=== PATIENT | female | born 1945 | race Caucasian/White ===

== ENCOUNTER → 2019-09-21 14:53 | Outpatient (CLI) | payer MEDICARE, OTHER, SELFPAY ==
[2016-06-11 09:04] VITALS: BMI 25.7
[2019-09-21 16:41] LABS: CRP 6.11 mg/L (0.0-3.0)
[2019-09-24 16:08] LABS: Endomysial Antibody IgA Negative (Negative)
[2019-09-25 13:06] LABS: Immunoglobulin A 318 mg/dL (64-422); t-Transglutaminase IgA <2 U/mL (0-3)
== END ==
PROVIDERS: Family Provider Nurse Practitioner Primary Care; PCP Nurse Practitioner Primary Care; Referring Provider Internal Medicine Gastroenterology; Visit Provider Internal Medicine Gastroenterology
DX: R19.7 Diarrhea, unspecified (principal)
CPT/HCPCS: 36415; 82784; 83516; 86140; 86255

== ENCOUNTER → 2023-06-26 | Outpatient (CLI) | payer MEDICARE, OTHER, SELFPAY ==
--- NOTE | 2023-06-26 13:03 | BD_ITS ---
STUDY: DUAL ENERGY X-RAY ABSORPTIOMETRY / DXA REASON FOR EXAM: Female, 77 years old. SCREENING TECHNIQUE: Bone Mineral Density (BMD) measurements of left forearm and bilateral hips were obtained. COMPARISON: None. FINDINGS: Left Femur Total: g/cm2 (0.807) / T-score (-1.1) / Z-score (0.9) Left Femoral Neck: g/cm2 (0.669) / T-score (-1.6) / Z-score (0.6) Right Femur Total: g/cm2 (0.761) / T-score (-1.5) / Z-score (0.5) Right Femoral Neck: g/cm2 (0.655) / T-score (-1.8) / Z-score (0.5) Left Forearm: g/cm2 (0.481) / T-score (-1.8) / Z-score (1.0) BD/Dexa Bone Density Study IMPRESSION: The patient is considered osteopenic as outlined below according to World Ernesto Organization (WHO) criteria with a moderate fracture risk. Reference Information: The T-score is the number of standard deviations above or below the standard which is normal for young adults at their peak bone mineral density. The World Health Organization (WHO) interprets the T-scores as follows: Above -1 Normal bone density Between -1 and -2.5 Osteopenia Equal to / or below -2.5 Osteoporosis As a practical clinical guideline, osteopenia may be graded as follows: Mild -1 through -1.5 Moderate -1.6 through -2.0 Severe -2.1 through -2.4 The Z-score is the number of standard deviations above or below age-matched controls. A Z-score of less than -1.5 would be considered abnormal. References: 1. NIH Osteoporosis and Related Bone Diseases www osteo.org 2. International Society for Clinical Densitometry www iscd.org 3. National Osteoporosis Foundation www nof.org Electronically Signed: Sheldon Gibbons MD at 14:13 EDT ,
== END | disposition home or self-care (01) ==
PROVIDERS: PCP Nurse Practitioner Primary Care; Referring Provider Internal Medicine Hematology & Oncology; Visit Provider Internal Medicine Hematology & Oncology
DX: Z78.0 Asymptomatic menopausal state (principal); I74.9 Embolism and thrombosis of unspecified artery
CPT/HCPCS: 77080

== ENCOUNTER 2024-03-14 15:06 | Observation (INO) | payer MEDICARE, OTHER, SELFPAY ==
[2024-03-14] VITALS (11 sets, daily range): BP systolic 139–187; BP diastolic 68–121; PULSE 78–115; RESP 16–30; TEMP 35.9–36.6; O2SAT 93–99; BMI 24.0; BMI 24.6
--- NOTE | 2024-03-14 15:08 | EKG12_ITS ---
Test Reason : POSS STROKE Blood Pressure : / mmHG Vent. Rate : 086 BPM Atrial Rate : 086 BPM P-R Int : 156 ms QRS Dur : 082 ms QT Int : 410 ms P-R-T Axes : 000 -02 037 degrees QTc Int : 490 ms Sinus rhythm with Premature atrial complexes Prolonged QT Abnormal ECG Confirmed by Rodney Benton ([id number]), map editor LISETTE ROMO ([id number]) on 03/16/2024 7:58:25 AM Referred By: Confirmed By:Rodney Benton
--- NOTE | 2024-03-14 15:08 | CT_ITS ---
We are attempting to reach an attending provider to discuss findings. An addendum with communication details will be sent when the communication is complete. STUDY: CT BRAIN WITHOUT CONTRAST REASON FOR EXAM: Female, 78 years old. Neuro deficit, acute, stroke suspected Individualized dose optimization techniques were used for this CT. TECHNIQUE: Transaxial CT imaging of the brain was performed without administration of intravenous contrast material. COMPARISON: None FINDINGS: There are calcifications noted in the distal vertebral arteries. There are calcifications noted in the cavernous carotid arteries. This is consistent for atherosclerotic disease. Normal calvarium. Normal soft tissues. There is mild cerebral atrophy with widening of the extra-axial spaces and ventricular dilatation. There are areas of decreased attenuation within the white matter tracts of the supratentorial brain, consistent with microvascular disease changes. Old left basal ganglia infarct. Normal brainstem. There is mild cerebellar atrophy. There is no intracranial hemorrhage. There are no findings of an acute ischemic infarction. Degenerative changes of the mandibular condyles. ASPECTS Score for Acute Strokes: 07/01 CT/STROKE Brain/Head without Cont IMPRESSION: There are no acute findings. Chronic involutional changes of the brain. Electronically Signed: Orville Edwards MD at 15:19 EDT ,
--- NOTE | 2024-03-14 15:09 | CT_ITS ---
We are attempting to reach an attending provider to discuss findings. An addendum with communication details will be sent when the communication is complete. EXAM: CT ANGIOGRAPHY HEAD AND NECK WITH INTRAVENOUS CONTRAST CLINICAL INDICATION: Neuro deficit, acute, stroke suspected TECHNIQUE: [place]/head and neck CT angiography protocol performed with intravenous contrast. This CT exam was performed using one or more of the following dose reduction techniques: automated exposure control, adjustment of the mA and/or kV according to patient size, and/or use of iterative reconstruction technique. MIP reconstructed images were created and reviewed. CONTRAST: IV 100mL Isovue-[id number] RADIATION DOSE: CTDIvol = 21.26 mGy, DLP = 646.06 mGy-cm COMPARISON: No relevant prior studies available. FINDINGS: HEAD: RIGHT ANTERIOR CEREBRAL ARTERY: Unremarkable. No occlusion or significant stenosis. Anterior communicating artery is present. No aneurysm. RIGHT MIDDLE CEREBRAL ARTERY: Unremarkable. No occlusion or significant stenosis. No aneurysm. RIGHT POSTERIOR CEREBRAL ARTERY: Unremarkable. No occlusion or significant stenosis. No aneurysm. 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 No significant stenosis. No dissection or occlusion. RIGHT INTRACRANIAL VERTEBRAL ARTERY: Unremarkable. No significant stenosis. No dissection or occlusion. LEFT ANTERIOR CEREBRAL ARTERY: Unremarkable. No occlusion or significant stenosis. No aneurysm. LEFT MIDDLE CEREBRAL ARTERY: Unremarkable. No occlusion or significant stenosis. No aneurysm. LEFT POSTERIOR CEREBRAL ARTERY: Unremarkable. No occlusion or significant stenosis. No aneurysm. LEFT INTRACRANIAL INTERNAL CAROTID ARTERY: Unremarkable. No significant stenosis. No dissection or occlusion. LEFT INTRACRANIAL VERTEBRAL ARTERY: Unremarkable. No significant stenosis. No dissection or occlusion. BASILAR ARTERY: Unremarkable. No occlusion or significant stenosis. No aneurysm. OTHER VASCULATURE: There is calcified plaque formation of the right cavernous carotid artery, with a mild stenosis (less than 50%). ALL ABOVE CRITERIA BY NASCET. There is calcified plaque formation of the left cavernous carotid artery, with a mild stenosis (less than 50%). ALL ABOVE CRITERIA BY NASCET. No vascular malformation. NECK: RIGHT COMMON CAROTID ARTERY: Unremarkable. No significant stenosis. No dissection or occlusion. RIGHT EXTRACRANIAL INTERNAL CAROTID ARTERY: There is mild atherosclerotic plaque formation of the origin of the right internal carotid artery with less than 50% cross sectional diameter stenosis. ALL ABOVE CRITERIA BY NASCET. No dissection or occlusion. RIGHT EXTERNAL CAROTID ARTERY: Unremarkable. No occlusion. RIGHT EXTRACRANIAL VERTEBRAL ARTERY: Unremarkable. No significant stenosis. No dissection or occlusion. LEFT COMMON CAROTID ARTERY: Unremarkable. No significant stenosis. No dissection or occlusion. LEFT EXTRACRANIAL INTERNAL CAROTID ARTERY: There is mild atherosclerotic plaque formation of the origin of the left internal carotid artery with less than 50% cross sectional diameter stenosis. ALL ABOVE CRITERIA BY NASCET. No dissection or occlusion. LEFT EXTERNAL CAROTID ARTERY: Unremarkable. No occlusion. LEFT EXTRACRANIAL VERTEBRAL ARTERY: Unremarkable. No significant stenosis. No dissection or occlusion. BRACHIOCEPHALIC AND SUBCLAVIAN ARTERIES: Unremarkable as visualized. No occlusion or significant stenosis. LUNG APICES: Unremarkable as visualized. HEAD and NECK: BONES/JOINTS: There are degenerative findings of the cervical spine. No discrete lytic or blastic abnormalities. SOFT TISSUES: Unremarkable. OTHER FINDINGS: Post-processing of the images was performed, with axial imaging and 3D reconstruction. MIPS images were obtained. CAROTID STENOSIS REFERENCE USING NASCET CRITERIA: % ICA stenosis = (1 - narrowest ICA diameter/diameter of distal cervical ICA) x 100. Mild - <50% stenosis. Moderate - 50-69% stenosis. Severe - 70-94% stenosis. Near occlusion - 95-99% stenosis. Occluded - 100% stenosis. CT/STROKE CTA Head AND Neck W/Con IMPRESSION: 1. 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 2. There is mild atherosclerotic plaque formation of the origin of the right internal carotid artery with less than 50% cross sectional diameter stenosis. ALL ABOVE CRITERIA BY NASCET. 3. There is mild atherosclerotic plaque formation of the origin of the left internal carotid artery with less than 50% cross sectional diameter stenosis. ALL ABOVE CRITERIA BY NASCET. 4. There is calcified plaque formation of the right cavernous carotid artery, with a mild stenosis (less than 50%). ALL ABOVE CRITERIA BY NASCET. 5. There is calcified plaque formation of the left cavernous carotid artery, with a mild stenosis (less than 50%). ALL ABOVE CRITERIA BY NASCET. Electronically Signed: Orville Edwards MD at 15:38 EDT ,
--- NOTE | 2024-03-14 15:10 | EDS_ITS ---
HPI History of Present Illness Chief Complaint: Stroke Alert Informant: EMS Onset/Context/Timing Onset: Today Context: Sudden Onset Timing: Continuous Quality and Location: Positive for Right Arm Weakness, Right Leg Weakness and Expressive Aphasia Current Severity: Severe Maximum Severity: Severe Narrative Narrative: 78-year-old female from local long term has a history of prior breast cancer, anxiety and dementia. Reportedly around 230 this afternoon had sudden onset of decreased mental status, expressive aphasia and right-sided weakness. Patient herself is unable to give any history. History currently is from the paramedics. She was assessed in the ambulance bay and taken directly to CAT scan. She is admitted to stroke team. Prior similar symptoms: No Recent [facility] Medical History Encounter for education Breast cancer, left breast Seizure disorder Stroke Vaginal itching Ulcerative colitis Sleep apnea Hypercholesteremia MVP (mitral valve prolapse) Low back pain Left hip pain Insomnia IBS (irritable bowel syndrome) Hypokalemia HTN (hypertension) Panic attacks GERD (gastroesophageal reflux disease) Expressive aphasia Eczema Dermatitis Depression Dementia Chronic osteoarthritis Chronic neck pain Chest wall pain Blepharitis of right eye Back pain Atrophic vaginitis Arthritis Anxiety Abdominal pain Amnesia Home Medications ?Medication ?Instructions ?Recorded ?Last Taken ?Type amlodipine 10 mg tablet 10 mg PO DAILY 06/07/16 06/11/16 06:30 History hydralazine 50 mg tablet 50 mg PO BID 06/07/16 06/11/16 06:30 History atorvastatin 10 mg tablet 10 mg PO DAILY 04/30/23 Unknown History losartan 50 mg tablet 50 mg PO DAILY 04/30/23 Unknown History sertraline 50 mg tablet 50 mg PO DAILY 10/14/23 Unknown History trazodone 100 mg tablet 100 mg PO QHS PRN insomnia 10/14/23 Unknown History anastrozole 1 mg tablet 1 mg PO DAILY #90 TABLETS 12/01/23 Unknown Rx cyclobenzaprine 10 mg tablet 10 mg PO TID 03/14/24 Unknown History hydroxyzine HCl 25 mg tablet 25 mg PO QHS 03/14/24 Unknown History Allergy/AdvReac Type Severity Reaction Status Date / Time VIET Inhibitors Allergy Unknown Itching Verified 10/14/23 14:31 imipramine (From Tofranil) Allergy Unknown Vomiting Verified 10/14/23 14:31 naproxen (From Naprosyn) AdvReac Unknown PT UNSURE Verified 10/14/23 14:31 OF REACTION ondansetron (From Zofran) AdvReac Unknown Constipatio Verified 10/14/23 14:31 n zolpidem (From Ambien) AdvReac Unknown Other Verified 10/14/23 14:31 codeine AdvReac Other Verified 10/14/23 14:31 Family History Mother Cancer LUNG Sister Alzheimer disease Breast cancer Fibromyalgia Migraine CVA (cerebral vascular accident) Brother Alzheimer disease Cancer STOMACH Myocardial infarction Daughter Suicide Surgical History History of arthroscopic knee surgery History of appendectomy History of carpal tunnel release History of cholecystectomy History of lumbar fusion Social History Smoking Status: Never smoker alcohol intake: never substance use type: does not use ROS ROS ED ROS Narrative Unknown. Review of Systems ROS Unobtainable: due to mental status EXAM Physical Exam Narrative Exam Narrative: 78-year-old female on a ambulance cart being assessed in the hallway. Initial blood sugar was 154 vital signs are pending. H EENT exam limited speech. Neck nontender. Lungs are clear. Heart regular rhythm no murmur. Chest wall ribs nontender. Abdomen soft nontender. Extremities no obvious deformity. She appears to have weakness and paralysis to the right upper or right lower extremity. Neurologically she is speaking in nonsensical phrases. She has right-sided weakness. Const Vital Signs: 03/14/24 15:11 03/14/24 15:18 03/14/24 15:26 Temperature 96.7 F L Temperature Source Temporal Pulse Rate 93 94 Respiratory Rate 19 H 20 H Blood Pressure 148/68 H 187/121 H Blood Pressure Mean 94 143 Pulse Ox 97 98 Oxygen Delivery Method Room Air Room Air Room Air 03/14/24 15:27 03/14/24 15:38 Temperature Temperature Source Pulse Rate 96 86 Respiratory Rate 25 H 30 H Blood Pressure 179/73 H 178/83 H Blood Pressure Mean 108 114 Pulse Ox 98 93 Oxygen Delivery Method Room Air Room Air Positive well nourished and well developed; Negative for cachectic, contractures or unkempt General Appearance ED: well developed; Negative for unkempt, cachectic, contractures or NAD Nutritional Appearance: Negative for cachectic HEENT Reports moist mucous membranes Negative for atraumatic or trauma Eyes PERRL and EOMs intact bilaterally General Eye ED: Negative for pale conjunctiva or scleral icterus Neck no lymphadenopathy, supple and no JVD Chest Wall inspection of chest normal and palpation of chest normal Resp normal respiratory effort and clear to auscultation bilaterally Effort and Inspection: Negative for retractions Auscultation: Negative for rales, rhonchi or wheezes Cardio no murmurs Rate: regular rate Rhythm: regular rhythm GI normal to inspection, nondistended, normoactive bowel sounds, soft to palpation, non-tender, non-distended and no masses Inspection: Negative for abdominal distention Auscultation: normoactive bowel sounds Palpation: Negative for tender, guarding or hepatomegaly Back/Spine no CVA tenderness Extremity normal to inspection General Extremety ED: Negative for deformity or edema General Extremity: Negative for deformity or edema Neuro No oriented x3 Sensorium / Orientation: alert Speech: Negative for speech normal Motor Exam: strength abnormal; Negative for strength 5/5 throughout Psych Negative for mental status grossly normal Appearance: Negative for unkempt Skin no wounds General Skin Exam: Negative for jaundice Lesions: no lesions Rashes: no rashes NIHSS NIHSS Initial: 1a Level of Consciousness: 1 1b LOC Questions (Score 2 if aphasic/stupor): 0 1c LOC Commands (Only score 1st attempt): 0 2 Best Gaze (If aphasic, use reflexive mvmts.): 0 3 Visual: 0 4 Facial Palsy: 0 5 Motor Arm Right (UN = amputation/fusion): 4 5 Motor Arm Left: 0 6 Motor Leg Right: 4 6 Motor Leg Left: 0 7 Limb ataxia (Only + if out of proportion): 2 8 Sensory (Aphasia/stupor=0 or 1, coma=2): 0 9 Best Language: 1 10 Dysarthria (mute, coma=2, intubated=UN): 0 11 Extinction and Inattention (only scored if +): 1 Total Score: 13 MDM MDM MDM Narrative Medical decision making narrative: 78-year-old female from a local nursing facility with onset of strokelike symptoms of right-sided weakness since around 230. Is been made a stroke team currently is in CT. Repeat exam at 3:30 PM shortly after she arrived patient returned from CAT scan her neurological symptoms is completely resolved. Her NIH now is 0. She has normal speech. No facial droop. 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 I suspect she had a TIA. Patient's initial NIH is around 13. On repeat exam at 0. She has regained all of her motor function. And speech. History & Record Review Discussion w/independent historian: Patient Lab Data Attestation: I reviewed the patient's lab results. Lab results narrative: CT of the brain without contrast shows no acute abnormality. No bleed. No acute stroke. CTA shows a possible 6 aneurysm. CBC shows a white count of 6. H&H 11.8 and 36. Platelets 283. Chemistries show potassium of 3.1. Gap of 8. BUN of 13 creatinine 1.1. Glucose 162. Troponin 9. Labs: Laboratory Results - last 24 hr 03/14/24 15:15 WBC 6.1 RBC 3.97 L Hgb 11.8 L Hct 36.4 L MCV 91.7 MCH 29.7 MCHC 32.4 RDW Std Deviation 42.6 RDW Coeff of Fabian 12.8 Plt Count 283 MPV 9.4 Immature Gran % (Auto) 0.300 Neut % (Auto) 64.0 Lymph % (Auto) 23.7 Barron % (Auto) 9.7 Eos % (Auto) 1.6 Baso % (Auto) 0.7 Absolute Neuts (auto) 3.9 Absolute Lymphs (auto) 1.45 Nucleated RBC % 0 Sodium 144 Potassium 3.1 L Chloride 109 H Carbon Dioxide 27.0 Anion Gap 8 BUN 13 Creatinine 1.15 H Estim Creat Clear Calc 34.25 Est GFR (MDRD) Af Amer 59 L Est GFR (MDRD) Non-Af 48 L BUN/Creatinine Ratio 11.3 Glucose 162 H Calcium 9.0 Troponin I High Sens 9 Radiography Chest X-Ray - ED: 1 View, Read by ED Physician, Lungs, Mediastinum, Bony Structures, No Acute Disease and Chronic Changes Diagnostic Testing: Clinical Impression(s) from Imaging Studies Brain CT 03/14/24 15:08 IMPRESSION: There are no acute findings. Chronic involutional changes of the brain. Electronically Signed: Orville Edwards MD at 15:19 EDT , ADDENDUM: 03/14/24 1545 IMPRESSION: There are no acute findings. Chronic involutional changes of the brain. N.B. : The above Results were Read Back by Orville Edwards MD to Benjamin Espinoza MD, and understanding confirmed on 03/14/2024 15:39:00 (ET). Electronically Signed: Orville Edwards MD at 15:19 EDT , Head/Neck CTA 03/14/24 15:09 IMPRESSION: 1. 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 2. There is mild atherosclerotic plaque formation of the origin of the right internal carotid artery with less than 50% cross sectional diameter stenosis. ALL ABOVE CRITERIA BY NASCET. 3. There is mild atherosclerotic plaque formation of the origin of the left internal carotid artery with less than 50% cross sectional diameter stenosis. ALL ABOVE CRITERIA BY NASCET. 4. There is calcified plaque formation of the right cavernous carotid artery, with a mild stenosis (less than 50%). ALL ABOVE CRITERIA BY NASCET. 5. There is calcified plaque formation of the left cavernous carotid artery, with a mild stenosis (less than 50%). ALL ABOVE CRITERIA BY NASCET. Electronically Signed: Orville Edwards MD at 15:38 EDT , ADDENDUM: 03/14/24 1548 IMPRESSION: 1. 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 2. There is mild atherosclerotic plaque formation of the origin of the right internal carotid artery with less than 50% cross sectional diameter stenosis. ALL ABOVE CRITERIA BY NASCET. 3. There is mild atherosclerotic plaque formation of the origin of the left internal carotid artery with less than 50% cross sectional diameter stenosis. ALL ABOVE CRITERIA BY NASCET. 4. There is calcified plaque formation of the right cavernous carotid artery, with a mild stenosis (less than 50%). ALL ABOVE CRITERIA BY NASCET. 5. There is calcified plaque formation of the left cavernous carotid artery, with a mild stenosis (less than 50%). ALL ABOVE CRITERIA BY NASCET. N.B. : The above Results were Read Back by Orville Edwards MD to Benjamin Espinoza MD, and understanding confirmed on 03/14/2024 15:41:41 (ET). Electronically Signed: Orville Edwards MD at 15:38 EDT , Chest x-ray, portable, single view interpreted by myself shows no acute abnormality. Normal cardiac silhouette. Normal lung luis. Chronic changes. Rhythm Strip Rhythm Strip: Sinus Rhythm Rate: 86 Ectopy: PAC(s) EKG Initial EKG: Interpretation: Sinus Rhythm and No Acute Injury Pattern Comments: Normal sinus rhythm rate 86. Occasional PAC. No dysrhythmia. No IA. Discharge Plan Triage Chief Complaint: Stroke Alert ED Provider: Benjamin Espinoza Dx/Rx/DC Orders Clinical Impression: Brain TIA, Breast cancer, left breast, Acute hypokalemia Prescriptions: No Action atorvastatin 10 mg tablet 10 mg PO DAILY losartan 50 mg tablet 50 mg PO DAILY trazodone 100 mg tablet 100 mg PO QHS PRN (Reason: insomnia) sertraline 50 mg tablet 50 mg PO DAILY amlodipine 10 MG tablet 10 mg PO DAILY hydralazine 50 MG tablet 50 mg PO BID cyclobenzaprine 10 mg tablet 10 mg PO TID hydroxyzine HCl 25 mg tablet 25 mg PO QHS anastrozole 1 mg tablet 1 mg PO DAILY Qty: 90 3RF Primary Care Provider: Ruthann Mcdowell NP Referrals: Ruthann Mcdowell NP, TAX EXAMINING TECHNICIAN-C [Primary Care Provider] - Print Language: Icelandic
--- NOTE | 2024-03-14 15:15 | NURSING ---
NO OLD EKGS
--- NOTE | 2024-03-14 15:16 | ED.RN ---
Pt sent to CT from ems entrance, NIHSS not completed prior to CT scan.
[2024-03-14 15:28] LABS: Absolute Lymphocyte Count 1.45 X10^3/uL (0.83-4.51); Absolute Neutrophil Count 3.9 X10^3/uL (2.0-7.7); Basophil# 0.04 X10^3/uL; Basophil% 0.7 % (0-1); Eosinophils% 1.6 % (0-5); Hematocrit 36.4 % (37-47); Hemoglobin 11.8 g/dL (12.0-15.0); Lymphocyte # 1.45 X10^3/ul (0.83-4.51); Lymphocyte % 23.7 % (19-41); Mean Corp Hgb Conc 32.4 g/dL (32-36); Mean Corpuscular Hgb 29.7 pg (27.0-32.0); Mean Corpuscular Volume 91.7 fL (81-99); Mean Platelet Vol. 9.4 fl (6.2-12.0); Monocyte# 0.59 X10^3/uL; Monocyte% 9.7 % (0-10); NRBC Flagged by Analyzer 0 % (0-5); Neutrophil # 3.91 X10^3/uL (2.7-7.7); Platelet Count 283 K/mm3 (150-450); RBC Distribution Width CV 12.8 % (11.6-14.6); RBC Distribution Width SD 42.6 fl (35.1-43.9); Red Blood Count 3.97 M/mm3 (4.2-5.4); White Blood Count 6.1 K/mm3 (4.4-11.0)
[2024-03-14 15:40] LABS: Anion Gap 8 (5-15); BUN 13 mg/dL (7-18); BUN/Creat Ratio 11.3 RATIO (10-20); Chloride 109 mmol/L (98-107); Creatinine, Serum 1.15 mg/dL (0.55-1.02); EST Glomerular Filtration Rate 48 mL/min (>60); Est Glom Filt Rate - Afr Amer 59 mL/min (>60); Estimated Creatinine Clearance 34.25 ml/min; Glucose 162 mg/dL (74-106); Potassium 3.1 mmol/L (3.5-5.1); Sodium Level 144 mmol/L (136-145); Troponin-I HS 9 pg/mL (3.0-54.0)
--- NOTE | 2024-03-14 15:50 | RAD_ITS ---
STUDY: XR Chest 1 View 03/14/2024 3:49 PM REASON FOR EXAM: Female, 78 years old. Neuro deficit, acute, stroke suspected COMPARISON: None TECHNIQUE: XR Chest 1 View FINDINGS: There is no demonstrated pleural abnormality. There are multiple metallic clips in the left axilla. This is consistent for a prior axillary dissection. There are mastectomy changes noted. Normal heart size. Normal mediastinum. Normal fredi. Prominent appearing increased interstitial lung markings. Normal visualized pulmonary arteries. There is atherosclerotic calcification of the aortic arch with tortuosity. There are diffuse degenerative changes of the visualized thoracic spine. There is degenerative osteoarthritis of the bilateral shoulders. There are no acute findings of the upper abdomen. RAD/Chest 1 View IMPRESSION: There are no acute findings. Electronically Signed: Orville Edwards MD at 16:21 EDT ,
--- NOTE | 2024-03-14 15:53 | ED.RN ---
Per family, pt. orientation to place and time varies and she is commonly not oriented to place and time.
[2024-03-14 15:58] LABS: International Normalized Ratio 0.9; Prothrombin Time (Protime)PT. 12.5 SECONDS (11.7-14.9)
--- NOTE | 2024-03-14 16:44 | ED.RN ---
Dr. Espinoza notified of [facility] 4-6 depending on assessment. Pt. is disoriented baseline.
--- NOTE | 2024-03-14 17:01 | PCM.HP.STD ---
HPI - General General Date of Admission: 03/14/24 Date of Service: 03/14/24 Chief Complaint: Strokelike symptoms HPI Narrative VIJI AMANDA, is a 78 F who presented to [facility] ED on 03/14/2024 as a stroke alert. I saw patient at bedside in the ED, daughter present. Patient lives at [facility] and presented from there this afternoon with sudden onset decreased mental status, expressive aphasia and right-sided weakness. Per daughter, patient's family friend arrived later this afternoon and patient apparently did not recognize him and appeared to have slurring of her speech, so he called EMS. In the ED, patient's initial NIHSS score was 13 for level of consciousness, significant right arm weakness and sensory changes, slurred speech and inattention to right-sided deficits. She was taken urgently to CAT scan and had CT brain without contrast and CTA head/neck done. Upon returning from the scan, ED physician noted that the patient's symptoms had essentially resolved. She did remain somewhat confused and was speaking somewhat nonsensically but her right arm weakness and sensory changes had completely resolved. CT brain was unremarkable. CTA head/neck showed a small focal aneurysmal dilation of the distal right ICA measuring 7 mm in diameter, was otherwise unremarkable. On my encounter, patient was making appropriate eye contact with me but she had difficulty answering my questions appropriately. When I asked where she lived, she stated that she currently lives in [place] but also has a house in [place]. Per the daughter, they moved the patient to [place] about 2 months ago. Patient was living alone at home and was having more difficulty completing her ADLs on her own, so family made the decision to move her to [place]. Daughter notes that the patient was not very happy about this decision. Daughter also notes that the patient has began to have some cognitive impairment, though she currently is more confused than her normal. Vitals in the ED notable for hypertension with systolics in the 160s to 170s, otherwise unremarkable. Labs notable for potassium 3.1, creatinine 1.15 (baseline 0.9-1.0), glucose 165, otherwise unremarkable. Chest x-ray was unremarkable. CT head imaging with findings as noted above. EKG showed normal sinus rhythm with no ischemic changes. [facility] Medical History Encounter for education Breast cancer, left breast Seizure disorder Stroke Vaginal itching Ulcerative colitis Sleep apnea Hypercholesteremia MVP (mitral valve prolapse) Low back pain Left hip pain Insomnia IBS (irritable bowel syndrome) Hypokalemia HTN (hypertension) Panic attacks GERD (gastroesophageal reflux disease) Expressive aphasia Eczema Dermatitis Depression Dementia Chronic osteoarthritis Chronic neck pain Chest wall pain Blepharitis of right eye Back pain Atrophic vaginitis Arthritis Anxiety Abdominal pain Amnesia Home Medications ?Medication ?Instructions ?Recorded ?Last Taken ?Type amlodipine 10 mg tablet 10 mg PO DAILY blood pressure 06/07/16 06/11/16 06:30 History hydralazine 50 mg tablet 50 mg PO BID blood pressure 06/07/16 06/11/16 06:30 History atorvastatin 10 mg tablet 10 mg PO DAILY cholesterol 04/30/23 Unknown History losartan 50 mg tablet 50 mg PO DAILY blood pressure 04/30/23 Unknown History sertraline 50 mg tablet 50 mg PO DAILY mental health 10/14/23 Unknown History trazodone 100 mg tablet 100 mg PO QHS PRN insomnia 10/14/23 Unknown History anastrozole 1 mg tablet 1 mg PO DAILY breast cancer #90 12/01/23 Unknown Rx TABLETS cyclobenzaprine 10 mg tablet 10 mg PO TID muscle spasms 03/14/24 Unknown History hydroxyzine HCl 25 mg tablet 25 mg PO QHS itching 03/14/24 Unknown History Allergy/AdvReac Type Severity Reaction Status Date / Time VIET Inhibitors Allergy Unknown Itching Verified 10/14/23 14:31 imipramine (From Tofranil) Allergy Unknown Vomiting Verified 10/14/23 14:31 naproxen (From Naprosyn) AdvReac Unknown PT UNSURE Verified 10/14/23 14:31 OF REACTION ondansetron (From Zofran) AdvReac Unknown Constipatio Verified 10/14/23 14:31 n zolpidem (From Ambien) AdvReac Unknown Other Verified 10/14/23 14:31 codeine AdvReac Other Verified 10/14/23 14:31 Family History Mother Cancer LUNG Sister Alzheimer disease Breast cancer Fibromyalgia Migraine CVA (cerebral vascular accident) Brother Alzheimer disease Cancer STOMACH Myocardial infarction Daughter Suicide Surgical History History of arthroscopic knee surgery History of appendectomy History of carpal tunnel release History of cholecystectomy History of lumbar fusion Social History Smoking Status: Never smoker alcohol intake: never substance use type: does not use ROS Constitutional Constitutional: Denies chills, fatigue or fever(s) Eyes Eyes: Denies change in vision Cardiovascular Cardiovascular: Denies chest pain Respiratory/Chest Respiratory/Chest: Denies shortness of breath at rest Gastrointestinal Gastrointestinal: Denies abdominal pain Neurologic Neurologic: Reports abnormal speech and confusion; Denies headache(s), numbness or paresthesias Vital Signs Vital Signs Vital Signs: 03/14/24 15:11 03/14/24 15:18 03/14/24 15:26 Temperature 96.7 F L Temperature Source Temporal Pulse Rate 93 94 Respiratory Rate 19 H 20 H Blood Pressure 148/68 H 187/121 H Blood Pressure Mean 94 143 Pulse Ox 97 98 Oxygen Delivery Method Room Air Room Air Room Air 03/14/24 15:27 03/14/24 15:38 03/14/24 16:08 Temperature Temperature Source Pulse Rate 96 86 84 Respiratory Rate 25 H 30 H 19 H Blood Pressure 179/73 H 178/83 H 162/90 H Blood Pressure Mean 108 114 114 Pulse Ox 98 93 94 Oxygen Delivery Method Room Air Room Air Room Air 03/14/24 16:30 03/14/24 16:39 Temperature 97.8 F Temperature Source Pulse Rate 80 88 Respiratory Rate 18 18 Blood Pressure 139/120 H 162/90 H Blood Pressure Mean 126 114 Pulse Ox 98 98 Oxygen Delivery Method Room Air Weight Weight: 63.5 kg Body Mass Index (BMI) 24.0 Physical Exam Const alert and no apparent distress Constitutional Narrative: Elderly female, sitting up comfortably in bed, making appropriate eye contact but not answering questions appropriately for me, otherwise in no acute distress. General Appearance: cooperative and comfortable HEENT normocephalic, head/scalp atraumatic, hearing grossly normal bilaterally, nasal mucous membranes and turbinates normal and moist oral mucous membranes Eyes PERRL, EOMs intact bilaterally and conjunctivae normal Neck full ROM Chest inspection of chest normal Resp normal respiratory effort, normal air movement, no use of accessory muscles and clear to auscultation bilaterally Cardio regular rate, regular rhythm, no murmurs and peripheral pulses 2+ throughout GI normal to inspection, nondistended, normoactive bowel sounds, soft to palpation, non-tender and non-distended Back/Spine normal ROM Extremity normal to inspection, full ROM and no pedal edema Skin no rashes or lesions noted Neuro moves all extremities and no focal motor deficits Neuro Narrative: Alert but only oriented to person, not to place or time. Attempts to answer questions but answers are nonsensical. Otherwise no neurologic abnormalities noted. Motor Exam: strength 5/5 throughout Psych Mood & Affect: anxious Results Lab / Micro Data 03/14/24 15:15 03/14/24 15:15 Labs: Laboratory Results - last 24 hr 03/14/24 15:15: WBC 6.1, RBC 3.97 L, Hgb 11.8 L, Hct 36.4 L, MCV 91.7, MCH 29.7, MCHC 32.4, RDW Std Deviation 42.6, RDW Coeff of Fabian 12.8, Plt Count 283, MPV 9.4, Immature Gran % (Auto) 0.300, Neut % (Auto) 64.0, Lymph % (Auto) 23.7, Monroe % (Auto) 9.7, Eos % (Auto) 1.6, Baso % (Auto) 0.7, Absolute Neuts (auto) 3.9, Absolute Lymphs (auto) 1.45, Nucleated RBC % 0, PT 12.5, INR 0.9, APTT 26.0, Sodium 144, Potassium 3.1 L, Chloride 109 H, Carbon Dioxide 27.0, Anion Gap 8, BUN 13, Creatinine 1.15 H, Estim Creat Clear Calc 34.25, Est GFR (MDRD) Af Amer 59 L, Est GFR (MDRD) Non-Af 48 L, BUN/Creatinine Ratio 11.3, Glucose 162 H, Calcium 9.0, Troponin I High Sens 9 Rhythm Strip Rhythm Strip: Sinus Rhythm Rate: 86 Ectopy: PAC(s) Imaging Radiology Impression Brain CT 03/14/24 15:08 IMPRESSION: There are no acute findings. Chronic involutional changes of the brain. Electronically Signed: Orville Edwards MD at 15:19 EDT , ADDENDUM: 03/14/24 1545 IMPRESSION: There are no acute findings. Chronic involutional changes of the brain. N.B. : The above Results were Read Back by Orville Edwards MD to Benjamin Espinoza MD, and understanding confirmed on 03/14/2024 15:39:00 (ET). Electronically Signed: Orville Edwards MD at 15:19 EDT , Head/Neck CTA 03/14/24 15:09 IMPRESSION: 1. 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 2. There is mild atherosclerotic plaque formation of the origin of the right internal carotid artery with less than 50% cross sectional diameter stenosis. ALL ABOVE CRITERIA BY NASCET. 3. There is mild atherosclerotic plaque formation of the origin of the left internal carotid artery with less than 50% cross sectional diameter stenosis. ALL ABOVE CRITERIA BY NASCET. 4. There is calcified plaque formation of the right cavernous carotid artery, with a mild stenosis (less than 50%). ALL ABOVE CRITERIA BY NASCET. 5. There is calcified plaque formation of the left cavernous carotid artery, with a mild stenosis (less than 50%). ALL ABOVE CRITERIA BY NASCET. Electronically Signed: Orville Edwards MD at 15:38 EDT , ADDENDUM: 03/14/24 1548 IMPRESSION: 1. 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 2. There is mild atherosclerotic plaque formation of the origin of the right internal carotid artery with less than 50% cross sectional diameter stenosis. ALL ABOVE CRITERIA BY NASCET. 3. There is mild atherosclerotic plaque formation of the origin of the left internal carotid artery with less than 50% cross sectional diameter stenosis. ALL ABOVE CRITERIA BY NASCET. 4. There is calcified plaque formation of the right cavernous carotid artery, with a mild stenosis (less than 50%). ALL ABOVE CRITERIA BY NASCET. 5. There is calcified plaque formation of the left cavernous carotid artery, with a mild stenosis (less than 50%). ALL ABOVE CRITERIA BY NASCET. N.B. : The above Results were Read Back by Orville Edwards MD to Benjamin Espinoza MD, and understanding confirmed on 03/14/2024 15:41:41 (ET). Electronically Signed: Orville Edwards MD at 15:38 EDT , Chest X-Ray 03/14/24 15:50 IMPRESSION: There are no acute findings. Electronically Signed: Orville Edwards MD at 16:21 EDT , Assessment & Plan Assessment/Plan (1) Brain TIA: (2) Acute hypokalemia: PLAN: Plan Patient is a 78-year-old female who presented [facility] ED on 03/14/2024 for strokelike symptoms. 1. Suspected TIA ? Admit under observation status to PCU. Teleneurology consulted. Symptoms seem most consistent with a TIA given NIHSS score of 13 on arrival to ED, followed by resolution of most symptoms. CT head imaging on admit as noted above. Admit orders placed per stroke protocol order sent. MRI brain without contrast ordered. Echo ordered. Passed dysphagia screen in the ED. PT/OT/case management consulted. Allow permissive hypertension for first 24 hours, will hold patient's home antihypertensive medications. Started aspirin 81 mg daily and increased home atorvastatin to 40 mg daily. Lipid panel, A1c and TSH ordered. 2. 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 CTA head/neck showed a focal aneurysmal dilation of the distal right internal carotid artery measuring 7 mm in diameter. Suspect this is an incidental finding and not related to her current presentation. No need for vascular surgery evaluation while inpatient, can consider outpatient evaluation if needed. 3. Hypokalemia ? Potassium 3.1 on admit. Magnesium and phosphorus ordered. Replete as needed. Chronic medical conditions: ? Hypertension: On home amlodipine, losartan and hydralazine. Holding home medications for now as noted above. ? Depression/anxiety/insomnia: Stable. Continue home sertraline, hydroxyzine at night and trazodone at night as needed. ? History of breast cancer: Follows with Dr. Riley, last office visit in 09/2023. 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 S/p partial mastectomy in 04/2023. Stable. Continue home anastrozole. Can resume zoledronic acid injections every 6 months on discharge. Continue outpatient oncology follow-up as needed. DVT prophylaxis: SCDs CODE STATUS: Full code, verified Expected disposition: Back to assisted living facility, 1 to 2 days Total clinical time spent by myself addressing the patient's medical issues, reviewing all the data, and collaborating with patient's care team: 55 minutes. Charges/Coding Visit Charges Inpatient E&M: 48184 Init Hosp L2
--- NOTE | 2024-03-14 17:10 | ECHOD_ITS ---
Reason For Study: TIA/CVA Procedure This was a 2D Doppler, Color Flow transthoracic echocardiogram. Exam performed portable in patient room. Left Ventricle Normal LV size. Mild concentric left ventricular hypertrophy. The left ventricular ejection fraction is 65 %. Normal diastology for age. Right Ventricle Normal right ventricle. Atria The left and right atria are normal. Bubble contrast study is negative for PFO/ASD. Mitral Valve Trivial mitral valve insufficiency. Tricuspid Valve Mild tricuspid valve insufficiency. Normal pulmonary artery pressure. Aortic Valve Aortic sclerosis, no stenosis. Mild (1+) aortic valve insufficiency. Pulmonic Valve The pulmonic valve is not well visualized. Great Vessels Normal sized aortic root. Pericardium/Pleural No pericardial effusion. Medication Performed a rapid injection of agitated mix of 9 cc saline and 1cc air to assess for atrial septal defect. MMode/2D Measurements & Calculations LVIDd: 3.9 cm IVSd: 1.3 cm LVOT diam: 2.0 cm LVIDs: 2.3 cm LVPWd: 1.1 cm RVDd: 2.9 cm FS: 40.8 % LVOT area: 3.0 cm2 Ao root diam: 2.9 cm LAV(MOD-bp): 26.9 ml LVAd ap4: 22.7 cm2 LAV(MOD-bp) Indexed: 15.9 ml/m2 LVLd ap4: 7.6 cm LAV(MOD-sp2): 30.4 ml EDV(MOD-sp4): 57.1 ml LAV(MOD-sp4): 23.8 ml EDV(sp4-el): 57.9 ml LVAs ap4: 12.7 cm2 LVLs ap4: 7.0 cm ESV(MOD-sp4): 19.3 ml ESV(sp4-el): 19.7 ml EF(MOD-sp4): 66.2 % EF(sp4-el): 66.0 % SV(MOD-sp4): 37.8 ml SV(sp4-el): 38.3 ml LA A4 area: 12.4 cm2 LA dimension(2D): 3.1 cm RA A4 area: 11.0 cm2 TAPSE: 2.1 cm Time Measurements MV dec time: 0.23 sec Doppler Measurements & Calculations MV E max layo: 102.2 cm/sec Lat Peak E' Layo: 7.9 cm/sec Med Peak E' Layo: 6.1 cm/sec MV A max layo: 117.2 cm/sec E/E' lat: 13.0 E/E' med: 16.8 MV E/A: 0.87 MV dec slope: 438.5 cm/sec2 Ao V2 max: 169.4 cm/sec LV V1 max: 123.9 cm/sec Ao max P.5 mmHg LV V1 max P.1 mmHg Ao V2 mean: 107.5 cm/sec LV V1 mean P.5 mmHg Ao mean P.5 mmHg LV V1 mean: 87.2 cm/sec Ao V2 VTI: 36.4 cm LV V1 VTI: 27.2 cm AV (velocity ratio): 0.75 CURT(I,D): 2.2 cm2 CURT(V,D): 2.2 cm2 SV(LVOT): 81.9 ml PA V2 max: 85.0 cm/sec TR max layo: 273.5 cm/sec TR max P.9 mmHg ECHO/Echo Complete Interpretation Summary Mild concentric left ventricular hypertrophy. The left ventricular ejection fraction is 65 %. Bubble contrast study is negative for PFO/ASD. Mild tricuspid valve insufficiency. Aortic sclerosis, no stenosis. Mild (1+) aortic valve insufficiency. Ordering Physician: Alvaro Stephens Referring Physician: Ruthann Mcdowell Performed By: Hilary Davila RDCS
--- NOTE | 2024-03-14 17:12 | NURSING ---
PCU OBS TIA, HX OF BR CA, MILD DEMENTIA
[2024-03-14 17:49] LABS: Phosphorus 2.8 mg/dL (2.5-4.9)
[2024-03-14 17:53] LABS: Thyroid Stim Hormone (TSH) 1.85 uIU/mL (0.358-3.74)
[2024-03-14 17:54] LABS: Hemoglobin A1c 5.9 % (3.8-5.6)
--- NOTE | 2024-03-14 18:05 | ED.RN ---
NIH completed with TIN POURER
[2024-03-14] MEDS: Potassium Chloride Oral Soln 20 MEQ/15 ML UDC 40 MEQ PO (19:55)
[2024-03-14] MEDS: Atorvastatin Calcium 40 MG Tablet PO (21:57)
[2024-03-14] MEDS: hydrOXYzine PAM 25 MG Capsule PO (21:57)
[2024-03-14] MEDS: cycloBENZAPRine HCl 5 MG TABLET PO (21:58)
[2024-03-15 02:00] VITALS: BP 164/76; PULSE 82; RESP 16; TEMP 36.4; O2SAT 98
[2024-03-15 06:00] VITALS: BP 153/75; PULSE 82; RESP 16; TEMP 36.3; O2SAT 97
[2024-03-15 06:09] LABS: Hematocrit 36.8 % (37-47); Mean Corp Hgb Conc 32.6 g/dL (32-36); Mean Corpuscular Hgb 29.9 pg (27.0-32.0); Mean Corpuscular Volume 91.5 fL (81-99); Mean Platelet Vol. 9.6 fl (6.2-12.0); Platelet Count 278 K/mm3 (150-450); RBC Distribution Width CV 12.8 % (11.6-14.6); RBC Distribution Width SD 43.1 fl (35.1-43.9); Red Blood Count 4.02 M/mm3 (4.2-5.4); White Blood Count 6.7 K/mm3 (4.4-11.0)
[2024-03-15] MEDS: cycloBENZAPRine HCl 5 MG TABLET PO ×2 (06:25→14:22)
[2024-03-15 06:45] LABS: Cholesterol 156 mg/dL (200); High Density Lipoprotein 71 mg/dL; Triglycerides 66 mg/dL; Very Low Density Lipoprotein 13 mg/dL (5-40)
[2024-03-15 06:52] LABS: Anion Gap 8 (5-15); BUN 9 mg/dL (7-18); BUN/Creat Ratio 12.2 RATIO (10-20); Calcium,Total 8.9 mg/dL (8.5-10.1); Chloride 108 mmol/L (98-107); Creatinine, Serum 0.74 mg/dL (0.55-1.02); EST Glomerular Filtration Rate 80 mL/min (>60); Est Glom Filt Rate - Afr Amer 97 mL/min (>60); Estimated Creatinine Clearance 49.24 ml/min; Glucose 124 mg/dL (74-106); Potassium 3.2 mmol/L (3.5-5.1); Sodium Level 142 mmol/L (136-145)
[2024-03-15 07:28] VITALS: O2SAT 95
[2024-03-15] MEDS: Sertraline 50 MG Tablet PO (08:46)
[2024-03-15] MEDS: Anastrozole 1 MG TABLET PO (08:46)
[2024-03-15] MEDS: Potassium Chloride Oral Soln 20 MEQ/15 ML UDC 40 MEQ PO (08:46)
[2024-03-15] MEDS: Aspirin 81 MG TAB.CHEW PO (08:46)
[2024-03-15 09:33] VITALS: BP 145/76; PULSE 88; RESP 18; TEMP 36.7; O2SAT 99
--- NOTE | 2024-03-15 10:00 | MRI_ITS ---
HISTORY: TIA/CVA, confusion, right sided weakness, aphasia. TECHNIQUE: Multiplanar and multisequence MR images of the brain were obtained without contrast. 277 images. COMPARISON: CT prior day. FINDINGS: BRAIN PARENCHYMA: Small chronic left dhaliwal radiata and basal ganglia infarct. Moderate zones of increased T2 FLAIR signal in the bilateral cerebral white matter. No abnormal focus of restricted diffusion. No acute intracranial hemorrhage identified. CSF SPACES: Mild volume loss. No significant midline shift or other mass effect.No extra-axial fluid collection. VASCULAR SYSTEM: Major intracranial flow voids are maintained. PARANASAL SINUSES AND MASTOID AIR CELLS: Trace fluid in the mastoid air cells. ORBITS: Bilateral lens resections. MRI/Brain without Contrast IMPRESSION: No evidence for acute infarct. Moderate chronic involutional and white matter changes. Old left basal ganglia infarct. Electronically Signed: Giulia Rob MD at 10:42 EDT ,
--- NOTE | 2024-03-15 10:28 | CON.PCM.NE_ITS ---
Assessment and Plan: Stroke Assessment/Plan VIJI AMANDA is a 78 F with a history of HTN, stroke, seizure disorder, aphasia, dementia, depression who presents for evaluation of aphasia and right sided weakness that has resolved. Neurological examination shows . Neuroimaging shows CT: negative, CTA:Aneurysmal dilatation of the GERA, mild plaque bilateral ICA <50% . LDL: 72, HbA1c: 5.9. Likely TIA or minor stroke. Not a TNK or thrombectomy candidate. 1. Plan MRI brain, ECHO, 30 day event monitor upon DC 2. Continue ASA, statin 3. PT, OT, swallow evaluation 4. HTN: Aim normotension 5. R ICA aneurysm. NSY evaluation as out patient. Thanks for ariel. Spent 50 minutes in management of this patient. HPI Consult Data Date of Consult: 03/15/24 HPI Narrative HPI Narrative: VIJI AMANDA, is a 78 F who presents to [facility] ED on 03/14/2024 as a stroke alert. I saw patient at bedside in the ED, daughter present. Patient lives at [facility] and presented from there this afternoon with sudden onset decreased mental status, expressive aphasia and right-sided weakness. She did not recognize family friend and appeared to have slurring of her speech, so he called EMS. In the ED, patient's initial NIHSS score was 13 for level of consciousness, significant right arm weakness and sensory changes, slurred speech and inattention to right-sided deficits. She was taken urgently to CAT scan and had CT brain without contrast and CTA head/neck done. Upon returning from the scan, ED physician noted that the patient's symptoms had essentially resolved. She did remain somewhat confused and was speaking somewhat nonsensically but her right arm weakness and sensory changes had completely resolved. CT brain was unremarkable. CTA head/neck showed a small focal aneurysmal dilation of the distal right ICA measuring 7 mm in diameter, was otherwise unremarkable. [facility] Medical History Encounter for education Breast cancer, left breast Seizure disorder Stroke Vaginal itching Ulcerative colitis Sleep apnea Hypercholesteremia MVP (mitral valve prolapse) Low back pain Left hip pain Insomnia IBS (irritable bowel syndrome) Hypokalemia HTN (hypertension) Panic attacks GERD (gastroesophageal reflux disease) Expressive aphasia Eczema Dermatitis Depression Dementia Chronic osteoarthritis Chronic neck pain Chest wall pain Blepharitis of right eye Back pain Atrophic vaginitis Arthritis Anxiety Abdominal pain Amnesia Home Medications ?Medication ?Instructions ?Recorded ?Last Taken ?Type amlodipine 10 mg tablet 10 mg PO DAILY blood pressure 06/07/16 03/14/24 History hydralazine 50 mg tablet 50 mg PO BID blood pressure 06/07/16 03/14/24 History atorvastatin 10 mg tablet 10 mg PO DAILY cholesterol 04/30/23 03/13/24 History losartan 50 mg tablet 100 mg PO DAILY blood pressure 04/30/23 03/14/24 History sertraline 50 mg tablet 75 mg PO DAILY mental health 10/14/23 03/14/24 History trazodone 100 mg tablet 50 mg PO QHS PRN insomnia 10/14/23 03/13/24 History anastrozole 1 mg tablet 1 mg PO DAILY breast cancer #90 12/01/23 03/14/24 Rx TABLETS cyclobenzaprine 10 mg tablet 10 mg PO TID muscle spasms 03/14/24 03/14/24 History hydroxyzine HCl 25 mg tablet 25 mg PO QHS anxiety 03/14/24 03/14/24 History Allergy/AdvReac Type Severity Reaction Status Date / Time VIET Inhibitors Allergy Unknown Itching Verified 10/14/23 14:31 imipramine (From Tofranil) Allergy Unknown Vomiting Verified 10/14/23 14:31 naproxen (From Naprosyn) AdvReac Unknown PT UNSURE Verified 10/14/23 14:31 OF REACTION ondansetron (From Zofran) AdvReac Unknown Constipatio Verified 10/14/23 14:31 n zolpidem (From Ambien) AdvReac Unknown Other Verified 10/14/23 14:31 codeine AdvReac Other Verified 10/14/23 14:31 Family History Mother Cancer LUNG Sister Alzheimer disease Breast cancer Fibromyalgia Migraine CVA (cerebral vascular accident) Brother Alzheimer disease Cancer STOMACH Myocardial infarction Daughter Suicide Surgical History History of arthroscopic knee surgery History of appendectomy History of carpal tunnel release History of cholecystectomy History of lumbar fusion Social History Smoking Status: Never smoker alcohol intake: never substance use type: does not use Vital Signs Vital Signs Vital Signs: 03/14/24 15:11 03/14/24 15:18 03/14/24 15:26 Temperature 96.7 F L Temperature Source Temporal Pulse Rate 93 94 Pulse Strength Respiratory Rate 19 H 20 H Respiratory Effort Respiratory Depth Respiratory Pattern Blood Pressure 148/68 H 187/121 H Blood Pressure Mean 94 143 Blood Pressure Source Blood Pressure Position Blood Pressure Location Pulse Ox 97 98 Oxygen Delivery Method Room Air Room Air Room Air 03/14/24 15:27 03/14/24 15:38 03/14/24 16:08 Temperature Temperature Source Pulse Rate 96 86 84 Pulse Strength Respiratory Rate 25 H 30 H 19 H Respiratory Effort Respiratory Depth Respiratory Pattern Blood Pressure 179/73 H 178/83 H 162/90 H Blood Pressure Mean 108 114 114 Blood Pressure Source Blood Pressure Position Blood Pressure Location Pulse Ox 98 93 94 Oxygen Delivery Method Room Air Room Air Room Air 03/14/24 16:30 03/14/24 16:39 03/14/24 17:00 Temperature 97.8 F Temperature Source Pulse Rate 80 88 79 Pulse Strength Respiratory Rate 18 18 18 Respiratory Effort Respiratory Depth Respiratory Pattern Blood Pressure 139/120 H 162/90 H 165/79 H Blood Pressure Mean 126 114 107 Blood Pressure Source Blood Pressure Position Blood Pressure Location Pulse Ox 98 98 98 Oxygen Delivery Method Room Air Room Air 03/14/24 17:30 03/14/24 18:00 03/14/24 19:50 Temperature 97.0 F L Temperature Source Temporal Pulse Rate 78 115 H Pulse Strength Respiratory Rate 18 16 Respiratory Effort Normal Non-Labored Respiratory Depth Normal Respiratory Pattern Normal Blood Pressure 173/84 H 147/98 H Blood Pressure Mean 113 114 Blood Pressure Source Monitor Blood Pressure Position Semi-Fowlers Blood Pressure Location Right Arm Pulse Ox 98 99 Oxygen Delivery Method Room Air Room Air Room Air 03/14/24 19:51 03/14/24 22:00 03/14/24 22:40 Temperature 97.4 F L Temperature Source Temporal Pulse Rate 88 Pulse Strength Normal (2+) Respiratory Rate 18 Respiratory Effort Respiratory Depth Respiratory Pattern Blood Pressure 163/86 H Blood Pressure Mean 111 Blood Pressure Source Monitor Blood Pressure Position Semi-Fowlers Blood Pressure Location Right Arm Pulse Ox 99 Oxygen Delivery Method Room Air Room Air 03/15/24 02:00 03/15/24 02:05 03/15/24 06:00 Temperature 97.6 F L 97.4 F L Temperature Source Temporal Temporal Pulse Rate 82 82 Pulse Strength Respiratory Rate 16 16 Respiratory Effort Normal Non-Labored Respiratory Depth Normal Respiratory Pattern Normal Blood Pressure 164/76 H 153/75 H Blood Pressure Mean 105 101 Blood Pressure Source Monitor Monitor Blood Pressure Position Semi-Fowlers Semi-Fowlers Blood Pressure Location Right Arm Right Forearm Pulse Ox 98 97 Oxygen Delivery Method Room Air Room Air Room Air 03/15/24 07:28 03/15/24 08:15 03/15/24 09:33 Temperature 98.1 F Temperature Source Temporal Pulse Rate 88 Pulse Strength Respiratory Rate 18 Respiratory Effort Normal Non-Labored Respiratory Depth Normal Respiratory Pattern Normal Blood Pressure 145/76 H Blood Pressure Mean 99 Blood Pressure Source Monitor Blood Pressure Position Semi-Fowlers Blood Pressure Location Right Arm Pulse Ox 95 99 Oxygen Delivery Method Room Air Room Air Room Air Weight Weight: 65.045 kg Body Mass Index (BMI) 24.6 NIHSS NIHSS Nursing Documentation NIHSS Nursing Documentation: NIHSS: Ischemic Stroke/TIA Start: 03/14/24 18:15 Text: For PCU Patients: NIH and Neuro Check every 4 Status: Active hours, PRN and with change in RN caregiver. Freq: [id number] Protocol: Activity Type Activity Date Activity User E-sign Co-sign Detail Recorded Client Recorded Date Recorded By Document 03/15/24 09:34 desktop 03/15/24 09:38 03/15/24 09:34 NIH Stroke Scale [NIHSS] A score of 0 is normal or asymptomatic . Total possible score is 42. Inpatient: RN or Physician to activate a stroke alert for onset of new stroke symptoms or with NIHSS increase >/= 3 points. Following change in neurological status, NIHSS will be performed per physician order or more frequently PRN. -1a. Level of Consciousness Alert; keenly responsive -1b. LOC Questions Answers one question correctly. -1c. LOC Commands Performs both tasks correctly . -2. Best Gaze Normal -3. Visual No visual loss -4. Facial Palsy Minor paralysis (flattened nasolabial fold , asymmetry on smiling) -5a. Left Arm No drift; arm holds 90 (or 45 ) degrees for full 10 seconds -5b. Right Arm No drift; arm holds 90 (or 45 ) degrees for full 10 seconds -6a. Left Leg No drift; leg holds 30-degree position for full 5 seconds -6b. Right Leg No drift; leg holds 30-degree position for full 5 seconds -7. Limb Ataxia Absent -8. Sensory Normal; no sensory loss -9. Best Language Mild-to- moderate aphasia; -10. Dysarthria Mild-to- moderate dysarthria; -11. Extinction and Inattention No abnormality -Total 4 Query Text:A score of 0 is normal or asymptomatic. Total possible score is 42 . ED: Notify Physician for NIHSS increase by > / = 3 points. Inpatient: RN or Physician to activate a stroke alert for NIHSS increase of > / = 3 points. Coma Scale [Assess] -Eye Opening Spontaneous -Motor Obeys Commands -Verbal Confused [Total] -Coma Scale Total 14 Lab / Micro Data 03/15/24 04:10 03/15/24 04:10 Labs: Laboratory Results - last 24 hr 03/14/24 15:15: WBC 6.1, RBC 3.97 L, Hgb 11.8 L, Hct 36.4 L, MCV 91.7, MCH 29.7, MCHC 32.4, RDW Std Deviation 42.6, RDW Coeff of Fabian 12.8, Plt Count 283, MPV 9.4, Immature Gran % (Auto) 0.300, Neut % (Auto) 64.0, Lymph % (Auto) 23.7, Real % (Auto) 9.7, Eos % (Auto) 1.6, Baso % (Auto) 0.7, Absolute Neuts (auto) 3.9, Absolute Lymphs (auto) 1.45, Nucleated RBC % 0, PT 12.5, INR 0.9, APTT 26.0, Sodium 144, Potassium 3.1 L, Chloride 109 H, Carbon Dioxide 27.0, Anion Gap 8, BUN 13, Creatinine 1.15 H, Estim Creat Clear Calc 34.25, Est GFR (MDRD) Af Amer 59 L, Est GFR (MDRD) Non-Af 48 L, BUN/Creatinine Ratio 11.3, Glucose 162 H, H emoglobin A1c 5.9 H, Calcium 9.0, Phosphorus 2.8, Magnesium 2.0, Troponin I High Sens 9, TSH 1.85 03/15/24 04:10: WBC 6.7, RBC 4.02 L, Hgb 12.0, Hct 36.8 L, MCV 91.5, MCH 29.9, MCHC 32.6, RDW Std Deviation 43.1, RDW Coeff of Fabian 12.8, Plt Count 278, MPV 9.6, Sodium 142, Potassium 3.2 L, Chloride 108 H, Carbon Dioxide 26.0, Anion Gap 8, BUN 9, Creatinine 0.74, Estim Creat Clear Calc 49.24, Est GFR (MDRD) Af Amer 97, Est GFR (MDRD) Non-Af 80, BUN/Creatinine Ratio 12.2, Glucose 124 H, Calcium 8.9, Triglycerides 66, Cholesterol 156, LDL Cholesterol 72, VLDL Cholesterol 13, HDL Cholesterol 71 Rhythm Strip Rhythm Strip: Sinus Rhythm Rate: 86 Ectopy: PAC(s) Imaging Radiology Impression Brain CT 03/14/24 15:08 IMPRESSION: There are no acute findings. Chronic involutional changes of the brain. Electronically Signed: Orville Edwards MD at 15:19 EDT , ADDENDUM: 03/14/24 1545 IMPRESSION: There are no acute findings. Chronic involutional changes of the brain. N.B. : The above Results were Read Back by Orville Edwards MD to Benjamin Espinoza MD, and understanding confirmed on 03/14/2024 15:39:00 (ET). Electronically Signed: Orville Edwards MD at 15:19 EDT , Head/Neck CTA 03/14/24 15:09 IMPRESSION: 1. 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 2. There is mild atherosclerotic plaque formation of the origin of the right internal carotid artery with less than 50% cross sectional diameter stenosis. ALL ABOVE CRITERIA BY NASCET. 3. There is mild atherosclerotic plaque formation of the origin of the left internal carotid artery with less than 50% cross sectional diameter stenosis. ALL ABOVE CRITERIA BY NASCET. 4. There is calcified plaque formation of the right cavernous carotid artery, with a mild stenosis (less than 50%). ALL ABOVE CRITERIA BY NASCET. 5. There is calcified plaque formation of the left cavernous carotid artery, with a mild stenosis (less than 50%). ALL ABOVE CRITERIA BY NASCET. Electronically Signed: Orville Edwards MD at 15:38 EDT , ADDENDUM: 03/14/24 1548 IMPRESSION: 1. 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 2. There is mild atherosclerotic plaque formation of the origin of the right internal carotid artery with less than 50% cross sectional diameter stenosis. ALL ABOVE CRITERIA BY NASCET. 3. There is mild atherosclerotic plaque formation of the origin of the left internal carotid artery with less than 50% cross sectional diameter stenosis. ALL ABOVE CRITERIA BY NASCET. 4. There is calcified plaque formation of the right cavernous carotid artery, with a mild stenosis (less than 50%). ALL ABOVE CRITERIA BY NASCET. 5. There is calcified plaque formation of the left cavernous carotid artery, with a mild stenosis (less than 50%). ALL ABOVE CRITERIA BY NASCET. N.B. : The above Results were Read Back by Orville Edwards MD to Benjamin Espinoza MD, and understanding confirmed on 03/14/2024 15:41:41 (ET). Electronically Signed: Orville Edwards MD at 15:38 EDT , Chest X-Ray 03/14/24 15:50 IMPRESSION: There are no acute findings. Electronically Signed: Orville Edwards MD at 16:21 EDT , Active Medications Active Medications Active Medications: Current Medications Generic Name Dose Route Start Last Admin Trade Name Freq PRN Reason Stop Dose Admin Acetaminophen 650 mg 03/14/24 18:15 Acetaminophen 325 Mg Tablet PO Q6H PRN PRN Pain 1-10 Or Fever>100.7 Anastrozole 1 mg 03/15/24 10:00 03/15/24 08:46 Anastrozole 1 Mg Tablet PO 1 mg DAILY VICTOR HUGO Administration Aspirin 81 mg 03/15/24 08:00 03/15/24 08:46 Aspirin 81 Mg Tab.Chew PO 81 mg BREAKFAST VICTOR HUGO Administration Atorvastatin Calcium 40 mg 03/14/24 22:00 03/14/24 21:57 Atorvastatin Calcium 40 Mg Tablet PO 40 mg QHS VICTOR HUGO Administration Cyclobenzaprine HCl 5 mg 03/14/24 22:00 03/15/24 06:25 Cyclobenzaprine Hcl 5 Mg Tablet PO 5 mg TID VICTOR HUGO Administration Hydralazine HCl 5 mg 03/14/24 18:15 Hydralazine 20 Mg/Ml Vial IV 03/15/24 18:15 Q30M PRN maintain BP parameters with HR <60 Hydroxyzine Pamoate 25 mg 03/14/24 22:00 03/14/24 21:57 Hydroxyzine [place] 25 Mg Capsule PO 25 mg QHS VICTOR HUGO Administration Labetalol HCl 10 - 20 mg 03/14/24 18:15 Labetalol (Compound) 20 Mg/4 Ml Syringe IV 03/15/24 18:15 Q10M PRN PRN maintain BP parameters with HR >/=60 Ondansetron HCl 4 mg 03/14/24 18:15 Ondansetron 4 Mg/2 Ml Vial IV Q8H PRN PRN NAUSEA/VOMITING Sertraline HCl 50 mg 03/15/24 10:00 03/15/24 08:46 Sertraline 50 Mg Tablet PO 50 mg DAILY VICTOR HUGO Administration Sodium Chloride 10 - 40 ml 03/14/24 18:33 0.9% Saline Lock 10 Ml Syringe IV UD PRN SALINE FLUSH Trazodone HCl 100 mg 03/14/24 18:15 Trazodone 100 Mg Tablet PO QHS PRN insomnia
--- NOTE | 2024-03-15 11:50 | CASEMGMT ---
Social Work- SW spoke with pt daughter to discuss discharge plans and preferences. Pt dtr would like pt to return to [place] and will provide transportation. WANDER Hernandez
--- NOTE | 2024-03-15 12:09 | CASEMGMT ---
Patient has a Healthcare Power of Devulcanizer Head (POA) and a Healthcare Living Will. Patient's daughter Una is patient's POA and she brought documents in to [facility]. Eliana INMAN
--- NOTE | 2024-03-15 12:15 | CASEMGMT ---
Discharge Planning Updates faxed to [facility] with note that patient will likely return today. Fax confirmation rec'd. Marquita Melchor DC Planning Asst.
--- NOTE | 2024-03-15 13:50 | DS.PCM_ITS ---
Providers Date of Admission: 03/14/24 Date of Discharge: 03/15/24 Primary Care Physician: SRI Iverson Consultations 03/14/24 18:15 Consult: Tele-Neurology Routine Consulting Provider: [facility] Reason for Consult: Acute Ischemic Stroke/TIA EMERGENT Consult: No MD Notified: Yes Date Notified: 03/14/24 Time Notified: 18:41 Method of Notification: Answering Service Nursing Unit Staff Notify [facility] of Tele-Neurology Consult: Yes Reason For Visit: TIA Diagnosis Discharge Diagnosis (1) Brain TIA: Status: Acute Code(s): G45.9 - Transient cerebral ischemic attack, unspecified (2) Acute hypokalemia: Status: Acute Code(s): E87.6 - Hypokalemia Medications at Discharge Home Medications amlodipine 10 mg tablet 10 mg PO DAILY blood pressure 06/07/16 hydralazine 50 mg tablet 50 mg PO BID blood pressure 06/07/16 losartan 50 mg tablet 100 mg PO DAILY blood pressure 04/30/23 sertraline 50 mg tablet 75 mg PO DAILY mental health 10/14/23 trazodone 100 mg tablet 50 mg PO QHS PRN insomnia 10/14/23 anastrozole 1 mg tablet 1 mg PO DAILY breast cancer #90 TABLETS 12/01/23 cyclobenzaprine 10 mg tablet 10 mg PO TID muscle spasms 03/14/24 hydroxyzine HCl 25 mg tablet 25 mg PO QHS anxiety 03/14/24 aspirin 81 mg chewable tablet 81 mg PO BREAKFAST 90 days #90 tabs 03/15/24 atorvastatin 40 mg tablet 40 mg PO QHS 90 days #90 tabs 03/15/24 Hospital Course Operations None Procedures EKG, Transthoracic echo and - (CT brain without contrast, CTA head/neck, MRI brain without contrast, chest x-ray) Summary of Care Provided Minutes Spent on Discharge: 35 Hospital Course: Patient is a 78-year-old female who presented [facility] ED on 03/14/2024 for strokelike symptoms. Short hospital course as noted below. Patient discharged back to assisted living facility in stable condition on 03/15. 1. TIA ? Teleneurology followed. Symptoms on admit most consistent with a TIA given NIHSS score of 13 on arrival to ED, followed by resolution of symptoms. CT brain unremarkable. CTA head/neck showed a small right ICA aneurysm as noted below, was otherwise unremarkable. MRI brain without contrast was unremarkable. Echo showed EF 65%, mild concentric LV hypertrophy, no PFO. Lipid panel with good lipid control. A1c and TSH normal. Did well working with therapy, no therapy needs on discharge. Started on baby aspirin and increased home atorvastatin to 40 mg daily, will continue these on discharge. Management of small ICA aneurysm as noted below. 2. 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 CTA head/neck showed a focal aneurysmal dilation of the distal right internal carotid artery measuring 7 mm in diameter. Suspected that this is an incidental finding and not related to her current presentation. Per neurology, recommended outpatient neurosurgical evaluation if patient desires. 3. Hypokalemia ? Potassium 3.1 on admit. Magnesium and phosphorus normal. Repleted. Chronic medical conditions: ? Hypertension: On home amlodipine, losartan and hydralazine. Home medications held on admit for permissive hypertension, okay to resume on discharge. ? Depression/anxiety/insomnia: Stable. Continue home sertraline, hydroxyzine at night and trazodone at night as needed. ? History of breast cancer: Follows with Dr. Riley, last office visit in 09/2023. 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 S/p partial mastectomy in 04/2023. Stable. Continue home anastrozole. Can resume zoledronic acid injections every 6 months on discharge. Continue outpatient oncology follow-up. Total clinical time spent by myself addressing the patient's medical issues, reviewing all the data, and collaborating with patient's care team: 35 minutes. Physical Exam Const alert, oriented x3, no apparent distress and average body habitus Constitutional Narrative: Elderly female, sitting up comfortably in bed, answering questions appropriately today, in no acute distress. Improved from admission. General Appearance: cooperative and comfortable HEENT normocephalic, head/scalp atraumatic, hearing grossly normal bilaterally, nasal mucous membranes and turbinates normal and moist oral mucous membranes Eyes PERRL, EOMs intact bilaterally and conjunctivae normal Neck full ROM Chest inspection of chest normal Resp normal respiratory effort, normal air movement, no use of accessory muscles and clear to auscultation bilaterally Cardio regular rate, regular rhythm, no murmurs and peripheral pulses 2+ throughout GI normal to inspection, nondistended, normoactive bowel sounds, soft to palpation, non-tender and non-distended Back/Spine normal ROM Extremity normal to inspection, full ROM and no pedal edema Skin no rashes or lesions noted Neuro moves all extremities and no focal motor deficits Speech: speech normal Motor Exam: strength 5/5 throughout Psych affect normal Weight / BMI Weight Weight: 65.045 kg Body Mass Index (BMI) 24.6 ABG / Lab / Microbiology Data 03/15/24 04:10 03/15/24 04:10 Laboratory: Laboratory Results - last 24 hr 03/14/24 15:15: WBC 6.1, RBC 3.97 L, Hgb 11.8 L, Hct 36.4 L, MCV 91.7, MCH 29.7, MCHC 32.4, RDW Std Deviation 42.6, RDW Coeff of Fabian 12.8, Plt Count 283, MPV 9.4, Immature Gran % (Auto) 0.300, Neut % (Auto) 64.0, Lymph % (Auto) 23.7, Rankin % (Auto) 9.7, Eos % (Auto) 1.6, Baso % (Auto) 0.7, Absolute Neuts (auto) 3.9, Absolute Lymphs (auto) 1.45, Nucleated RBC % 0, PT 12.5, INR 0.9, APTT 26.0, Sodium 144, Potassium 3.1 L, Chloride 109 H, Carbon Dioxide 27.0, Anion Gap 8, BUN 13, Creatinine 1.15 H, Estim Creat Clear Calc 34.25, Est GFR (MDRD) Af Amer 59 L, Est GFR (MDRD) Non-Af 48 L, BUN/Creatinine Ratio 11.3, Glucose 162 H, H emoglobin A1c 5.9 H, Calcium 9.0, Phosphorus 2.8, Magnesium 2.0, Troponin I High Sens 9, TSH 1.85 03/15/24 04:10: WBC 6.7, RBC 4.02 L, Hgb 12.0, Hct 36.8 L, MCV 91.5, MCH 29.9, MCHC 32.6, RDW Std Deviation 43.1, RDW Coeff of Fabian 12.8, Plt Count 278, MPV 9.6, Sodium 142, Potassium 3.2 L, Chloride 108 H, Carbon Dioxide 26.0, Anion Gap 8, BUN 9, Creatinine 0.74, Estim Creat Clear Calc 49.24, Est GFR (MDRD) Af Amer 97, Est GFR (MDRD) Non-Af 80, BUN/Creatinine Ratio 12.2, Glucose 124 H, Calcium 8.9, Triglycerides 66, Cholesterol 156, LDL Cholesterol 72, VLDL Cholesterol 13, HDL Cholesterol 71 Radiography Diagnostic Testing: Radiology Impression Brain CT 03/14/24 15:08 IMPRESSION: There are no acute findings. Chronic involutional changes of the brain. Electronically Signed: Orville Edwards MD at 15:19 EDT , ADDENDUM: 03/14/24 1545 IMPRESSION: There are no acute findings. Chronic involutional changes of the brain. N.B. : The above Results were Read Back by Orville Edwards MD to Benjamin Espinoza MD, and understanding confirmed on 03/14/2024 15:39:00 (ET). Electronically Signed: Orville Edwards MD at 15:19 EDT , Head/Neck CTA 03/14/24 15:09 IMPRESSION: 1. 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 2. There is mild atherosclerotic plaque formation of the origin of the right internal carotid artery with less than 50% cross sectional diameter stenosis. ALL ABOVE CRITERIA BY NASCET. 3. There is mild atherosclerotic plaque formation of the origin of the left internal carotid artery with less than 50% cross sectional diameter stenosis. ALL ABOVE CRITERIA BY NASCET. 4. There is calcified plaque formation of the right cavernous carotid artery, with a mild stenosis (less than 50%). ALL ABOVE CRITERIA BY NASCET. 5. There is calcified plaque formation of the left cavernous carotid artery, with a mild stenosis (less than 50%). ALL ABOVE CRITERIA BY NASCET. Electronically Signed: Orville Edwards MD at 15:38 EDT , ADDENDUM: 03/14/24 1548 IMPRESSION: 1. 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 2. There is mild atherosclerotic plaque formation of the origin of the right internal carotid artery with less than 50% cross sectional diameter stenosis. ALL ABOVE CRITERIA BY NASCET. 3. There is mild atherosclerotic plaque formation of the origin of the left internal carotid artery with less than 50% cross sectional diameter stenosis. ALL ABOVE CRITERIA BY NASCET. 4. There is calcified plaque formation of the right cavernous carotid artery, with a mild stenosis (less than 50%). ALL ABOVE CRITERIA BY NASCET. 5. There is calcified plaque formation of the left cavernous carotid artery, with a mild stenosis (less than 50%). ALL ABOVE CRITERIA BY NASCET. N.B. : The above Results were Read Back by Orville Edwards MD to Benjamin Espinoza MD, and understanding confirmed on 03/14/2024 15:41:41 (ET). Electronically Signed: Orville Edwards MD at 15:38 EDT , Chest X-Ray 03/14/24 15:50 IMPRESSION: There are no acute findings. Electronically Signed: Orville Edwards MD at 16:21 EDT , Brain MRI 03/15/24 10:00 IMPRESSION: No evidence for acute infarct. Moderate chronic involutional and white matter changes. Old left basal ganglia infarct. Electronically Signed: Giulia Rob MD at 10:42 EDT , Meaningful Use Info Meaningful Use Meaningful Use Diagnoses (Choose all that apply): None applicable Ischemic Stroke Statin Dosing Therapy Reference: STATIN DOSE THERAPY REFERENCE: * Patients > 75 years receive moderate or high dose statin therapy. * Patients 75 years or YOUNGER should receive HIGH intensity statin dose unless contraindicated. You will be required to document reason for non-treatment if statin daily dose does not meet guidelines. HIGH DOSE STATIN THERAPY DAILY Atorvastatin > than or = to 40 mg Rosuvastatin > than or = to 20 mg Amlodipine + Atorvastatin > than or = to 2.5/40 mg Ezetimibe + Simvastatin 10/80 mg Simvastatin 80mg Discharge Plan Admission Admit Date/Time: 03/14/24 17:02 Primary Reason for Your Visit: Strokelike symptoms Attending Provider: Alvaro Stephens Primary Care Provider: Ruthann Mcdowell NP Consulting Providers: Darien Morgan; Jose J Wing; Elyse Fierro; Karlene Shaw; Faye Luo; Ibrahima Gardner; Jannette Barahona; Uli Benson; Mikey Shea; Lizandro Hernandez; Tiffanie Valerio; Eitan Pulliam; Christine Lazcano; Ish Miranda; aSrah Watson; Lenny Castillo; Mary Hines; Jem Acosta; Peggy Jovel; Cara Oh Instructions Additional Instructions / Restrictions: Please start taking a baby aspirin daily. Please take the increased dose of atorvastatin daily as noted below. Continue all other home medications as normal. Per neurology recommendations, please discuss with your PCP about obtaining a neurosurgery evaluation for your right ICA aneurysm. Discharge Orders/Prescriptions Prescriptions: New atorvastatin 40 mg Tablet 40 mg PO QHS 90 Days Qty: 90 1RF aspirin 81 mg Tablet,Chewable 81 mg PO BREAKFAST 90 Days Qty: 90 1RF Continued losartan 50 mg tablet 100 mg PO DAILY trazodone 100 mg tablet 50 mg PO QHS PRN (Reason: insomnia) sertraline 50 mg tablet 75 mg PO DAILY amlodipine 10 MG tablet 10 mg PO DAILY hydralazine 50 MG tablet 50 mg PO BID cyclobenzaprine 10 mg tablet 10 mg PO TID hydroxyzine HCl 25 mg tablet 25 mg PO QHS Patient Comments: and q6hr prn for anxiety anastrozole 1 mg tablet 1 mg PO DAILY Qty: 90 3RF Discontinued atorvastatin 10 mg tablet 10 mg PO DAILY Referrals / Follow Up: Ruthann Mcdowell NP, [facility] [Primary Care Provider] - Disposition Disposition (needs filled in before D/C Order can be placed): Home, Self Care Charges/Coding Visit Charges Inpatient E&M: 32820 Disch Hosp >30min
[2024-03-15 14:24] VITALS: BMI 24.6
[2024-03-15 15:45] VITALS: BP 145/62; PULSE 97; RESP 20; TEMP 36.7; O2SAT 99
--- NOTE | 2024-03-15 15:47 | CASEMGMT ---
Social Work- SW faxed discharge paperwork to [facility] and followed up with a phone call to pt nurse at [facility]. Pt bedside nurse advised that pt daughter will transport pt per previous conversation. No additional needs indicated at this time. WANDER Hernandez
--- NOTE | 2024-03-15 15:50 | NURSING ---
Called report to DOLLY Villar at [facility]
== END 2024-03-15 15:15 | disposition intermediate care facility (04) ==
LOC: ED 16:26 → PCU 17:15
PROVIDERS: Admitting Provider Hospitalist; Emergency Provider Emergency Medicine; PCP Nurse Practitioner Primary Care; Visit Provider Hospitalist
DX: G45.9 Transient cerebral ischemic attack, unspecified (principal); I10 Essential (primary) hypertension; R47.81 Slurred speech; Z17.0 Estrogen receptor positive status [ER+]; R41.89 Other symptoms and signs involving cognitive functions and awareness; F41.0 Panic disorder [episodic paroxysmal anxiety]; R29.898 Other symptoms and signs involving the musculoskeletal system; E87.6 Hypokalemia; R47.01 Aphasia; I67.1 Cerebral aneurysm, nonruptured; E78.00 Pure hypercholesterolemia, unspecified; K21.9 Gastro-esophageal reflux disease without esophagitis; Z79.899 Other long term (current) drug therapy; F32.A Depression, unspecified; G47.00 Insomnia, unspecified
CPT/HCPCS: 99285; 70450; 70496; 70498; 70551; 71045; 80048; 80061; 83036; 83735; 84100; 84443; 84484; 85025; 85027; 85610; 85730; 92610; 93005; 93306; 94762; 97162; 97166; 99221; 99252; Q9967; A4216; G0378; G0463

== ENCOUNTER 2024-03-17 10:41 | Inpatient (IN) | payer MEDICARE, OTHER, SELFPAY ==
[2024-03-17] VITALS (34 sets, daily range): BP systolic 132–175; BP diastolic 53–101; PULSE 75–95; RESP 12–29; TEMP 35.9–36.6; O2SAT 93–100; BMI 23.0; BMI 23.5
--- NOTE | 2024-03-17 10:45 | CT_ITS ---
STUDY: CT HEAD STROKE PROTOCOL W/O CONTRAST INJECTION REASON FOR EXAM: Female, 78 years old. Neuro deficit, acute, stroke suspected RADIATION DOSAGE (If Supplied By Facility): CTDIvol = ( 44.99 ) mGy, DLP = ( a 12.98 ) mGycm TECHNIQUE: Transaxial CT imaging of the brain was performed without administration of intravenous contrast material. Individualized dose optimization techniques were used for this CT. COMPARISON: Comparison is made with prior study dated March 14, 2024. FINDINGS: Normal soft tissue structures. Normal calvarium. There is mild cerebral atrophy with widening of the extra-axial spaces and ventricular dilatation. There are areas of decreased attenuation within the white matter tracts of the supratentorial brain, consistent with microvascular disease changes. Old lacunar infarct in the body of the left caudate nucleus. Normal brainstem. There is mild cerebellar atrophy. There is no intracranial hemorrhage. There are no findings of an acute ischemic infarction. Atherosclerotic calcifications of the vertebral arteries and cavernous portions of the internal carotid arteries bilaterally. Normal visualized paranasal sinuses. ASPECT score: 10 CT/STROKE Brain/Head without Cont IMPRESSION: Chronic involutional changes of the brain. N.B. : The above Results were Read Back by Sheldon Gibbons MD to Dr Rosalio DO, and understanding confirmed on 03/17/2024 11:00:25 (ET). Electronically Signed: Sheldon Gibbons MD at 11:01 EDT ,
--- NOTE | 2024-03-17 10:45 | EKG12_ITS ---
Test Reason : Blood Pressure : / mmHG Vent. Rate : 091 BPM Atrial Rate : 091 BPM P-R Int : 168 ms QRS Dur : 084 ms QT Int : 372 ms P-R-T Axes : 012 003 037 degrees QTc Int : 457 ms Normal sinus rhythm with sinus arrhythmia Normal ECG Confirmed by Rodney Benton ([id number]), film or videotape editor CHERI GREEN ([id number]) on 03/18/2024 11:17:38 AM Referred By: Confirmed By:Rodney Benton
--- NOTE | 2024-03-17 10:45 | RAD_ITS ---
STUDY: X-RAY CHEST REASON FOR EXAM: Female, 78 years old. Neuro deficit, acute, stroke suspected TECHNIQUE: Single AP portable view of the chest. COMPARISON: Comparison is made with prior study dated March 14, 2024. FINDINGS: EKG electrodes are seen. Surgical clips are seen in the left axilla. The lungs are clear and expanded. There is no demonstrated pleural abnormality. Normal size heart. Normal mediastinum and fredi. Normal visualized pulmonary arteries. There is atherosclerotic calcification of the aortic arch with tortuosity. There are diffuse degenerative changes of the visualized thoracic spine. Normal visualized ribs, clavicles, and shoulders. There is no demonstrated abnormality of the visualized soft tissue structures of the upper abdomen. RAD/Chest 1 View IMPRESSION: No acute abnormality is seen. Stable examination. Electronically Signed: Sheldon Gibbons MD at 12:19 EDT ,
--- NOTE | 2024-03-17 10:46 | CT_ITS ---
STUDY: CTA HEAD AND NECK WITH CONTRAST REASON FOR EXAM: Female, 78 years old. Neuro deficit, acute, stroke suspected RADIATION DOSAGE (If Supplied By Facility): CTDIvol = ( 20.79 ) mGy, DLP = ( 619.39 ) mGycm TECHNIQUE: CT angiography was performed with a multi-detector CT scanner. Data acquisition was obtained from the skull base through the vertex following intravenous administration of IV 100mL [id number]. MIP images were reconstructed from the axial data set. Post-processing of the angiographic images was performed, with multiplanar reformation and 3D reconstruction. Individualized dose optimization techniques were used for this CT. COMPARISON: Comparison is made with prior study dated March 14, 2024. FINDINGS: Normal bilateral petrous carotid arteries. There is calcified plaque formation of the right cavernous carotid artery, with a mild stenosis (less than 50%). There is calcified plaque formation of the left cavernous carotid artery, with a mild stenosis (less than 50%). Normal right A1 segments of the anterior cerebral artery. Normal left A1 segments of the anterior cerebral artery. Normal intact anterior communicating artery (ACOM). Normal bilateral A2 segments of the anterior cerebral arteries. Normal right M1 and M2 segments of the middle cerebral arteries, with a normal M1 bifurcation. Normal left M1 and M2 segments of the middle cerebral arteries, with a normal M1 bifurcation. Normal right posterior communicating artery (PCOM). Normal left posterior communicating artery (PCOM). Normal bilateral vertebral arteries. Normal basilar artery with a normal basilar bifurcation. The visualized bilateral superior cerebellar (SCA) arteries are normal. Normal bilateral P1, P2 and visualized P3 segments of the posterior cerebral arteries. There is no demonstrated aneurysm of the paimiut of [place]. AORTIC ARCH: There is atherosclerotic calcific plaque formation of the aortic arch and great vessels arising from the aortic arch, without a hemodynamically significant stenosis. There is a normal origin of the brachiocephalic, left common carotid, and left subclavian arteries. RIGHT CAROTID ARTERIES: Normal right common carotid artery (CCA). Normal right common carotid bulb. There is mild atherosclerotic plaque formation of the origin of the right internal carotid artery with less than 50% cross sectional diameter stenosis. Normal visualized cervical portion of the right internal carotid artery. Stable 7 mm focal aneurysmal dilatation of the distal portion of the right internal carotid artery. Normal origin of the right external carotid artery (ECA). LEFT CAROTID ARTERIES: Normal left common carotid artery (CCA). Normal left common carotid bulb. There is mild atherosclerotic plaque formation of the origin of the left internal carotid artery with less than 50% cross sectional diameter stenosis. Normal visualized cervical portion of the left internal carotid artery. Normal origin of the left external carotid artery (ECA). VERTEBRAL ARTERIES: Normal bilateral vertebral arteries. CT/STROKE CTA Head AND Neck W/Con IMPRESSION: Mild degree of plaque formation at the origin of the right and left internal carotid arteries. There has been no change. N.B. : The above Results were Read Back by Sheldon Gibbons MD to Nabeel Santamaria and understanding confirmed on 03/17/2024 11:09:17 (ET). Electronically Signed: Sheldon Gibbons MD at 11:10 EDT ,
--- NOTE | 2024-03-17 10:47 | ED.VIS.STROK ---
HPI History of Present Illness Chief Complaint: Stroke Alert Narrative Narrative: 78-year-old female found in the basement at 10:25 AM with decreased mental status, expressive aphasia and right-sided weakness. Stroke team was called to feel patient was met at the emergency room bay doors on arrival. She is not able to follow commands. She is not able to answer questions. She is cannot see anything. Her daughter was here and states that she did not have any residual deficits when she was in the hospital a few days ago with a TIA. The patient then heard her daughter and started yelling her name. ] [facility] Medical History Encounter for education Breast cancer, left breast Seizure disorder Stroke Vaginal itching Ulcerative colitis Sleep apnea Hypercholesteremia MVP (mitral valve prolapse) Low back pain Left hip pain Insomnia IBS (irritable bowel syndrome) Hypokalemia HTN (hypertension) Panic attacks GERD (gastroesophageal reflux disease) Expressive aphasia Eczema Dermatitis Depression Dementia Chronic osteoarthritis Chronic neck pain Chest wall pain Blepharitis of right eye Back pain Atrophic vaginitis Arthritis Anxiety Abdominal pain Amnesia Home Medications ?Medication ?Instructions ?Recorded ?Last Taken ?Type amlodipine 10 mg tablet 10 mg PO DAILY BLOOD PRESSURE 06/07/16 03/17/24 History hydralazine 50 mg tablet 50 mg PO BID BLOOD PRESSURE 06/07/16 03/17/24 History sertraline 50 mg tablet 50 mg PO DAILY DEPRESSION 10/14/23 03/17/24 History anastrozole 1 mg tablet 1 mg PO DAILY BREAST CANCER #90 12/01/23 03/17/24 Rx TABLETS cyclobenzaprine 10 mg tablet 10 mg PO TID PRN MUSCLE SPASMS 03/14/24 03/14/24 History aspirin 81 mg chewable tablet 81 mg PO BREAKFAST 90 days #90 tabs 03/15/24 Unknown Rx atorvastatin 40 mg tablet 40 mg PO QHS CHOLESTEROL 90 days 03/15/24 03/16/24 Rx #90 tabs hydroxyzine pamoate 25 mg capsule 25 mg PO Q6H PRN ANXIETY 03/17/24 Unknown History hydroxyzine pamoate 25 mg capsule 25 mg PO QPM ANXIETY 03/17/24 03/16/24 History loperamide 2 mg capsule 2 mg PO Q4H PRN LOOSE STOOL 03/17/24 Unknown History losartan 100 mg tablet 100 mg PO DAILY BLOOD PRESSURE 03/17/24 03/17/24 History sertraline 25 mg tablet 25 mg PO DAILY DEPRESSION 03/17/24 03/17/24 History trazodone 50 mg tablet 50 mg PO QHS DEPRESSION 03/17/24 03/16/24 History Allergy/AdvReac Type Severity Reaction Status Date / Time VIET Inhibitors Allergy Unknown Itching Verified 10/14/23 14:31 imipramine (From Tofranil) Allergy Unknown Vomiting Verified 10/14/23 14:31 naproxen (From Naprosyn) AdvReac Unknown PT UNSURE Verified 10/14/23 14:31 OF REACTION ondansetron (From Zofran) AdvReac Unknown Constipatio Verified 10/14/23 14:31 n zolpidem (From Ambien) AdvReac Unknown Other Verified 10/14/23 14:31 codeine AdvReac Other Verified 10/14/23 14:31 Family History Mother Cancer LUNG Sister Alzheimer disease Breast cancer Fibromyalgia Migraine CVA (cerebral vascular accident) Brother Alzheimer disease Cancer STOMACH Myocardial infarction Daughter Suicide Surgical History History of arthroscopic knee surgery History of appendectomy History of carpal tunnel release History of cholecystectomy History of lumbar fusion Social History Smoking Status: Never smoker alcohol intake: never substance use type: does not use ROS ROS ED Review of Systems ROS Unobtainable: due to mental condition and due to mental status EXAM Physical Exam Const Vital Signs: 03/17/24 10:41 03/17/24 10:45 03/17/24 10:45 Temperature 97.7 F L Temperature Source Temporal Pulse Rate 90 95 Respiratory Rate 16 29 H Blood Pressure 144/76 H 175/82 H Blood Pressure Mean 98 113 Blood Pressure Source Blood Pressure Position Blood Pressure Location Pulse Ox 98 99 Oxygen Delivery Method Room Air Room Air Room Air 03/17/24 11:00 03/17/24 11:13 03/17/24 11:13 Temperature Temperature Source Pulse Rate 95 94 92 Respiratory Rate 17 23 H 25 H Blood Pressure 165/87 H 148/72 H 148/72 H Blood Pressure Mean 113 97 97 Blood Pressure Source Monitor Blood Pressure Position Semi-Fowlers Blood Pressure Location Left Arm Pulse Ox 98 96 97 Oxygen Delivery Method Room Air Room Air Room Air 03/17/24 11:28 03/17/24 11:37 03/17/24 11:43 Temperature Temperature Source Pulse Rate 95 92 Respiratory Rate 22 H 25 H Blood Pressure 149/76 H 148/72 H 153/71 H Blood Pressure Mean 100 98 Blood Pressure Source Monitor Monitor Blood Pressure Position Semi-Fowlers Semi-Fowlers Blood Pressure Location Right Arm Left Arm Pulse Ox 99 98 Oxygen Delivery Method Room Air Room Air 03/17/24 11:52 03/17/24 11:58 03/17/24 12:09 Temperature 96.7 F L Temperature Source Pulse Rate 90 90 90 Respiratory Rate 16 22 H 22 H Blood Pressure 144/76 H 158/74 H 158/74 H Blood Pressure Mean 98 102 102 Blood Pressure Source Monitor Blood Pressure Position Semi-Fowlers Blood Pressure Location Left Arm Pulse Ox 98 98 98 Oxygen Delivery Method Room Air Room Air 03/17/24 12:13 03/17/24 12:28 03/17/24 12:43 Temperature Temperature Source Pulse Rate 82 79 82 Respiratory Rate 23 H 26 H 22 H Blood Pressure 161/72 H 155/78 H 153/75 H Blood Pressure Mean 101 103 101 Blood Pressure Source Monitor Monitor Monitor Blood Pressure Position Semi-Fowlers Semi-Fowlers Semi-Fowlers Blood Pressure Location Left Arm Left Arm Left Arm Pulse Ox 95 98 98 Oxygen Delivery Method Room Air Room Air Room Air Positive well nourished General Appearance ED: NAD HEENT Reports moist mucous membranes and dry mucous membranes Mouth ED: Yes dry mucous membranes Mouth: dry mucous membranes Eyes PERRL Resp normal respiratory effort and clear to auscultation bilaterally GI normal to inspection, nondistended, normoactive bowel sounds Neuro oriented x3 and CN's II-XII intact bilaterally Sensorium / Orientation: alert Psych mental status grossly normal NIHSS NIHSS Initial: 1a Level of Consciousness: 0 1b LOC Questions (Score 2 if aphasic/stupor): 2 1c LOC Commands (Only score 1st attempt): 2 2 Best Gaze (If aphasic, use reflexive mvmts.): 2 3 Visual: 3 4 Facial Palsy: 0 5 Motor Arm Right (UN = amputation/fusion): 4 5 Motor Arm Left: 4 6 Motor Leg Right: 4 6 Motor Leg Left: 4 7 Limb ataxia (Only + if out of proportion): 0 8 Sensory (Aphasia/stupor=0 or 1, coma=2): 1 9 Best Language: 1 10 Dysarthria (mute, coma=2, intubated=UN): 1 11 Extinction and Inattention (only scored if +): 0 Total Score: 28 MDM MDM MDM Narrative Medical decision making narrative: Patient was taken to CT. CT brain interpreted at 11 AM and spoke with the radiologist as negative. CTA also negative. Initial stroke scale score was 28. Reevaluation of the patient has not answered to his 6. She has improved from arrival. 11:13 AM stroke neurologist request we give TNK. This is ordered. This was ordered on 1113. There was an error with the pharmacy and there was a delay. They called back at 1128 stating that they could not see the order for tenecteplase. I was not in the room of this occurred however nursing tells me just before she was good to get tenecteplase she started to have a right-sided facial droop and right arm and leg weakness. This was worked out through nursing. CBC shows normal white blood cell count 7.1. Hemoglobin 12.6. Platelets are 291. Creatinine slightly elevated today patient was started on IV fluids. High-sensitivity troponin is 7. EKG interpreted by myself shows a sinus rhythm at 91 bpm without sign of ischemic change. Chest x-ray my interpretation shows no acute cardiopulmonary process. Radiologist interprets this and agrees. Patient will be admitted to the ICU given that she got tenecteplase. She has had some waxing and waning of symptoms currently has some word finding issues and expressive aphasia but her last NIH was 6. Impression: 1. CVA 2. MICHELLE Lab Data Attestation: I reviewed the patient's lab results. Labs: Laboratory Results - last 24 hr 03/17/24 10:45 WBC 7.1 RBC 4.26 Hgb 12.6 Hct 38.8 MCV 91.1 MCH 29.6 MCHC 32.5 RDW Std Deviation 42.2 RDW Coeff of Fabian 12.8 Plt Count 291 MPV 9.4 Immature Gran % (Auto) 0.300 Neut % (Auto) 71.0 H Lymph % (Auto) 14.9 L [place] % (Auto) 11.3 H Eos % (Auto) 1.8 Baso % (Auto) 0.7 Absolute Neuts (auto) 5.0 Absolute Lymphs (auto) 1.06 Nucleated RBC % 0 PT 12.1 INR 0.9 APTT 25.3 Sodium 140 Potassium 3.4 L Chloride 108 H Carbon Dioxide 26.0 Anion Gap 6 BUN 22 H Creatinine 1.74 H Estim Creat Clear Calc 22.64 Est GFR (MDRD) Af Amer 36 L Est GFR (MDRD) Non-Af 30 L BUN/Creatinine Ratio 12.6 Glucose 123 H Calcium 9.4 Troponin I High Sens 7 Radiography Diagnostic Testing: Clinical Impression(s) from Imaging Studies Brain CT 03/17/24 10:45 IMPRESSION: Chronic involutional changes of the brain. N.B. : The above Results were Read Back by Sheldon Gibbons MD to Dr Rosalio DO, and understanding confirmed on 03/17/2024 11:00:25 (ET). Electronically Signed: Sheldon Gibbons MD at 11:01 EDT , ADDENDUM: 03/17/24 1108 IMPRESSION: Chronic involutional changes of the brain. N.B. : The above Results were Read Back by Sheldon Gibbons MD to Dr Rosalio DO, and understanding confirmed on 03/17/2024 11:00:25 (ET). Electronically Signed: Sheldon Gibbons MD at 11:01 EDT , Chest X-Ray 03/17/24 10:45 IMPRESSION: No acute abnormality is seen. Stable examination. Electronically Signed: Sheldon Gibbons MD at 12:19 EDT , Head/Neck CTA 03/17/24 10:46 IMPRESSION: Mild degree of plaque formation at the origin of the right and left internal carotid arteries. There has been no change. N.B. : The above Results were Read Back by Sheldon Gibbons MD to Nabeel Santamaria and understanding confirmed on 03/17/2024 11:09:17 (ET). Electronically Signed: Sheldon Gibbons MD at 11:10 EDT , Discharge Plan Disposition Disposition: Acute Care Hospital [facility] Discharge Date/Time: 03/17/24 13:30
--- NOTE | 2024-03-17 10:56 | ED.RN ---
1037 CALLED STROKE ALERT PRIOR TO ARRIVAL
[2024-03-17 10:59] LABS: Absolute Lymphocyte Count 1.06 X10^3/uL (0.83-4.51); Basophil# 0.05 X10^3/uL; Basophil% 0.7 % (0-1); Eosinophil# 0.13 X10^3/uL; Eosinophils% 1.8 % (0-5); Hematocrit 38.8 % (37-47); Hemoglobin 12.6 g/dL (12.0-15.0); Lymphocyte # 1.06 X10^3/ul (0.83-4.51); Lymphocyte % 14.9 % (19-41); Mean Corp Hgb Conc 32.5 g/dL (32-36); Mean Corpuscular Hgb 29.6 pg (27.0-32.0); Mean Corpuscular Volume 91.1 fL (81-99); Mean Platelet Vol. 9.4 fl (6.2-12.0); Monocyte% 11.3 % (0-10); NRBC Flagged by Analyzer 0 % (0-5); Neutrophil # 5.04 X10^3/uL (2.7-7.7); Platelet Count 291 K/mm3 (150-450); RBC Distribution Width CV 12.8 % (11.6-14.6); RBC Distribution Width SD 42.2 fl (35.1-43.9); Red Blood Count 4.26 M/mm3 (4.2-5.4); White Blood Count 7.1 K/mm3 (4.4-11.0)
[2024-03-17 11:16] LABS: International Normalized Ratio 0.9; Prothrombin Time (Protime)PT. 12.1 SECONDS (11.7-14.9)
[2024-03-17 11:17] LABS: Partial Thromboplast Time 25.3 Seconds (24.1-36.2)
[2024-03-17 11:22] LABS: Anion Gap 6 (5-15); BUN 22 mg/dL (7-18); BUN/Creat Ratio 12.6 RATIO (10-20); Calcium,Total 9.4 mg/dL (8.5-10.1); Chloride 108 mmol/L (98-107); Creatinine, Serum 1.74 mg/dL (0.55-1.02); EST Glomerular Filtration Rate 30 mL/min (>60); Est Glom Filt Rate - Afr Amer 36 mL/min (>60); Estimated Creatinine Clearance 22.64 ml/min; Glucose 123 mg/dL (74-106); Potassium 3.4 mmol/L (3.5-5.1); Sodium Level 140 mmol/L (136-145); Troponin-I HS 7 pg/mL (3.0-54.0)
[2024-03-17] MEDS: 0.9% Saline Lock 10 ML Syringe IV ×2 (11:36→11:37)
[2024-03-17] MEDS: TENECTEPLASE 2203.2 MG IV (11:37)
--- NOTE | 2024-03-17 12:51 | HP.PCM.HOS_ITS ---
HPI - General General Date of Admission: 03/17/24 Date of Service: 03/17/24 Chief Complaint: Strokelike symptoms HPI Narrative VJII AMANDA, is a 78 F who presented to [facility] ED on 03/17/2024 as a stroke alert. Patient notably was hospitalized here from 03/14- 03/15 for essentially the same presentation. I followed her during that hospitalization. She lives at [facility] and was found by a family friend on the afternoon of 03/14 to have worsening confusion and right-sided facial droop concerning for stroke. The symptoms remained when she got to the ED and her NIHSS score was high. However, after coming back from her emergent CT scan her symptoms had essentially resolved. Her stroke workup was negative during that hospitalization and it was suspected that she had a TIA. She was discharged back to her assisted living facility in stable condition. Per ED physician today, patient was apparently found in the basement of her assisted living facility at 10:25 AM with decreased mental status, aggressive aphasia and right-sided weakness with facial droop. She continued to have the symptoms on arrival to the ED. CT brain without contrast and CTA head/neck appeared stable from previous scans from 3 days ago. Evaluated by teleneurology in the ED and had very elevated NIHSS score. Given high concern for active stroke and known last well time, tenecteplase was administered in the ED at 11:13 AM. Hospitalist was then contacted for admission and patient was admitted up to the ICU for further management. I saw patient in the ICU shortly after she arrived over from the ED. Patient was sitting up in bed at that time and was alert. Nursing staff was doing NIH testing on her when I arrived. They noted that her scores were difficult to calculate given that the patient had difficulty following instructions when performing exam. She was making appropriate eye contact with me and attempting to answer questions appropriately, but most of her answers were nonsensical. Notably, she did have the same issue when I saw her in the ED on 03/14. She continued to have mild issues on 03/15 but was much improved from admission. Patient started noted during that hospitalization that patient was previously living at home alone and today recently moved her to [place] about 2 months ago for worsening functional status at home and signs of cognitive impairment. Patient appears mildly agitated on talking to her today but she denied any acute pain or discomfort. No other acute concerns at this time. [facility] Medical History Encounter for education Breast cancer, left breast Seizure disorder Stroke Vaginal itching Ulcerative colitis Sleep apnea Hypercholesteremia MVP (mitral valve prolapse) Low back pain Left hip pain Insomnia IBS (irritable bowel syndrome) Hypokalemia HTN (hypertension) Panic attacks GERD (gastroesophageal reflux disease) Expressive aphasia Eczema Dermatitis Depression Dementia Chronic osteoarthritis Chronic neck pain Chest wall pain Blepharitis of right eye Back pain Atrophic vaginitis Arthritis Anxiety Abdominal pain Amnesia Home Medications ?Medication ?Instructions ?Recorded ?Last Taken ?Type amlodipine 10 mg tablet 10 mg PO DAILY BLOOD PRESSURE 06/07/16 03/17/24 History hydralazine 50 mg tablet 50 mg PO BID BLOOD PRESSURE 06/07/16 03/17/24 History sertraline 50 mg tablet 50 mg PO DAILY DEPRESSION 10/14/23 03/17/24 History anastrozole 1 mg tablet 1 mg PO DAILY BREAST CANCER #90 12/01/23 03/17/24 Rx TABLETS cyclobenzaprine 10 mg tablet 10 mg PO TID PRN MUSCLE SPASMS 03/14/24 03/14/24 History aspirin 81 mg chewable tablet 81 mg PO BREAKFAST 90 days #90 tabs 03/15/24 Unknown Rx atorvastatin 40 mg tablet 40 mg PO QHS CHOLESTEROL 90 days 03/15/24 03/16/24 Rx #90 tabs hydroxyzine pamoate 25 mg capsule 25 mg PO Q6H PRN ANXIETY 03/17/24 Unknown History hydroxyzine pamoate 25 mg capsule 25 mg PO QPM ANXIETY 03/17/24 03/16/24 History loperamide 2 mg capsule 2 mg PO Q4H PRN LOOSE STOOL 03/17/24 Unknown History losartan 100 mg tablet 100 mg PO DAILY BLOOD PRESSURE 03/17/24 03/17/24 History sertraline 25 mg tablet 25 mg PO DAILY DEPRESSION 03/17/24 03/17/24 History trazodone 50 mg tablet 50 mg PO QHS DEPRESSION 03/17/24 03/16/24 History Allergy/AdvReac Type Severity Reaction Status Date / Time VIET Inhibitors Allergy Unknown Itching Verified 10/14/23 14:31 imipramine (From Tofranil) Allergy Unknown Vomiting Verified 10/14/23 14:31 naproxen (From Naprosyn) AdvReac Unknown PT UNSURE Verified 10/14/23 14:31 OF REACTION ondansetron (From Zofran) AdvReac Unknown Constipatio Verified 10/14/23 14:31 n zolpidem (From Ambien) AdvReac Unknown Other Verified 10/14/23 14:31 codeine AdvReac Other Verified 10/14/23 14:31 Family History Mother Cancer LUNG Sister Alzheimer disease Breast cancer Fibromyalgia Migraine CVA (cerebral vascular accident) Brother Alzheimer disease Cancer STOMACH Myocardial infarction Daughter Suicide Surgical History History of arthroscopic knee surgery History of appendectomy History of carpal tunnel release History of cholecystectomy History of lumbar fusion Social History Smoking Status: Never smoker alcohol intake: never substance use type: does not use ROS Constitutional Constitutional: Denies chills, fatigue, fever(s) or weakness Eyes Eyes: Denies change in vision Cardiovascular Cardiovascular: Denies chest pain Respiratory/Chest Respiratory/Chest: Denies shortness of breath at rest Gastrointestinal Gastrointestinal: Denies abdominal pain Neurologic Neurologic: Reports confusion; Denies dizziness, focal weakness or headache(s) Psychiatric Psychiatric: Reports anxiety Vital Signs Vital Signs Vital Signs: 03/17/24 10:41 03/17/24 10:45 03/17/24 10:45 Temperature 97.7 F L Temperature Source Temporal Pulse Rate 90 95 Respiratory Rate 16 29 H Blood Pressure 144/76 H 175/82 H Blood Pressure Mean 98 113 Blood Pressure Source Blood Pressure Position Blood Pressure Location Pulse Ox 98 99 Oxygen Delivery Method Room Air Room Air Room Air 03/17/24 11:00 03/17/24 11:13 03/17/24 11:13 Temperature Temperature Source Pulse Rate 95 94 92 Respiratory Rate 17 23 H 25 H Blood Pressure 165/87 H 148/72 H 148/72 H Blood Pressure Mean 113 97 97 Blood Pressure Source Monitor Blood Pressure Position Semi-Fowlers Blood Pressure Location Left Arm Pulse Ox 98 96 97 Oxygen Delivery Method Room Air Room Air Room Air 03/17/24 11:28 03/17/24 11:37 03/17/24 11:43 Temperature Temperature Source Pulse Rate 95 92 Respiratory Rate 22 H 25 H Blood Pressure 149/76 H 148/72 H 153/71 H Blood Pressure Mean 100 98 Blood Pressure Source Monitor Monitor Blood Pressure Position Semi-Fowlers Semi-Fowlers Blood Pressure Location Right Arm Left Arm Pulse Ox 99 98 Oxygen Delivery Method Room Air Room Air 03/17/24 11:52 03/17/24 11:58 03/17/24 12:09 Temperature 96.7 F L Temperature Source Pulse Rate 90 90 90 Respiratory Rate 16 22 H 22 H Blood Pressure 144/76 H 158/74 H 158/74 H Blood Pressure Mean 98 102 102 Blood Pressure Source Monitor Blood Pressure Position Semi-Fowlers Blood Pressure Location Left Arm Pulse Ox 98 98 98 Oxygen Delivery Method Room Air Room Air Weight Weight: 61.235 kg Body Mass Index (BMI) 23.0 Physical Exam Const alert, oriented x3 and average body habitus Constitutional Narrative: Elderly female, mildly agitated appearing, sitting up comfortably in bed, making appropriate eye contact but answering questions with nonsensical responses, in no acute distress. General Appearance: cooperative and comfortable HEENT normocephalic, head/scalp atraumatic, hearing grossly normal bilaterally and nasal mucous membranes and turbinates normal Eyes PERRL, EOMs intact bilaterally and conjunctivae normal Neck full ROM Chest inspection of chest normal Resp normal respiratory effort, normal air movement, no use of accessory muscles and clear to auscultation bilaterally Cardio regular rate, regular rhythm, no murmurs and peripheral pulses 2+ throughout GI normal to inspection, nondistended, normoactive bowel sounds, soft to palpation, non-tender and non-distended Back/Spine normal ROM Extremity normal to inspection, full ROM and no pedal edema Skin no rashes or lesions noted Neuro moves all extremities and no focal motor deficits Neuro Narrative: Alert and making appropriate eye contact but not answering questions with sensible responses. Moving arms and legs spontaneously. No facial droop noted. No overt vision changes noted. Psych Mood & Affect: anxious Results Lab / Micro Data 03/17/24 10:45 03/17/24 10:45 Labs: Laboratory Results - last 24 hr 03/17/24 10:45: WBC 7.1, RBC 4.26, Hgb 12.6, Hct 38.8, MCV 91.1, MCH 29.6, MCHC 32.5, RDW Std Deviation 42.2, RDW Coeff of Fabian 12.8, Plt Count 291, MPV 9.4, Immature Gran % (Auto) 0.300, Neut % (Auto) 71.0 H, Lymph % (Auto) 14.9 L, [place] % (Auto) 11.3 H, Eos % (Auto) 1.8, Baso % (Auto) 0.7, Absolute Neuts (auto) 5.0, Absolute Lymphs (auto) 1.06, Nucleated RBC % 0, PT 12.1, INR 0.9, APTT 25.3, Sodium 140, Potassium 3.4 L, Chloride 108 H, Carbon Dioxide 26.0, Anion Gap 6, B UN 22 H, Creatinine 1.74 H, Estim Creat Clear Calc 22.64, Est GFR (MDRD) Af Amer 36 L, Est GFR (MDRD) Non-Af 30 L, BUN/Creatinine Ratio 12.6, Glucose 123 H, Calcium 9.4, Troponin I High Sens 7 Imaging Radiology Impression Brain CT 03/17/24 10:45 IMPRESSION: Chronic involutional changes of the brain. N.B. : The above Results were Read Back by Sheldon Gibbons MD to Dr Rosalio DO, and understanding confirmed on 03/17/2024 11:00:25 (ET). Electronically Signed: Sheldon Gibbons MD at 11:01 EDT , ADDENDUM: 03/17/24 1108 IMPRESSION: Chronic involutional changes of the brain. N.B. : The above Results were Read Back by Sheldon Gibbons MD to Dr Rosalio DO, and understanding confirmed on 03/17/2024 11:00:25 (ET). Electronically Signed: Sheldon Gibbons MD at 11:01 EDT , Chest X-Ray 03/17/24 10:45 IMPRESSION: No acute abnormality is seen. Stable examination. Electronically Signed: Sheldon Gibbons MD at 12:19 EDT , Head/Neck CTA 03/17/24 10:46 IMPRESSION: Mild degree of plaque formation at the origin of the right and left internal carotid arteries. There has been no change. N.B. : The above Results were Read Back by Sheldon Gibbons MD to Nabeel Santamaria and understanding confirmed on 03/17/2024 11:09:17 (ET). Electronically Signed: Sheldon Gibbons MD at 11:10 EDT , Assessment & Plan Assessment/Plan (1) Acute CVA (cerebrovascular accident): (2) MICHELLE (acute kidney injury): PLAN: Plan Patient is a 78-year-old female who presented [facility] ED on 03/17/2024 as a stroke alert. 1. Concern for CVA s/p TNK administration; recent hospitalization for TIA ? Admit under inpatient status to ICU. Tube Splicer and teleneurology consulted. Presented with altered mentation, expressive aphasia, right-sided weakness and reported right facial droop. Notably these symptoms were about identical to her symptoms on presentation for her TIA on 03/14. Stroke workup included MRI brain without contrast, echo, labs and all were unremarkable. Patient showed improvement and was discharged back to assisted living facility on 03/15. CT head imaging on this admission with similar findings to previous. However, given high NIHSS score decision was made in the ED to move forward with TNK administration. TNK was given at 11:13 AM on 03/17. Orders placed per stroke with TNK administration order set on admit. Bedrest for 24 hours. Will plan for MRI brain without contrast around 12 PM tomorrow. Holding home aspirin, continue home statin. PT/OT/case management consulted. 2. 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 Noted on CTA head/neck during previous hospitalization, which showed a focal aneurysmal dilation of the distal right internal carotid artery measuring 7 mm in diameter. Was suspected that this was an incidental finding and not related to her TIA presentation. CTA head/neck on this admission with the same finding. No inpatient needs; per neurology from prior admission, can follow-up outpatient for neurosurgical evaluation if patient desires. 3. MICHELLE ? Creatinine 1.74 on admit, baseline creatinine appears to be around 0.7. Creatinine notably was 0.74 on 03/15 (day of previous discharge). Suspect prerenal etiology from poor p.o. intake. IV fluids given on admission. Anderson catheter placed on admit as patient is bedrest after TNK administration. Monitor daily BMP and urine output. 4. Mild hypokalemia ? Potassium 3.4 on admit. Notably presented with potassium 3.1 on previous hospitalization. Mag and Phos were normal at that time. Will replete potassium as needed while here. Chronic medical conditions: ? Hypertension: On home amlodipine, losartan and hydralazine. Home medications held on admit for permissive hypertension, restart when able. ? Depression/anxiety/insomnia: Stable. Continue home sertraline, hydroxyzine at night and trazodone at night as needed. ? History of breast cancer: Follows with Dr. Riley, last office visit in 09/2023. 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 S/p partial mastectomy in 04/2023. Stable. Continue home anastrozole. Can resume zoledronic acid injections every 6 months on discharge. Continue outpatient oncology follow-up. Total clinical time spent by myself addressing the patient's medical issues, reviewing all the data, and collaborating with patient's care team: 55 minutes. Charges/Coding Visit Charges Inpatient E&M: 38437 Init Hosp L2
--- NOTE | 2024-03-17 13:48 | CM.ED ---
Social Work Reason for intervention: Stroke alert Referral source: SW identification after stroke alert Presented to patient's room after stroke alert called. Patient's daughter Una Chiu in room alone, patient out of room in imaging. Introduced daughter to self and social work role. Daughter tearful during social work visit, engaged in conversation and willing to talk. Daughter shares patient was just released from [facility] on Friday03.15.2024 after an overnight stay for TIA related issues. Daughter reports would like to get updates and have straightforward answers as to what is happening, as trying to make best decision for patient moving forward. Living Situation: Has been at [facility] in the memory care unit for the last 7 weeks. Prior to this had been at home with increasing more confusion and disorganization at home, including ability to manage medications on her own. POAHC/Living Will: Daughter Una is the POAHC. Both the living will and POAHC are on file. This check writer salesperson explored with daughter the patient's code status. Daughter reports to have thoughts on this, to know in heart what should do, but having a hard time making a decision about code status. Mental Health history:Daughter mentioned patient was having some hallucinations at one point and maybe some slight behaviors, and not sure if related to the dementia or the TIA. This check writer salesperson explored whether patient ever had any mental health issues prior to dementia diagnosis. Daughter reports patient with a history of depression, but some thought patient may have had tendencies through the years related to bipolar disorder. Una shared that patient had a daughter who is now , by suicide and had bipolar disorder. Una reports bipolar has never been an official diagnosis for patient however. Plan: Admission to floor. Return to [facility]. Handoff to acute CM/SW team who will follow on acute medical floor. -JAYNE Valdez
--- NOTE | 2024-03-17 14:53 | CASEMGMT ---
ADVANCE DIRECTIVE VALIDATION POAHC and Living Will are both scanned into the [facility] EMR. Patient's daughter Una Chiu is the primary POAHC. -JAYNE Valdez
[2024-03-17] MEDS: Lactated Ringers 1,000 ML 125 ML IV (15:46)
[2024-03-17] MEDS: traZODone 50 MG Tablet PO (21:24)
[2024-03-17] MEDS: Atorvastatin Calcium 40 MG Tablet PO (21:25)
[2024-03-17] MEDS: hydrOXYzine PAM 25 MG Capsule PO (21:25)
[2024-03-18] VITALS (26 sets, daily range): BP systolic 112–172; BP diastolic 55–98; PULSE 73–88; RESP 12–23; TEMP 36–36.6; O2SAT 90–99; BMI 24.4
[2024-03-18] MEDS: 0.9% Saline Lock 10 ML Syringe IV (03:40)
[2024-03-18 03:50] LABS: Hematocrit 34.6 % (37-47); Mean Corp Hgb Conc 31.8 g/dL (32-36); Mean Corpuscular Hgb 29.2 pg (27.0-32.0); Mean Corpuscular Volume 91.8 fL (81-99); Mean Platelet Vol. 9.2 fl (6.2-12.0); Platelet Count 251 K/mm3 (150-450); RBC Distribution Width CV 12.9 % (11.6-14.6); RBC Distribution Width SD 43.2 fl (35.1-43.9); Red Blood Count 3.77 M/mm3 (4.2-5.4); White Blood Count 5.4 K/mm3 (4.4-11.0)
[2024-03-18 04:08] LABS: Anion Gap 7 (5-15); BUN 15 mg/dL (7-18); Calcium,Total 9.2 mg/dL (8.5-10.1); Chloride 107 mmol/L (98-107); EST Glomerular Filtration Rate 57 mL/min (>60); Est Glom Filt Rate - Afr Amer 69 mL/min (>60); Estimated Creatinine Clearance 39.39 ml/min; Glucose 112 mg/dL (74-106); Potassium 3.3 mmol/L (3.5-5.1); Sodium Level 142 mmol/L (136-145)
[2024-03-18] MEDS: Potassium Chloride Oral Tablet 20 MEQ 40 MEQ PO (07:54)
[2024-03-18] MEDS: Anastrozole 1 MG TABLET PO (07:54)
[2024-03-18] MEDS: Sertraline 50 MG Tablet PO (07:54)
[2024-03-18] MEDS: Sertraline 50 MG Tablet 25 MG PO (07:55)
--- NOTE | 2024-03-18 08:07 | EX.PCM.CONCC ---
Assessment & Plan Assessment/Plan (1) Acute CVA (cerebrovascular accident): (2) MICHELLE (acute kidney injury): PLAN: Plan RECOMMENDATIONS: 1. Routine ICU monitoring per protocol. 2. Follow-up head imaging this afternoon. 3. PT/OT evaluations once repeat head imaging is completed. 4. Additional follow-up recommendations per neurology. 5. Will sign off. Please call if we can be of any additional assistance. IMPRESSIONS: 1. Questionable CVA status post tenecteplase Continue routine monitoring per protocol, with plans for follow-up head imaging later this afternoon. The patient is clinically stable at the present time. Treat blood pressures in excess of 185/110 mmHg. PT/OT evaluations once head imaging is completed. 2. Acute kidney injury Most likely prerenal in etiology as creatinine has normalized with volume expansion. Continue to monitor urine output. No current indication for renal replacement therapy. 3. History of advanced age/hypertension/history of breast CA/depression/anxiety Complicates care, management, recovery and prognosis. Continue home medications as indicated. This note was generated with [employer] dictation software. It may contain incorrect words, spelling, and punctuation that were not noted in checking the note before signing. HPI Consult Data Date of Consult: 03/18/24 HPI Narrative Reason for Consultation: Stroke status post tenecteplase HPI Narrative: The patient is a 78-year-old female, with a history as outlined below, who presented to the emergency department on March 17 via EMS with expressive aphasia, right-sided weakness and facial droop. The patient was actually just hospitalized as well under similar circumstances, with a negative stroke workup. On presentation to the emergency department, the patient was documented to be afebrile and hemodynamically stable. She was maintaining appropriate oxygen saturations on room air. Laboratory evaluation revealed a normal white blood cell count. Platelet count was normal. Coagulation profile was unremarkable. Chemistry profile was notable for a creatinine of 1.74 with a potassium of 3.4. CT head revealed chronic involutional changes of the brain. Head and neck CTA showed no evidence of a large vessel occlusion. Neurology consultation was obtained and the decision was made to administer tenecteplase. The patient was then admitted to the medical intensive care unit for further management. This morning, the patient has no specific complaints or focal deficits. [facility] Medical History Encounter for education Breast cancer, left breast Seizure disorder Stroke Vaginal itching Ulcerative colitis Sleep apnea Hypercholesteremia MVP (mitral valve prolapse) Low back pain Left hip pain Insomnia IBS (irritable bowel syndrome) Hypokalemia HTN (hypertension) Panic attacks GERD (gastroesophageal reflux disease) Expressive aphasia Eczema Dermatitis Depression Dementia Chronic osteoarthritis Chronic neck pain Chest wall pain Blepharitis of right eye Back pain Atrophic vaginitis Arthritis Anxiety Abdominal pain Amnesia Home Medications ?Medication ?Instructions ?Recorded ?Last Taken ?Type amlodipine 10 mg tablet 10 mg PO DAILY BLOOD PRESSURE 06/07/16 03/17/24 History hydralazine 50 mg tablet 50 mg PO BID BLOOD PRESSURE 06/07/16 03/17/24 History sertraline 50 mg tablet 50 mg PO DAILY DEPRESSION 10/14/23 03/17/24 History anastrozole 1 mg tablet 1 mg PO DAILY BREAST CANCER #90 12/01/23 03/17/24 Rx TABLETS cyclobenzaprine 10 mg tablet 10 mg PO TID PRN MUSCLE SPASMS 03/14/24 03/14/24 History aspirin 81 mg chewable tablet 81 mg PO BREAKFAST 90 days #90 tabs 03/15/24 Unknown Rx atorvastatin 40 mg tablet 40 mg PO QHS CHOLESTEROL 90 days 03/15/24 03/16/24 Rx #90 tabs hydroxyzine pamoate 25 mg capsule 25 mg PO Q6H PRN ANXIETY 03/17/24 Unknown History hydroxyzine pamoate 25 mg capsule 25 mg PO QPM ANXIETY 03/17/24 03/16/24 History loperamide 2 mg capsule 2 mg PO Q4H PRN LOOSE STOOL 03/17/24 Unknown History losartan 100 mg tablet 100 mg PO DAILY BLOOD PRESSURE 03/17/24 03/17/24 History sertraline 25 mg tablet 25 mg PO DAILY DEPRESSION 03/17/24 03/17/24 History trazodone 50 mg tablet 50 mg PO QHS DEPRESSION 03/17/24 03/16/24 History Allergy/AdvReac Type Severity Reaction Status Date / Time VIET Inhibitors Allergy Unknown Itching Verified 10/14/23 14:31 imipramine (From Tofranil) Allergy Unknown Vomiting Verified 10/14/23 14:31 naproxen (From Naprosyn) AdvReac Unknown PT UNSURE Verified 10/14/23 14:31 OF REACTION ondansetron (From Zofran) AdvReac Unknown Constipatio Verified 10/14/23 14:31 n zolpidem (From Ambien) AdvReac Unknown Other Verified 10/14/23 14:31 codeine AdvReac Other Verified 10/14/23 14:31 Family History Mother Cancer LUNG Sister Alzheimer disease Breast cancer Fibromyalgia Migraine CVA (cerebral vascular accident) Brother Alzheimer disease Cancer STOMACH Myocardial infarction Daughter Suicide Surgical History History of arthroscopic knee surgery History of appendectomy History of carpal tunnel release History of cholecystectomy History of lumbar fusion Social History Smoking Status: Never smoker alcohol intake: never substance use type: does not use ROS ROS Narrative 10 systems were reviewed with pertinent positives as noted in the HPI above. Physical Exam Const alert and no apparent distress General Appearance: cooperative HEENT normocephalic and head/scalp atraumatic Eyes PERRL, EOMs intact bilaterally and conjunctivae normal Neck supple General: trachea midline Chest inspection of chest normal Resp normal respiratory effort Auscultation: Negative for rales, rhonchi or wheezes Cardio regular rate and regular rhythm GI normal to inspection, nondistended, normoactive bowel sounds Extremity no clubbing, cyanosis or edema Skin no rashes or lesions noted Neuro CN's II-XII intact bilaterally and no focal motor deficits Psych cooperative and affect normal Lab / Micro Data 03/18/24 03:30 03/18/24 03:30 Labs: Laboratory Results - last 24 hr 03/17/24 10:45: WBC 7.1, RBC 4.26, Hgb 12.6, Hct 38.8, MCV 91.1, MCH 29.6, MCHC 32.5, RDW Std Deviation 42.2, RDW Coeff of Fabian 12.8, Plt Count 291, MPV 9.4, Immature Gran % (Auto) 0.300, Neut % (Auto) 71.0 H, Lymph % (Auto) 14.9 L, [place] % (Auto) 11.3 H, Eos % (Auto) 1.8, Baso % (Auto) 0.7, Absolute Neuts (auto) 5.0, Absolute Lymphs (auto) 1.06, Nucleated RBC % 0, PT 12.1, INR 0.9, APTT 25.3, Sodium 140, Potassium 3.4 L, Chloride 108 H, Carbon Dioxide 26.0, Anion Gap 6, BUN 22 H, Creatinine 1.74 H, Estim Creat Clear Calc 22.64, Est GFR (MDRD) Af Amer 36 L, Est GFR (MDRD) Non-Af 30 L, BUN/Creatinine Ratio 12.6, Glucose 123 H, Calcium 9.4, Troponin I High Sens 7 03/18/24 03:30: WBC 5.4, RBC 3.77 L, Hgb 11.0 L, Hct 34.6 L, MCV 91.8, MCH 29.2, MCHC 31.8 L, RDW Std Deviation 43.2, RDW Coeff of Fabian 12.9, Plt Count 251, MPV 9.2, Sodium 142, Potassium 3.3 L, Chloride 107, Carbon Dioxide 28.0, Anion Gap 7, BUN 15, Creatinine 1.00, Estim Creat Clear Calc 39.39, Est GFR (MDRD) Af Amer 69, Est GFR (MDRD) Non-Af 57 L, BUN/Creatinine Ratio 15.0, Glucose 112 H, Calcium 9.2 Imaging Radiology Impression Brain CT 03/17/24 10:45 IMPRESSION: Chronic involutional changes of the brain. N.B. : The above Results were Read Back by Sheldon Gibbons MD to Dr Rosalio DO, and understanding confirmed on 03/17/2024 11:00:25 (ET). Electronically Signed: Sheldon Gibbons MD at 11:01 EDT , ADDENDUM: 03/17/24 1108 IMPRESSION: Chronic involutional changes of the brain. N.B. : The above Results were Read Back by Sheldon Gibbons MD to Dr Rosalio DO, and understanding confirmed on 03/17/2024 11:00:25 (ET). Electronically Signed: Sheldon Gibbons MD at 11:01 EDT , Chest X-Ray 03/17/24 10:45 IMPRESSION: No acute abnormality is seen. Stable examination. Electronically Signed: Sheldon Gibbons MD at 12:19 EDT , Head/Neck CTA 03/17/24 10:46 IMPRESSION: Mild degree of plaque formation at the origin of the right and left internal carotid arteries. There has been no change. N.B. : The above Results were Read Back by Sheldon Gibbons MD to Nabeel Santamaria and understanding confirmed on 03/17/2024 11:09:17 (ET). Electronically Signed: Sheldon Gibbons MD at 11:10 EDT , Charges/Coding Visit Charges Inpatient E&M: 26857 Init Hosp L2
--- NOTE | 2024-03-18 10:24 | STROKE.CONS ---
Assessment and Plan: Stroke Assessment/Plan VIJI AMANDA is a 78 F with a history of seizure disorder, TIA, CVA, HTN, GERD, dementia, HEIDI, presents a 78 with worsening confusion, aphasia, and right-sided facial droop, right sided weakness concerning for stroke. CT brain without contrast and CTA head/neck appeared stable from previous scans from 3 days ago. Given high concern for active stroke and known last well time, tenecteplase was administered. Her symptoms have improved. Not a MT candidate. Neurological examination shows mild aphasia, dysarthria. Neuroimaging shows CT brain without contrast and CTA head/neck appeared stable Plan 1. F/up MRI Brain 2. If no hemorrhage start ASA 3. HTN: Permissive hypertension and on fdc will need normotension 4. 30 Day cardiac event monitor upon discharge 5. PT,OT, Speech and Swallow evaluation 6. Stroke education Thanks for consult. Spent 40 minutes in evaluation of this patient. HPI Consult Data Date of Consult: 03/18/24 HPI Narrative HPI Narrative: VIJI AMANDA, is a 78 F with seizure disorder, TIA, CVA, HTN, GERD, dementia, HEIDI, presents a 78 with worsening confusion, aphasia, and right-sided facial droop, right sided weakness concerning for stroke. CT brain without contrast and CTA head/neck appeared stable from previous scans from 3 days ago. Given high concern for active stroke and known last well time, tenecteplase was administered. She was noticed to be nonsensical. Her speech and weakness have improved. She had similar TIA episode few days ago that had resolved and MRI was negative. Patient started noted during that hospitalization that patient was previously living at home alone and today recently moved her to [place] about 2 months ago for worsening functional status at home and signs of cognitive impairment. [facility] Medical History Encounter for education Breast cancer, left breast Seizure disorder Stroke Vaginal itching Ulcerative colitis Sleep apnea Hypercholesteremia MVP (mitral valve prolapse) Low back pain Left hip pain Insomnia IBS (irritable bowel syndrome) Hypokalemia HTN (hypertension) Panic attacks GERD (gastroesophageal reflux disease) Expressive aphasia Eczema Dermatitis Depression Dementia Chronic osteoarthritis Chronic neck pain Chest wall pain Blepharitis of right eye Back pain Atrophic vaginitis Arthritis Anxiety Abdominal pain Amnesia Home Medications ?Medication ?Instructions ?Recorded ?Last Taken ?Type amlodipine 10 mg tablet 10 mg PO DAILY BLOOD PRESSURE 06/07/16 03/17/24 History hydralazine 50 mg tablet 50 mg PO BID BLOOD PRESSURE 06/07/16 03/17/24 History sertraline 50 mg tablet 50 mg PO DAILY DEPRESSION 10/14/23 03/17/24 History anastrozole 1 mg tablet 1 mg PO DAILY BREAST CANCER #90 12/01/23 03/17/24 Rx TABLETS cyclobenzaprine 10 mg tablet 10 mg PO TID PRN MUSCLE SPASMS 03/14/24 03/14/24 History aspirin 81 mg chewable tablet 81 mg PO BREAKFAST 90 days #90 tabs 03/15/24 Unknown Rx atorvastatin 40 mg tablet 40 mg PO QHS CHOLESTEROL 90 days 03/15/24 03/16/24 Rx #90 tabs hydroxyzine pamoate 25 mg capsule 25 mg PO Q6H PRN ANXIETY 03/17/24 Unknown History hydroxyzine pamoate 25 mg capsule 25 mg PO QPM ANXIETY 03/17/24 03/16/24 History loperamide 2 mg capsule 2 mg PO Q4H PRN LOOSE STOOL 03/17/24 Unknown History losartan 100 mg tablet 100 mg PO DAILY BLOOD PRESSURE 03/17/24 03/17/24 History sertraline 25 mg tablet 25 mg PO DAILY DEPRESSION 03/17/24 03/17/24 History trazodone 50 mg tablet 50 mg PO QHS DEPRESSION 03/17/24 03/16/24 History Allergy/AdvReac Type Severity Reaction Status Date / Time VIET Inhibitors Allergy Unknown Itching Verified 10/14/23 14:31 imipramine (From Tofranil) Allergy Unknown Vomiting Verified 10/14/23 14:31 naproxen (From Naprosyn) AdvReac Unknown PT UNSURE Verified 10/14/23 14:31 OF REACTION ondansetron (From Zofran) AdvReac Unknown Constipatio Verified 10/14/23 14:31 n zolpidem (From Ambien) AdvReac Unknown Other Verified 10/14/23 14:31 codeine AdvReac Other Verified 10/14/23 14:31 Family History Mother Cancer LUNG Sister Alzheimer disease Breast cancer Fibromyalgia Migraine CVA (cerebral vascular accident) Brother Alzheimer disease Cancer STOMACH Myocardial infarction Daughter Suicide Surgical History History of arthroscopic knee surgery History of appendectomy History of carpal tunnel release History of cholecystectomy History of lumbar fusion Social History Smoking Status: Never smoker alcohol intake: never substance use type: does not use Vital Signs Vital Signs Vital Signs: 03/17/24 10:41 03/17/24 10:45 03/17/24 10:45 Temperature 97.7 F L Temperature Source Temporal Pulse Rate 90 95 Pulse Strength Respiratory Rate 16 29 H Respiratory Effort Respiratory Depth Respiratory Pattern Blood Pressure 144/76 H 175/82 H Blood Pressure Mean 98 113 Blood Pressure Source Blood Pressure Position Blood Pressure Location Pulse Ox 98 99 Oxygen Delivery Method Room Air Room Air Room Air 03/17/24 11:00 03/17/24 11:13 03/17/24 11:13 Temperature Temperature Source Pulse Rate 95 94 92 Pulse Strength Respiratory Rate 17 23 H 25 H Respiratory Effort Respiratory Depth Respiratory Pattern Blood Pressure 165/87 H 148/72 H 148/72 H Blood Pressure Mean 113 97 97 Blood Pressure Source Monitor Blood Pressure Position Semi-Fowlers Blood Pressure Location Left Arm Pulse Ox 98 96 97 Oxygen Delivery Method Room Air Room Air Room Air 03/17/24 11:28 03/17/24 11:37 03/17/24 11:43 Temperature Temperature Source Pulse Rate 95 92 Pulse Strength Respiratory Rate 22 H 25 H Respiratory Effort Respiratory Depth Respiratory Pattern Blood Pressure 149/76 H 148/72 H 153/71 H Blood Pressure Mean 100 98 Blood Pressure Source Monitor Monitor Blood Pressure Position Semi-Fowlers Semi-Fowlers Blood Pressure Location Right Arm Left Arm Pulse Ox 99 98 Oxygen Delivery Method Room Air Room Air 03/17/24 11:52 03/17/24 11:58 03/17/24 12:09 Temperature 96.7 F L Temperature Source Pulse Rate 90 90 90 Pulse Strength Respiratory Rate 16 22 H 22 H Respiratory Effort Respiratory Depth Respiratory Pattern Blood Pressure 144/76 H 158/74 H 158/74 H Blood Pressure Mean 98 102 102 Blood Pressure Source Monitor Blood Pressure Position Semi-Fowlers Blood Pressure Location Left Arm Pulse Ox 98 98 98 Oxygen Delivery Method Room Air Room Air 03/17/24 12:13 03/17/24 12:28 03/17/24 12:43 Temperature Temperature Source Pulse Rate 82 79 82 Pulse Strength Respiratory Rate 23 H 26 H 22 H Respiratory Effort Respiratory Depth Respiratory Pattern Blood Pressure 161/72 H 155/78 H 153/75 H Blood Pressure Mean 101 103 101 Blood Pressure Source Monitor Monitor Monitor Blood Pressure Position Semi-Fowlers Semi-Fowlers Semi-Fowlers Blood Pressure Location Left Arm Left Arm Left Arm Pulse Ox 95 98 98 Oxygen Delivery Method Room Air Room Air Room Air 03/17/24 12:58 03/17/24 13:13 03/17/24 13:43 Temperature Temperature Source Pulse Rate 81 76 89 Pulse Strength Respiratory Rate 20 H 23 H 19 H Respiratory Effort Respiratory Depth Respiratory Pattern Blood Pressure 165/71 H 169/77 H 139/101 H Blood Pressure Mean 102 107 113 Blood Pressure Source Monitor Monitor Monitor Blood Pressure Position Semi-Fowlers Semi-Fowlers Semi-Fowlers Blood Pressure Location Left Arm Left Arm Right Arm Pulse Ox 99 98 97 Oxygen Delivery Method Room Air Room Air Room Air 03/17/24 14:00 03/17/24 14:00 03/17/24 14:30 Temperature 97.9 F Temperature Source Oral Pulse Rate 83 85 Pulse Strength Respiratory Rate 12 18 Respiratory Effort Normal Non-Labored Respiratory Depth Normal Respiratory Pattern Normal Blood Pressure 170/68 H 137/60 H Blood Pressure Mean 102 85 Blood Pressure Source Monitor Monitor Blood Pressure Position Semi-Fowlers Semi-Fowlers Blood Pressure Location Right Arm Right Arm Pulse Ox 93 93 Oxygen Delivery Method Room Air Room Air Room Air 03/17/24 15:00 03/17/24 15:19 03/17/24 15:30 Temperature Temperature Source Pulse Rate 94 84 Pulse Strength Respiratory Rate 19 H 16 Respiratory Effort Respiratory Depth Respiratory Pattern Blood Pressure 137/60 H 170/79 H Blood Pressure Mean 85 109 Blood Pressure Source Monitor Monitor Blood Pressure Position Semi-Fowlers Semi-Fowlers Blood Pressure Location Right Arm Right Arm Pulse Ox 100 100 97 Oxygen Delivery Method Room Air Room Air Room Air 03/17/24 16:00 03/17/24 16:30 03/17/24 17:00 Temperature Temperature Source Pulse Rate 90 83 94 Pulse Strength Respiratory Rate 20 H 22 H 16 Respiratory Effort Respiratory Depth Respiratory Pattern Blood Pressure 169/76 H 166/75 H 152/75 H Blood Pressure Mean 107 105 100 Blood Pressure Source Monitor Monitor Monitor Blood Pressure Position Supine Semi-Fowlers Semi-Fowlers Blood Pressure Location Right Arm Right Arm Right Arm Pulse Ox 95 98 99 Oxygen Delivery Method Room Air Room Air Room Air 03/17/24 17:30 03/17/24 18:00 03/17/24 18:00 Temperature Temperature Source Pulse Rate 95 90 Pulse Strength Respiratory Rate 16 18 Respiratory Effort Normal Non-Labored Respiratory Depth Normal Respiratory Pattern Normal Blood Pressure 158/65 H 141/53 H Blood Pressure Mean 96 82 Blood Pressure Source Monitor Monitor Blood Pressure Position Semi-Fowlers Semi-Fowlers Blood Pressure Location Right Arm Right Arm Pulse Ox 97 98 Oxygen Delivery Method Room Air Room Air Room Air 03/17/24 18:30 03/17/24 19:00 03/17/24 19:30 Temperature 98 F Temperature Source Oral Pulse Rate 93 82 82 Pulse Strength Respiratory Rate 18 18 24 H Respiratory Effort Respiratory Depth Respiratory Pattern Blood Pressure 144/64 H 149/62 H 139/59 H Blood Pressure Mean 90 91 85 Blood Pressure Source Monitor Monitor Monitor Blood Pressure Position Semi-Fowlers Semi-Fowlers Semi-Fowlers Blood Pressure Location Right Arm Right Arm Right Arm Pulse Ox 98 97 97 Oxygen Delivery Method Room Air Room Air Room Air 03/17/24 19:30 03/17/24 20:00 03/17/24 20:30 Temperature Temperature Source Pulse Rate 84 80 Pulse Strength Respiratory Rate 22 H 19 H Respiratory Effort Normal Non-Labored Respiratory Depth Normal Respiratory Pattern Normal Blood Pressure 141/70 H 150/74 H Blood Pressure Mean 93 99 Blood Pressure Source Monitor Monitor Blood Pressure Position Blood Pressure Location Pulse Ox 96 95 Oxygen Delivery Method Room Air Room Air 03/17/24 21:30 03/17/24 22:30 03/17/24 23:30 Temperature 97.8 F Temperature Source Temporal Pulse Rate 93 83 75 Pulse Strength Respiratory Rate 24 H 22 H 12 Respiratory Effort Respiratory Depth Respiratory Pattern Blood Pressure 146/76 H 132/83 H 142/64 H Blood Pressure Mean 99 99 90 Blood Pressure Source Monitor Monitor Monitor Blood Pressure Position Blood Pressure Location Pulse Ox 95 96 96 Oxygen Delivery Method Room Air Room Air Room Air 03/18/24 00:00 03/18/24 00:30 03/18/24 01:30 Temperature 97.8 F Temperature Source Temporal Pulse Rate 78 75 73 Pulse Strength Respiratory Rate 12 12 14 Respiratory Effort Respiratory Depth Respiratory Pattern Blood Pressure 113/65 130/56 H 128/63 H Blood Pressure Mean 81 80 84 Blood Pressure Source Monitor Monitor Monitor Blood Pressure Position Blood Pressure Location Pulse Ox 92 95 96 Oxygen Delivery Method Room Air Room Air Room Air 03/18/24 02:30 03/18/24 03:30 03/18/24 04:30 Temperature 97.6 F L Temperature Source Temporal Pulse Rate 78 85 76 Pulse Strength Respiratory Rate 16 13 15 Respiratory Effort Respiratory Depth Respiratory Pattern Blood Pressure 122/55 H 121/61 H 142/72 H Blood Pressure Mean 77 81 95 Blood Pressure Source Monitor Monitor Monitor Blood Pressure Position Blood Pressure Location Pulse Ox 96 97 95 Oxygen Delivery Method Room Air Room Air Room Air 03/18/24 05:30 03/18/24 06:30 03/18/24 07:30 Temperature 96.8 F L Temperature Source Temporal Pulse Rate 77 80 79 Pulse Strength Respiratory Rate 15 12 16 Respiratory Effort Respiratory Depth Respiratory Pattern Blood Pressure 144/96 H 140/62 H 160/77 H Blood Pressure Mean 112 88 104 Blood Pressure Source Monitor Monitor Monitor Blood Pressure Position Semi-Fowlers Blood Pressure Location Right Arm Pulse Ox 97 98 97 Oxygen Delivery Method Room Air Room Air Room Air 03/18/24 07:44 03/18/24 08:30 03/18/24 08:48 Temperature Temperature Source Pulse Rate 78 Pulse Strength Normal (2+) Respiratory Rate 13 Respiratory Effort Normal Non-Labored Respiratory Depth Normal Respiratory Pattern Normal Blood Pressure 160/75 H Blood Pressure Mean 103 Blood Pressure Source Monitor Blood Pressure Position Semi-Fowlers Blood Pressure Location Right Arm Pulse Ox 97 Oxygen Delivery Method Room Air Room Air 03/18/24 09:30 03/18/24 10:23 Temperature Temperature Source Pulse Rate 83 Pulse Strength Respiratory Rate 18 Respiratory Effort Respiratory Depth Respiratory Pattern Blood Pressure 135/71 H Blood Pressure Mean 92 Blood Pressure Source Monitor Blood Pressure Position Semi-Fowlers Blood Pressure Location Right Arm Pulse Ox 98 98 Oxygen Delivery Method Room Air Room Air Weight Weight: 64.9 kg Body Mass Index (BMI) 24.4 NIHSS NIHSS Nursing Documentation NIHSS Nursing Documentation: NIHSS: Ischemic Stroke/TIA Start: 03/17/24 14:12 Freq: Status: Complete Protocol: Activity Type Activity Date Activity User E-sign Co-sign Detail Recorded Client Recorded Date Recorded By Document 03/17/24 14:00 TD [id number] 03/17/24 14:14 TD 03/17/24 14:00 NIH Stroke Scale [NIHSS] A score of 0 is normal or asymptomatic . Total possible score is 42. Inpatient: RN or Physician to activate a stroke alert for onset of new stroke symptoms or with NIHSS increase >/= 3 points. Following change in neurological status, NIHSS will be performed per physician order or more frequently PRN. -1a. Level of Consciousness Alert; keenly responsive -1b. LOC Questions Answers one question correctly. -1c. LOC Commands Performs both tasks correctly . -2. Best Gaze Partial gaze palsy; -3. Visual No visual loss -4. Facial Palsy Normal symmetrical movements -5a. Left Arm No drift; arm holds 90 (or 45 ) degrees for full 10 seconds -5b. Right Arm No drift; arm holds 90 (or 45 ) degrees for full 10 seconds -6a. Left Leg No drift; leg holds 30-degree position for full 5 seconds -6b. Right Leg No drift; leg holds 30-degree position for full 5 seconds -7. Limb Ataxia Absent -8. Sensory Normal; no sensory loss -9. Best Language Mild-to- moderate aphasia; -10. Dysarthria Mild-to- moderate dysarthria; -11. Extinction and Inattention No abnormality -Total 4 Query Text:A score of 0 is normal or asymptomatic. Total possible score is 42 . ED: Notify Physician for NIHSS increase by > / = 3 points. Inpatient: RN or Physician to activate a stroke alert for NIHSS increase of > / = 3 points. Thrombolytic: Vital Signs & NIHSS Start: 03/17/24 11:13 Text: Assess and document vital signs and NIHSS Status: Active within 15 minutes of tenecteplase bolus administration Freq: [id number] Protocol: Activity Type Activity Date Activity User E-sign Co-sign Detail Recorded Client Recorded Date Recorded By Document 03/18/24 09:30 TD [id number] 03/18/24 09:37 TD 03/18/24 09:30 Vital Signs [Pulse] -Pulse Rate (60-100) 83 -Pulse Location Monitor [Respirations] -Respiratory Rate (12-18) 18 -Respiratory rate source Monitor -Pulse Oximetry 98 -Oxygen Delivery Method Room Air [Blood Pressure] -Blood Pressure (90/60-120/80) 135/71 H -Blood Pressure Mean 92 -Source Monitor -Position Semi-Fowlers -Blood Pressure Location Right Arm -Is the SBP > or = 180 No -Is the DBP > or = 105 No NIH Stroke Scale [NIHSS] A score of 0 is normal or asymptomatic . Total possible score is 42. Inpatient: RN or Physician to activate a stroke alert for onset of new stroke symptoms or with NIHSS increase >/= 3 points. Following change in neurological status, NIHSS will be performed per physician order or more frequently PRN. -1a. Level of Consciousness Alert; keenly responsive -1b. LOC Questions Answers one question correctly. -1c. LOC Commands Performs both tasks correctly . -2. Best Gaze Normal -3. Visual No visual loss -4. Facial Palsy Normal symmetrical movements -5a. Left Arm No drift; arm holds 90 (or 45 ) degrees for full 10 seconds -5b. Right Arm No drift; arm holds 90 (or 45 ) degrees for full 10 seconds -6a. Left Leg No drift; leg holds 30-degree position for full 5 seconds -6b. Right Leg No drift; leg holds 30-degree position for full 5 seconds -7. Limb Ataxia Absent -8. Sensory Normal; no sensory loss -9. Best Language Mild-to- moderate aphasia; -10. Dysarthria Normal -11. Extinction and Inattention No abnormality -Total 2 Query Text:A score of 0 is normal or asymptomatic. Total possible score is 42 . ED: Notify Physician for NIHSS increase by > / = 3 points. Inpatient: RN or Physician to activate a stroke alert for NIHSS increase of > / = 3 points. NIHSS 1a. Level of Consciousness: Alert; keenly responsive 1b. LOC Questions: Answers BOTH questions correctly. 1c. LOC Commands: Performs both tasks correctly. 2. Best Gaze: Normal 3. Visual: No visual loss 4. Facial Palsy: Normal symmetrical movements 5a. Left Arm: No drift; arm holds 90 (or 45) degrees for full 10 seconds 5b. Right Arm: No drift; arm holds 90 (or 45) degrees for full 10 seconds 6a. Left Leg: No drift; leg holds 30-degree position for full 5 seconds 6b. Right Leg: No drift; leg holds 30-degree position for full 5 seconds 7. Limb Ataxia: Absent 8. Sensory: Normal; no sensory loss 9. Best Language: [id number] aphasia; 10. Dysarthria: [id number] dysarthria; 11. Extinction and Inattention: No abnormality Total: 2 Physical Exam HEENT normocephalic and head/scalp atraumatic Eyes EOMs intact bilaterally Resp normal respiratory effort Neuro Neuro Narrative: Awake, alert, tells the month Mild aphasia, dysarthria, paraphasic errors Cranial nerves 2-12 intact Power 5/5 Sensation: Intact No ataxia Lab / Micro Data 03/18/24 03:30 03/18/24 03:30 Labs: Laboratory Results - last 24 hr 03/17/24 10:45: WBC 7.1, RBC 4.26, Hgb 12.6, Hct 38.8, MCV 91.1, MCH 29.6, MCHC 32.5, RDW Std Deviation 42.2, RDW Coeff of Fabian 12.8, Plt Count 291, MPV 9.4, Immature Gran % (Auto) 0.300, Neut % (Auto) 71.0 H, Lymph % (Auto) 14.9 L, [place] % (Auto) 11.3 H, Eos % (Auto) 1.8, Baso % (Auto) 0.7, Absolute Neuts (auto) 5.0, Absolute Lymphs (auto) 1.06, Nucleated RBC % 0, PT 12.1, INR 0.9, APTT 25.3, Sodium 140, Potassium 3.4 L, Chloride 108 H, Carbon Dioxide 26.0, Anion Gap 6, BUN 22 H, Creatinine 1.74 H, Estim Creat Clear Calc 22.64, Est GFR (MDRD) Af Amer 36 L, Est GFR (MDRD) Non-Af 30 L, BUN/Creatinine Ratio 12.6, Glucose 123 H, Calcium 9.4, Troponin I High Sens 7 03/18/24 03:30: WBC 5.4, RBC 3.77 L, Hgb 11.0 L, Hct 34.6 L, MCV 91.8, MCH 29.2, MCHC 31.8 L, RDW Std Deviation 43.2, RDW Coeff of Fabian 12.9, Plt Count 251, MPV 9.2, Sodium 142, Potassium 3.3 L, Chloride 107, Carbon Dioxide 28.0, Anion Gap 7, BUN 15, Creatinine 1.00, Estim Creat Clear Calc 39.39, Est GFR (MDRD) Af Amer 69, Est GFR (MDRD) Non-Af 57 L, BUN/Creatinine Ratio 15.0, Glucose 112 H, Calcium 9.2 Imaging Radiology Impression Brain CT 03/17/24 10:45 IMPRESSION: Chronic involutional changes of the brain. N.B. : The above Results were Read Back by Sheldon Gibbons MD to Dr Rosalio DO, and understanding confirmed on 03/17/2024 11:00:25 (ET). Electronically Signed: Sheldon Gibbons MD at 11:01 EDT , ADDENDUM: 03/17/24 1108 IMPRESSION: Chronic involutional changes of the brain. N.B. : The above Results were Read Back by Sheldon Gibbons MD to Dr Rosalio DO, and understanding confirmed on 03/17/2024 11:00:25 (ET). Electronically Signed: Sheldon Gibbons MD at 11:01 EDT , Chest X-Ray 03/17/24 10:45 IMPRESSION: No acute abnormality is seen. Stable examination. Electronically Signed: Sheldon Gibbons MD at 12:19 EDT , Head/Neck CTA 03/17/24 10:46 IMPRESSION: Mild degree of plaque formation at the origin of the right and left internal carotid arteries. There has been no change. N.B. : The above Results were Read Back by Sheldon Gibbons MD to Nabeel Santamaria and understanding confirmed on 03/17/2024 11:09:17 (ET). Electronically Signed: Sheldon Gibbons MD at 11:10 EDT , Active Medications Active Medications Active Medications: Current Medications Generic Name Dose Route Start Last Admin Trade Name Freq PRN Reason Stop Dose Admin Acetaminophen 650 mg 03/17/24 11:13 Acetaminophen 325 Mg Tablet PO X1 PRN Temp > 99.6 F Acetaminophen 650 mg 03/17/24 14:11 Acetaminophen 325 Mg Tablet PO Q4H PRN PRN Pain 1-10 Or Fever >99.6 Anastrozole 1 mg 03/18/24 10:00 03/18/24 07:54 Anastrozole 1 Mg Tablet PO 1 mg DAILY VICTOR HUGO Administration Atorvastatin Calcium 40 mg 03/17/24 22:00 03/17/24 21:25 Atorvastatin Calcium 40 Mg Tablet PO 40 mg QHS VICTOR HUGO Administration Diphenhydramine HCl 50 mg 03/17/24 11:13 Diphenhydramine 50 Mg/Ml Syringe IV 03/18/24 11:13 X1 PRN Allergic Reaction Epinephrine HCl 0.3 mg 03/17/24 11:13 Epi Pen (Equiv) 0.3 Mg Syringe IM 03/18/24 11:13 X1 PRN Allergic Reaction Hydroxyzine Pamoate 25 mg 03/17/24 14:11 Hydroxyzine [place] 25 Mg Capsule PO Q6H PRN ANXIETY Hydroxyzine Pamoate 25 mg 03/17/24 21:00 03/17/24 21:25 Hydroxyzine [place] 25 Mg Capsule PO 25 mg QPM VICTOR HUGO Administration Famotidine 20 mg/ Sodium 10 mls @ 300 mls/hr 03/17/24 11:13 Chloride IV 03/18/24 11:13 X1 PRN Allergic Reaction Nicardipine/Sodium Chloride 20 mg in 200 mls @ 50 mls/hr 03/17/24 11:13 Cardene-Abhinav 20 Mg/200 Ml Soln CONT INF 03/18/24 11:13 Q4H PRN See Instructions Protocol 5 MG/HR Sodium Chloride 250 mls @ 15 mls/hr 03/17/24 14:04 IV .[id number] PRN Additional IVPB Infusion Sodium Chloride 250 mls @ 15 mls/hr 03/17/24 14:04 IV .[id number] PRN Saline Flush Labetalol HCl 20 mg 03/17/24 10:53 Labetalol (Prefilled) 20 Mg/4 Ml IV X1 PRN BLOOD PRESSURE Labetalol HCl 20 mg 03/17/24 11:13 Labetalol (Compound) 20 Mg/4 Ml Syringe IV 03/18/24 11:13 X1 PRN BLOOD PRESSURE Methylprednisolone 125 mg 03/17/24 11:13 Methylprednisolone 125 Mg/2 Ml Vial IV 03/18/24 11:13 X1 PRN Allergic Reaction Sertraline HCl 50 mg 03/18/24 10:00 03/18/24 07:54 Sertraline 50 Mg Tablet PO 50 mg DAILY VICTOR HUGO Administration Sertraline HCl 25 mg 03/18/24 10:00 03/18/24 07:55 Sertraline 50 Mg Tablet PO 25 mg DAILY VICTOR HUGO Administration Sodium Chloride 10 - 40 ml 03/17/24 14:04 03/18/24 03:40 0.9% Saline Lock 10 Ml Syringe IV 10 ml UD PRN Administration SALINE FLUSH Trazodone HCl 50 mg 03/17/24 22:00 03/17/24 21:24 Trazodone 50 Mg Tablet PO 50 mg QHS VICTOR HUGO Administration
--- NOTE | 2024-03-18 12:00 | MRI_ITS ---
EXAM: MR HEAD WITHOUT INTRAVENOUS CONTRAST CLINICAL INDICATION: CVA. MRI 24 hours after IV thrombolytic administration TECHNIQUE: Multiplanar and multisequence MR images of the brain were obtained without intravenous contrast. COMPARISON: MRI brain without contrast 03/15/2024. FINDINGS: BRAIN AND EXTRA-AXIAL SPACES: No diffusion restriction to suspect acute or subacute ischemic infarct. Old lacunar cystic infarct in the left periventricular white matter is unchanged. Confluent chronic white matter ischemic changes in both cerebral hemispheres are unchanged. No abnormal magnetic susceptibility foci throughout the brain parenchyma on the GRE sequence. No intra- or extra-axial hemorrhage. No intracranial mass or mass effect. Posterior fossa structures are unremarkable. No hydrocephalus. Basal cisterns are patent. SELLA: Unremarkable. Normal sella turcica, pituitary gland, infundibular stalk, optic chiasm and hypothalamus. AUDITORY SYSTEM: Unremarkable. The internal auditory canals are patent. BONES/JOINTS: Unremarkable. No discrete lytic or blastic abnormalities. SINUSES: Unremarkable as visualized. Clear. MASTOID AIR CELLS: Unremarkable as visualized. Clear. ORBITS: Unremarkable as visualized. Both globes, extraocular muscles, optic nerves and retrobulbar fat appear unremarkable. VASCULATURE: Unremarkable as visualized. Normal flow voids in the major intracranial circulation. MRI/Brain without Contrast IMPRESSION: 1. No MRI evidence of acute or subacute ischemic infarct or acute intracranial abnormality 24 hours after IV thrombolytic administration. 2. Old lacunar cystic infarct in the left periventricular white matter and confluent chronic white matter ischemic changes in both cerebral hemispheres are unchanged. Electronically Signed: Josesito Diaz MD at 12:58 EDT ,
--- NOTE | 2024-03-18 14:24 | PCM.PN.HOSP ---
Reason for Visit Reason for Visit: Diagnoses Cerebral infarction, unspecified (03/17/24) Acute kidney failure, unspecified (03/17/24) Objective Data Objective Data Vital Signs: Vital Signs Temp Pulse Resp BP Pulse Ox O2 Del Method 97.9 F 84 21 H 161/77 H 98 Room Air 03/18/24 12:00 03/18/24 12:30 03/18/24 12:30 03/18/24 12:30 03/18/24 12:30 03/18/24 12:30 Oxygen Delivery Method Room Air Weight: 143 lb 1.28 oz Body Mass Index (BMI) 24.4 Intake & Output: Intake and Output for Last 24 Hours 03/16/24 03/17/24 03/18/24 23:59 23:59 23:59 Intake Total 1480 / 1480 120 / 120 Output Total 1999 / 1999 525 / 525 Balance -520 / -520 -405 / -405 Lab / Micro Data 03/18/24 03:30 03/18/24 03:30 Labs: Laboratory Results - last 24 hr 03/18/24 03:30: WBC 5.4, RBC 3.77 L, Hgb 11.0 L, Hct 34.6 L, MCV 91.8, MCH 29.2, MCHC 31.8 L, RDW Std Deviation 43.2, RDW Coeff of Fabian 12.9, Plt Count 251, MPV 9.2, Sodium 142, Potassium 3.3 L, Chloride 107, Carbon Dioxide 28.0, Anion Gap 7, BUN 15, Creatinine 1.00, Estim Creat Clear Calc 39.39, Est GFR (MDRD) Af Amer 69, Est GFR (MDRD) Non-Af 57 L, BUN/Creatinine Ratio 15.0, Glucose 112 H, Calcium 9.2 Radiography Diagnostic Testing: Radiology Impression Brain MRI 03/18/24 12:00 IMPRESSION: 1. No MRI evidence of acute or subacute ischemic infarct or acute intracranial abnormality 24 hours after IV thrombolytic administration. 2. Old lacunar cystic infarct in the left periventricular white matter and confluent chronic white matter ischemic changes in both cerebral hemispheres are unchanged. Electronically Signed: Josesito Diaz MD at 12:58 EDT , Physical Exam Narrative Seen and examined. In the morning patient went for the MRI. When she returned from MRI she was very agitated, aggressive and code danyell was called. Prior to that when she was still agitated and aggressive, Haldol 2 mg IV and Phenergan 12.5 mg IM given. Patient has a history of dementia and she is on hydroxyzine scheduled at night and as needed during daytime and Zoloft. Physical exam General: Awake but agitated. Disoriented. HEENT: Atraumatic, PERRLA, EOMI, Normocephalic Oral: No Gingival or Mucosal Lesions/ Ulcerations Neck: Supple, No JVD, Negative Carotid Bruits Chest wall/Lungs: Air entry diminished in bilateral lung bases. No crepitation/rhonchi Cardiovascular: Regular rate, Regular Rhythm, Normal S1, Normal S2, No M/G/R Abdomen: Bowel Sounds Present, Soft, Non Tender, Non-Distended : No dysuria. No renal angle tenderness. No suprapubic tenderness. Extremities: No edema, Capillary Refill Less than 3 Seconds Skin: No rashes, No breakdown Musculoskeletal: No Tenderness to Palpation of Joints or Extremities Neurological: Cranial nerves II-XII grossly intact, DTR 2+/4. Nonfocal exam. Psych/Mental Status: Aggressive and agitated. Trying to hurt or kill the people. Assessment & Plan Assessment/Plan (1) Acute CVA (cerebrovascular accident): (2) MICHELLE (acute kidney injury): PLAN: Plan Patient is a 78-year-old female who presented [facility] ED on 03/17/2024 as a stroke alert. 1. Concern for CVA s/p TNK administration; recent hospitalization for TIA ? Admit under inpatient status to ICU. Electrical Panel Builder and teleneurology consulted. Presented with altered mentation, expressive aphasia, right-sided weakness and reported right facial droop. Notably these symptoms were about identical to her symptoms on presentation for her TIA on 03/14. Stroke workup included MRI brain without contrast, echo, labs and all were unremarkable. Patient showed improvement and was discharged back to assisted living facility on 03/15. CT head imaging on this admission with similar findings to previous. However, given high NIHSS score decision was made in the ED to move forward with TNK administration. TNK was given at 11:13 AM on 03/17. Orders placed per stroke with TNK administration order set on admit. Bedrest for 24 hours. 03/18: Patient had MRI which does not show acute or subacute ischemic infarct or acute intracranial abnormality 24 hours after IV thrombolytic administration. Patient had acute change in mental status with confusion and agitation, loss of reality, paranoia. She has feeling that it is someone is going to hurt her. Yelling and wants her to take home. Code danyell was called. Soft restraint ordered. Most likely cause of acute mental status may be psychiatric manifestation with dementia with psychiatric manifestation, derealization, or dissociation or conversant disorder. Holding home aspirin, continue home statin. PT/OT/case management consulted. 2. 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 Noted on CTA head/neck during previous hospitalization, which showed a focal aneurysmal dilation of the distal right internal carotid artery measuring 7 mm in diameter. Was suspected that this was an incidental finding and not related to her TIA presentation. CTA head/neck on this admission with the same finding. No inpatient needs; per neurology from prior admission, can follow-up outpatient for neurosurgical evaluation if patient desires. 3. MICHELLE ? Creatinine 1.74 on admit, baseline creatinine appears to be around 0.7. Creatinine notably was 0.74 on 03/15 (day of previous discharge). Suspect prerenal etiology from poor p.o. intake. IV fluids given on admission. Anderson catheter placed on admit as patient is bedrest after TNK administration. Monitor daily BMP and urine output. 03/18: Creatinine 1.0. MICHELLE resolved. 4. Mild hypokalemia ? Potassium 3.4 on admit. Notably presented with potassium 3.1 on previous hospitalization. Mag and Phos were normal at that time. Will replete potassium as needed while here. Chronic medical conditions: ? Hypertension: On home amlodipine, losartan and hydralazine. Home medications held on admit for permissive hypertension, restart when able. ? Depression/anxiety/insomnia: Stable. Continue home sertraline, hydroxyzine at night and trazodone at night as needed. ? History of breast cancer: Follows with Dr. Riley, last office visit in 09/2023. Diagnosed with stage I AAA invasive lobular carcinoma of left breast, ER/ID positive in 03/2023. S/p partial mastectomy in 04/2023. Stable. Continue home anastrozole. Can resume zoledronic acid injections every 6 months on discharge. Continue outpatient oncology follow-up. Total clinical time spent by myself addressing the patient's medical issues, reviewing all the data, and collaborating with patient's care team: 55 minutes. Charges/Coding Visit Charges Inpatient E&M: [id number] [id number]
[2024-03-18] MEDS: Haloperidol Lactate 5 MG/ML Vial 2 MG IV (14:52)
[2024-03-18] MEDS: proMETHazine 25 MG/ML Syringe 12.5 MG IM (14:52)
--- NOTE | 2024-03-18 15:00 | NURSING ---
Patient restless in bed stated I am leaving, you've gotta get me out of here. TRAILER TANK TRUCK DRIVER assisted patient to the chair with chair alarm on. Patient continuing to try to get up, pulled off roofer gypsum, confused and agitated, wanting to get dressed, this RN and TRAILER TANK TRUCK DRIVER assisted patient with getting up to walk in room, patient sat on BSC to attempt BM, unsuccessful. Patient became increasingly agitated, paranoid behaviors, kept looking in hallway and rambling things that didn't make sense. Attempted to reach Dr. Vanegas via cortext, called other floors, paged via drying unit felting machine operator. Dr. Vanegas called back 1440, gave med orders, code danyell at 1450 due to patient attempting to hit staff, bite staff, and refusing to get back in bed. Once more staff arrived for code danyell, safetly got patient back in bed, meds given, restraints x4 extremities applied, family at bedside.
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
[2024-03-19] VITALS (8 sets, daily range): BP systolic 142–171; BP diastolic 65–89; PULSE 77–93; RESP 13–24; TEMP 36.5–36.7; O2SAT 95–99; BMI 24.4; BMI 23.8
[2024-03-19] MEDS: Acetaminophen 325 MG Tablet 650 MG PO ×3 (02:41→10:17)
[2024-03-19 06:15] LABS: Absolute Lymphocyte Count 0.85 X10^3/uL (0.83-4.51); Absolute Neutrophil Count 7.8 X10^3/uL (2.0-7.7); Basophil# 0.03 X10^3/uL; Basophil% 0.3 % (0-1); Eosinophil# 0.09 X10^3/uL; Eosinophils% 0.9 % (0-5); Hematocrit 37.1 % (37-47); Hemoglobin 12.2 g/dL (12.0-15.0); Lymphocyte # 0.85 X10^3/ul (0.83-4.51); Lymphocyte % 8.7 % (19-41); Mean Corp Hgb Conc 32.9 g/dL (32-36); Mean Corpuscular Hgb 29.6 pg (27.0-32.0); Mean Platelet Vol. 9.1 fl (6.2-12.0); Monocyte# 0.93 X10^3/uL; Monocyte% 9.6 % (0-10); NRBC Flagged by Analyzer 0 % (0-5); Neutrophil % 80.3 % (47-70); Platelet Count 258 K/mm3 (150-450); RBC Distribution Width CV 12.4 % (11.6-14.6); RBC Distribution Width SD 40.7 fl (35.1-43.9); Red Blood Count 4.12 M/mm3 (4.2-5.4); White Blood Count 9.7 K/mm3 (4.4-11.0)
[2024-03-19 06:30] LABS: Anion Gap 8 (5-15); BUN 12 mg/dL (7-18); BUN/Creat Ratio 14.7 RATIO (10-20); Calcium,Total 9.5 mg/dL (8.5-10.1); Chloride 105 mmol/L (98-107); Creatinine, Serum 0.82 mg/dL (0.55-1.02); EST Glomerular Filtration Rate 72 mL/min (>60); Est Glom Filt Rate - Afr Amer 87 mL/min (>60); Estimated Creatinine Clearance 48.04 ml/min; Glucose 126 mg/dL (74-106); Potassium 3.4 mmol/L (3.5-5.1); Sodium Level 138 mmol/L (136-145)
--- NOTE | 2024-03-19 06:53 | NURSING ---
Pt becoming agitated and trying to get out bed and leave the room. Pt pulled off tele leads and is refusing to wear BP cuff and SpO2 monitor. Pt walked in halls with staff and is now back in her room after redirection and verbal deescalation. Tele, SpO2, and BP cuff off. Pt is in the chair, chair alarm is on.
[2024-03-19] MEDS: Anastrozole 1 MG TABLET PO (08:17)
[2024-03-19] MEDS: Sertraline 50 MG Tablet PO (08:17)
[2024-03-19] MEDS: Sertraline 50 MG Tablet 25 MG PO (08:17)
--- NOTE | 2024-03-19 08:42 | CASEMGMT ---
Social Work PHQ-9 will not be completed on this admission due to pt's dementia. LURDES Saenz
--- NOTE | 2024-03-19 09:24 | CASEMGMT ---
Addendum entered by Karina Beverly 03/19/24 12:29: Social Work SW spoke w/daughter just outside of the room in regard to palliative care. Daughter would like to think about it, SW let her know she can speak w/[facility] should she want palliative care for pt and they can also make the referral. Daughter also spoke w/SW about pt's code status. Daughter would like to change pt's code states to DNRCC-A. SW let physician know via text. Pt actually is discharged back to [place] today pending an xray. JASON asked for ICU staff to call SW on MS3 once they know the results of the xray. LURDES Saenz Addendum entered by Karina Beverly 03/19/24 12:12: Social Work [facility] called, they can take pt back when she is ready. Green sheet w/transport form placed on chart in anticipation of weekend discharge. LURDES Saenz Original Note: Social Work SW spoke w/daughter outside of the room. SW confirmed w/daughter plan will be to return to [place]. Updates sent via [facility], PT/OT pending at this time. SW will continue to follow. LURDES Saenz
[2024-03-19] MEDS: cycloBENZAPRine HCl 10 MG Tablet PO (10:17)
--- NOTE | 2024-03-19 10:46 | PN.NEURO_ITS ---
Objective Data Objective Data Vital Signs: Vital Signs Temp Pulse Resp BP Pulse Ox O2 Del Method 98.1 F 88 16 168/86 H 95 Room Air 03/19/24 09:00 03/19/24 09:00 03/19/24 09:00 03/19/24 09:00 03/19/24 09:00 03/19/24 09:00 Oxygen Delivery Method Room Air Weight: 62.9 kg Body Mass Index (BMI) 23.8 Intake & Output: Intake and Output for Last 24 Hours 03/17/24 03/18/24 03/19/24 23:59 23:59 23:59 Intake Total 1480 / 1480 240 / 240 Output Total 1999 / 1999 925 / 925 350 / 350 Balance -520 / -520 -685 / -685 -350 / -350 Lab / Micro Data 03/19/24 05:45 03/19/24 05:45 Labs: Laboratory Results - last 24 hr 03/19/24 05:45: WBC 9.7, RBC 4.12 L, Hgb 12.2, Hct 37.1, MCV 90.0, MCH 29.6, MCHC 32.9, RDW Std Deviation 40.7, RDW Coeff of Fabian 12.4, Plt Count 258, MPV 9.1, Immature Gran % (Auto) 0.200, Neut % (Auto) 80.3 H, Lymph % (Auto) 8.7 L, [place] % (Auto) 9.6, Eos % (Auto) 0.9, Baso % (Auto) 0.3, Absolute Neuts (auto) 7.8 H, Absolute Lymphs (auto) 0.85, Nucleated RBC % 0, Sodium 138, Potassium 3.4 L, Chloride 105, Carbon Dioxide 25.0, Anion Gap 8, BUN 12, Creatinine 0.82, Estim Creat Clear Calc 48.04, Est GFR (MDRD) Af Amer 87, Est GFR (MDRD) Non-Af 72, BUN/Creatinine Ratio 14.7, Glucose 126 H, Calcium 9.5 Radiography Diagnostic Testing: Radiology Impression Brain MRI 03/18/24 12:00 IMPRESSION: 1. No MRI evidence of acute or subacute ischemic infarct or acute intracranial abnormality 24 hours after IV thrombolytic administration. 2. Old lacunar cystic infarct in the left periventricular white matter and confluent chronic white matter ischemic changes in both cerebral hemispheres are unchanged. Electronically Signed: Josesito Diaz MD at 12:58 EDT , Physical Exam Const Orientation / Consciousness: awake, oriented to person and oriented to place HEENT normocephalic Eyes EOMs intact bilaterally Resp normal respiratory effort Neuro Neuro Narrative: Awake, alert Difficulty recalling the year Names simple objects but difficulty with complex objects and sentences Cranial nerves 2-12 intact Motor: 5/5 Sensation: intact Subject: Neurology Subjective VIJI AMANDA is a 78 year old F, who we are seeing in consultation today for advice on the management of stroke and related patient care. She is a 78 F with TIA, CVA, HTN, GERD, dementia, HEIDI, presents a 78 with worsening confusion, aphasia, and right-sided facial droop, right sided weakness concerning for stroke. Per further clarification, seizures were ruled out by CEEG. CT brain without contrast and CTA head/neck appeared stable from previous scans from 3 days ago. Given high concern for active stroke and known last well time, tenecteplase was administered. She was noticed to be nonsensical. Her speech and weakness have improved. She had similar TIA episode few days ago that had resolved and MRI was negative. Patient started noted during that hospitalization that patient was previously living at home alone and today recently moved her to [facility] about 2 months ago for worsening functional status at home and signs of cognitive impairment. EEG Results Procedure Details EEG Procedure Details: VIJI AMANDA is a 78 year old F with a past medical history of , who presents for evaluation of Electroencephalogram on DATE at TIME Assessment and Plan: Stroke Assessment/Plan VIJI AMANDA is a 78 F with a history of seizure disorder, TIA, CVA, HTN, GERD, dementia, HEIDI, presents a 78 with worsening confusion, aphasia, and right-sided facial droop, right sided weakness concerning for stroke. CT brain without contrast and CTA head/neck appeared stable from previous scans from 3 days ago. Given high concern for active stroke and known last well time, tenecteplase was administered. Her symptoms have improved. Not a MT candidate. Neurological examination shows improving aphasia, dysarthria. Her speech is not back to baseline. Neuroimaging shows CT brain without contrast and CTA head/neck appeared stable. MRI Brain negative. Suspected thrombolyzed stroke. Plan 1. Continue ASA 2. HTN: Aim normotension 3. 30 Day cardiac event monitor upon discharge 4. Recommend 30 min EEG as she still has speech deficits 5. PT,OT, evaluation 6. Stroke education 7. W/up for cognitive dysfunction as out patient. Can get Vitamin B12 level, folate if not done recently. Thanks for consult. Spent 40 minutes in evaluation of this patient.
--- NOTE | 2024-03-19 11:41 | PCM.TXEXTCAR ---
Diet Diet Order/Speech Therapy: 03/17/24 17:10 Diet: Cardiac - Heart Healthy Routine Orders/Code Status Suppository Type: Dulcolax 10mg Suppository Frequency: Daily PRN Code Status: DNRCC-A Therapies Extremity Affected:: Bilateral Lower Physical Therapy: Eval and Treat Occupational Therapy: Eval and Treat Speech Therapy: Eval and Treat Problem/Diagnosis (1) Acute CVA (cerebrovascular accident): Status: Acute Code(s): I63.9 - Cerebral infarction, unspecified (2) MICHELLE (acute kidney injury): Status: Acute Code(s): N17.9 - Acute kidney failure, unspecified Plan Patient is a 78-year-old female who presented [facility] ED on 03/17/2024 as a stroke alert. 1. Concern for CVA s/p TNK administration; recent hospitalization for TIA ? Admit under inpatient status to ICU. Through Freight Engineer and teleneurology consulted. Presented with altered mentation, expressive aphasia, right-sided weakness and reported right facial droop. Notably these symptoms were about identical to her symptoms on presentation for her TIA on 03/14. Stroke workup included MRI brain without contrast, echo, labs and all were unremarkable. Patient showed improvement and was discharged back to assisted living facility on 03/15. CT head imaging on this admission with similar findings to previous. However, given high NIHSS score decision was made in the ED to move forward with TNK administration. TNK was given at 11:13 AM on 03/17. Orders placed per stroke with TNK administration order set on admit. Bedrest for 24 hours. 03/18: Patient had MRI which does not show acute or subacute ischemic infarct or acute intracranial abnormality 24 hours after IV thrombolytic administration. Patient had acute change in mental status with confusion and agitation, loss of reality, paranoia. She has feeling that it is someone is going to hurt her. Yelling and wants her to take home. Code danyell was called. Soft restraint ordered. Most likely cause of acute mental status may be psychiatric manifestation with dementia with psychiatric manifestation, derealization, or dissociation or conversant disorder. 03/19: Aspirin resumed. Continue statin. Patient complaining of left buttock pain on walking which failed to be muscular pain on exam. As per the daughter she has a history of sciatica pain. No hip joint tenderness on exam. X-ray hip ordered. Patient acute change in mental status resolved. Probably acute encephalopathy from dementia/depression with psychiatric manifestation. 2. 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 Noted on CTA head/neck during previous hospitalization, which showed a focal aneurysmal dilation of the distal right internal carotid artery measuring 7 mm in diameter. Was suspected that this was an incidental finding and not related to her TIA presentation. CTA head/neck on this admission with the same finding. No inpatient needs; per neurology from prior admission, can follow-up outpatient for neurosurgical evaluation if patient desires. 03/19 follow-up vascular surgeon and neurologist. 3. MICHELLE ? Creatinine 1.74 on admit, baseline creatinine appears to be around 0.7. Creatinine notably was 0.74 on 03/15 (day of previous discharge). Suspect prerenal etiology from poor p.o. intake. IV fluids given on admission. Anderson catheter placed on admit as patient is bedrest after TNK administration. Monitor daily BMP and urine output. 03/18: Creatinine 1.0. MICHELLE resolved. 4. Mild hypokalemia ? Potassium 3.4 on admit. Notably presented with potassium 3.1 on previous hospitalization. Mag and Phos were normal at that time. Will replete potassium as needed while here. Chronic medical conditions: ? Hypertension: On home amlodipine, losartan and hydralazine. Home medications held on admit for permissive hypertension, restart when able. ? Depression/anxiety/insomnia: Stable. Continue home sertraline, hydroxyzine at night and trazodone at night as needed. ? History of breast cancer: Follows with Dr. Riley, last office visit in 09/2023. Diagnosed with stage I AAA invasive lobular carcinoma of left breast, ER/VT positive in 03/2023. S/p partial mastectomy in 04/2023. Stable. Continue home anastrozole. Can resume zoledronic acid injections every 6 months on discharge. Continue outpatient oncology follow-up. Total clinical time spent by myself addressing the patient's medical issues, reviewing all the data, and collaborating with patient's care team: 55 minutes. Allergies/Procedures Done in Hospital Allergies VIET Inhibitors Allergy (Unknown, Verified 10/14/23 14:31) Itching imipramine (From Tofranil) Allergy (Unknown, Verified 10/14/23 14:31) Vomiting NAUSEA naproxen (From Naprosyn) Adverse Reaction (Unknown, Verified 10/14/23 14:31) PT UNSURE OF REACTION ondansetron (From Zofran) Adverse Reaction (Unknown, Verified 10/14/23 14:31) Constipation zolpidem (From Ambien) Adverse Reaction (Unknown, Verified 10/14/23 14:31) Other SLEEP WALKING codeine Adverse Reaction (Verified 10/14/23 14:31) Other LIGHTHEADED Type of Care/Length of Stay Estimated LOS: Convalescent Care Less Than 30 days Type of Care Needed: Skilled Rehab Potential: Good Prognosis: Good Additional Orders/Day of Discharge Day of Discharge: 03/19/24 Dietary and Speech Recommendations Dietitian Recommendations/Changes: Continue cardiac/heart healthy diet to manage medical conditions. Will offer ONS as needed if PO established suboptimal at meals. Speech Linguistic Eval Summary: Orientation: Oriented to self (name, ), current month. Disoriented to age (36-37yo), year and place despite logical cueing. Attn/ Mental Control: Able to count from 1-20, 03/28 TYSHAWN, 09/02 JD w/ TOWER OBSERVER initiating task d/t poor comprehension. Auditory comprehension: Able to answer simple and complex Y/N's w/ 80% acc. Able to follow 1 step commands w/ 100% acc x5. Increased complexity to 2 steps w/ 100% acc x3. Verbal Expression: Able to complete confrontation naming w/ 80% acc w/ some paraphasias observed re: spoon/straw, sunglasses/eye glasses. Decreased responsive and generative naming. Responsive naming 50% x6 and able to name 2 items in concrete category w/ unlimited time. MRI came back signed during cognitive-linguistic assessment. No MRI evidence of acute or subacute ischemic infarct or acute intracranial abnormality 24 hours after IV thrombolytic administration. Differential diagnosis for cognitive-linguistic impairment/ dementia vs. CVA. At this time, no further acute cognitive-linguistic therapy warranted. Pt. would benefit from cognitive-linguistic assessment/ speech therapy when she returns to assisted living memory care unit. DC ST ORDER. Discharge Plan Admission Admit Date/Time: 03/17/24 12:51 Primary Reason for Your Visit: Stroke. Attending Provider: Santiago Vanegas Primary Care Provider: Ruthann Mcdowell NP Consulting Providers: Darien Morgan; Jose J Wing; Elyse Fierro; Karlene Shaw; Faye Luo; Ibrahima Gardner; Jannette Barahona; Uli Benson; Mieky Shea; Lizandro Hernandez; Tiffanie Valerio; Eitan Pulliam; Christine Lazcano; Ish Miranda; Shirleycolette Hobbs; Lenny Castillo; Mary Hines; Jem Acosta; Peggy Jovel; Cara Oh; Alvaro Stephens Instructions Additional Instructions / Restrictions: BP to be gradually titrated down to keep SBP between 130 to 150 mmHg in the next 2 to 3 days. 30-day event potline monitor approved by Dr. Rodney obrien mailroom supervisor. Discharge Orders/Prescriptions Prescriptions: Continued sertraline 50 mg tablet 50 mg PO DAILY Rx Instructions: TAKE ONE 50MG TABLET AND ONE 25MG TABLET BY MOUTH TOGETHER ONCE DAILY FOR A TOTAL DAILY DOSE OF 75MG. cyclobenzaprine 10 mg tablet 10 mg PO TID PRN (Reason: MUSCLE SPASMS ) atorvastatin 40 mg Tablet 40 mg PO QHS 90 Days Qty: 90 1RF aspirin 81 mg Tablet,Chewable 81 mg PO BREAKFAST 90 Days Qty: 90 1RF Patient Comments: NEW RX FILLED TWO DAYS AGO (03/15/2024) HERE AT [facility]. NURSE AT [facility] STATED THIS HAS NOT BEEN STARTED YET. hydroxyzine pamoate 25 mg capsule 25 mg PO Q6H PRN (Reason: ANXIETY ) hydroxyzine pamoate 25 mg capsule 25 mg PO QPM loperamide 2 mg capsule 2 mg PO Q4H PRN (Reason: LOOSE STOOL ) sertraline 25 mg tablet 25 mg PO DAILY Rx Instructions: TAKE ONE 50MG TABLET AND ONE 25MG TABLET BY MOUTH TOGETHER ONCE DAILY FOR A TOTAL DAILY DOSE OF 75MG. trazodone 50 mg tablet 50 mg PO QHS amlodipine 10 MG tablet 10 mg PO DAILY 30 Days Qty: 0 0RF Rx Instructions: Hold for SBP less than 120 mmHg hydralazine 50 MG tablet 50 mg PO BID Qty: 30 0RF Rx Instructions: Hold for SBP less than 130 mmHg losartan 100 mg tablet 100 mg PO DAILY 30 Days Qty: 0 0RF Rx Instructions: Hold for SBP less than 120 mmHg anastrozole 1 mg tablet 1 mg PO DAILY Qty: 90 3RF Other Ambulatory Orders: 30 Day Event Recorder Preventi (Routine) Timeframe: 1 Month Facility: [facility] - Location: Cardiovascular Services Ordered By: Dr. Santiago Vanegas Referrals / Follow Up: Allan Thomas MD [Med Staff - Active Staff] - Within 1 Month Charly Akhtar MD [Non-Staff -Ordering Privileges] - Within 1 Month Ruthann Mcdowell NP, LABOR OPERATOR-C [Primary Care Provider] - Disposition Disposition (needs filled in before D/C Order can be placed): [facility]
--- NOTE | 2024-03-19 11:45 | RAD_ITS ---
STUDY: X-RAY - PELVIS AND LEFT HIP REASON FOR EXAM: Female, 78 years old. Left sided buttock pain. TECHNIQUE: 3 views of the pelvis and left hip. COMPARISON: None. FINDINGS: There is a non-specific bowel gas pattern. Normal visualized soft tissue structures. Normal bilateral iliac wings, sacroiliac joints and visualized sacrum. Normal bilateral superior and inferior pubic rami. Normal pubic symphysis. Normal bilateral ischial tuberosities. There is partially visualized bilateral fusion hardware in the lower lumbar spine. Normal visualized femoral head. Normal acetabulum. Normal hip joint. There is no demonstrated acute fracture. RAD/HIP, UNI W/ Pelvis 2-3 Views IMPRESSION: Unremarkable x-ray examination of the pelvis and left hip. Electronically Signed: Tesfaye Jovel MD at 12:24 EDT ,
--- NOTE | 2024-03-19 12:25 | PCM.DC.SUM ---
Providers Date of Admission: 03/17/24 Date of Discharge: 03/19/24 Primary Care Physician: SRI Iverson Consultations 03/17/24 11:13 Consult: Lactation Coordinator / Pulmonary Medicine Routine Consulting Provider: [facility] Reason for Consult: stroke for thrombolytic administration EMERGENT Consult: No MD Notified: Yes Date Notified: 03/17/24 Time Notified: 11:13 Method of Notification: Text Comments:: Consult may be done in ED or ICU 03/17/24 14:11 Consult: Tele-Neurology Routine Consulting Provider: [facility] Reason for Consult: Acute Ischemic Stroke/TIA EMERGENT Consult: No MD Notified: Yes Date Notified: 03/17/24 Time Notified: 12:54 Method of Notification: Answering Service Nursing Unit Staff Notify [facility] of Tele-Neurology Consult: Yes Reason For Visit: CVA S/P TNK ADMINISTRATION Diagnosis Discharge Diagnosis (1) Acute CVA (cerebrovascular accident): Status: Acute Code(s): I63.9 - Cerebral infarction, unspecified (2) MICHELLE (acute kidney injury): Status: Acute Code(s): N17.9 - Acute kidney failure, unspecified Plan Patient is a 78-year-old female who presented [facility] ED on 03/17/2024 as a stroke alert. 1. Concern for CVA s/p TNK administration; recent hospitalization for TIA ? Admit under inpatient status to ICU. Lactation Coordinator and teleneurology consulted. Presented with altered mentation, expressive aphasia, right-sided weakness and reported right facial droop. Notably these symptoms were about identical to her symptoms on presentation for her TIA on 03/14. Stroke workup included MRI brain without contrast, echo, labs and all were unremarkable. Patient showed improvement and was discharged back to assisted living facility on 03/15. CT head imaging on this admission with similar findings to previous. However, given high NIHSS score decision was made in the ED to move forward with TNK administration. TNK was given at 11:13 AM on 03/17. Orders placed per stroke with TNK administration order set on admit. Bedrest for 24 hours. 03/18: Patient had MRI which does not show acute or subacute ischemic infarct or acute intracranial abnormality 24 hours after IV thrombolytic administration. Patient had acute change in mental status with confusion and agitation, loss of reality, paranoia. She has feeling that it is someone is going to hurt her. Yelling and wants her to take home. Code danyell was called. Soft restraint ordered. Most likely cause of acute mental status may be psychiatric manifestation with dementia with psychiatric manifestation, derealization, or dissociation or conversant disorder. 03/19: Aspirin resumed. Continue statin. Patient complaining of left buttock pain on walking which failed to be muscular pain on exam. As per the daughter she has a history of sciatica pain. No hip joint tenderness on exam. X-ray hip ordered and individually reviewed. Does not show any hip fracture. It is also officially reported unremarkable x-ray of pelvis and left hip. Patient acute change in mental status resolved. Probably acute encephalopathy from dementia/depression with psychiatric manifestation. Patient is discharged on aspirin, high intensity statin and gradually control of blood pressure to normotensive in 2 to 3 days. Follow-up with neurology and vascular surgery. Discharge on 30-day event monitor reported by Dr. Rodney obrien. Her daughter asked for changing the code to DNR CC arrest with no intubation. CODE STATUS changed 2. 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 Noted on CTA head/neck during previous hospitalization, which showed a focal aneurysmal dilation of the distal right internal carotid artery measuring 7 mm in diameter. Was suspected that this was an incidental finding and not related to her TIA presentation. CTA head/neck on this admission with the same finding. No inpatient needs; per neurology from prior admission, can follow-up outpatient for neurosurgical evaluation if patient desires. 03/19 follow-up vascular surgeon and neurologist. 3. MICHELLE ? Creatinine 1.74 on admit, baseline creatinine appears to be around 0.7. Creatinine notably was 0.74 on 03/15 (day of previous discharge). Suspect prerenal etiology from poor p.o. intake. IV fluids given on admission. Anderson catheter placed on admit as patient is bedrest after TNK administration. Monitor daily BMP and urine output. 03/18: Creatinine 1.0. MICHELLE resolved. 4. Mild hypokalemia ? Potassium 3.4 on admit. Notably presented with potassium 3.1 on previous hospitalization. Mag and Phos were normal at that time. Will replete potassium as needed while here. Chronic medical conditions: ? Hypertension: On home amlodipine, losartan and hydralazine. Home medications held on admit for permissive hypertension, restart when able. ? Depression/anxiety/insomnia: Stable. Continue home sertraline, hydroxyzine at night and trazodone at night as needed. ? History of breast cancer: Follows with Dr. Riley, last office visit in 09/2023. Diagnosed with stage I AAA invasive lobular carcinoma of left breast, ER/AK positive in 03/2023. S/p partial mastectomy in 04/2023. Stable. Continue home anastrozole. Can resume zoledronic acid injections every 6 months on discharge. Continue outpatient oncology follow-up. Discharge medication reconciliation done. Discharge follow-up instructions completed. Discharge process discussed with the patient and all questions were answered to patient's satisfaction. Follow with PCP in 1 to 2 weeks Total time spent, exact 35 minutes on discharge meds reconciliation, examination, coordination of care with nurses and ancillary staff, review of imaging and blood test and discussion with the patient on follow-up instructions. Medications at Discharge Home Medications sertraline 50 mg tablet 50 mg PO DAILY DEPRESSION 10/14/23 anastrozole 1 mg tablet 1 mg PO DAILY BREAST CANCER #90 TABLETS 12/01/23 cyclobenzaprine 10 mg tablet 10 mg PO TID PRN MUSCLE SPASMS 03/14/24 aspirin 81 mg chewable tablet 81 mg PO BREAKFAST 90 days #90 tabs 03/15/24 atorvastatin 40 mg tablet 40 mg PO QHS CHOLESTEROL 90 days #90 tabs 03/15/24 hydroxyzine pamoate 25 mg capsule 25 mg PO Q6H PRN ANXIETY 03/17/24 hydroxyzine pamoate 25 mg capsule 25 mg PO QPM ANXIETY 03/17/24 loperamide 2 mg capsule 2 mg PO Q4H PRN LOOSE STOOL 03/17/24 sertraline 25 mg tablet 25 mg PO DAILY DEPRESSION 03/17/24 trazodone 50 mg tablet 50 mg PO QHS DEPRESSION 03/17/24 amlodipine 10 mg tablet 10 mg PO DAILY BLOOD PRESSURE 30 days #0 tabs 03/19/24 hydralazine 50 mg tablet 50 mg PO BID BLOOD PRESSURE #30 tabs 03/19/24 losartan 100 mg tablet 100 mg PO DAILY BLOOD PRESSURE 30 days #0 tabs 03/19/24 Physical Exam Narrative Seen and examined. Patient is more quiet and cognizant. Following simple commands. Not agitated or aggressive. Complain of left hip buttock region muscle pain on walking. Physical exam General: Awake but agitated. Disoriented. HEENT: Atraumatic, PERRLA, EOMI, Normocephalic Oral: No Gingival or Mucosal Lesions/ Ulcerations Neck: Supple, No JVD, Negative Carotid Bruits Chest wall/Lungs: Air entry diminished in bilateral lung bases. No crepitation/rhonchi Cardiovascular: Regular rate, Regular Rhythm, Normal S1, Normal S2, No M/G/R Abdomen: Bowel Sounds Present, Soft, Non Tender, Non-Distended : No dysuria. No renal angle tenderness. No suprapubic tenderness. Extremities: No edema, Capillary Refill Less than 3 Seconds Skin: No rashes, No breakdown Musculoskeletal: No hip joint tenderness. Mild muscle tenderness of back/left gluteal muscle region. No Tenderness to Palpation of other joints or Extremities Neurological: Cranial nerves II-XII grossly intact, DTR 2+/4. Nonfocal exam. Psych/Mental Status: Calm and quiet. Weight / BMI Weight Weight: 138 lb 10.732 oz Body Mass Index (BMI) 23.8 ABG / Lab / Microbiology Data 03/19/24 05:45 03/19/24 05:45 Laboratory: Laboratory Results - last 24 hr 03/19/24 05:45: WBC 9.7, RBC 4.12 L, Hgb 12.2, Hct 37.1, MCV 90.0, MCH 29.6, MCHC 32.9, RDW Std Deviation 40.7, RDW Coeff of Fabian 12.4, Plt Count 258, MPV 9.1, Immature Gran % (Auto) 0.200, Neut % (Auto) 80.3 H, Lymph % (Auto) 8.7 L, [place] % (Auto) 9.6, Eos % (Auto) 0.9, Baso % (Auto) 0.3, Absolute Neuts (auto) 7.8 H, Absolute Lymphs (auto) 0.85, Nucleated RBC % 0, Sodium 138, Potassium 3.4 L, Chloride 105, Carbon Dioxide 25.0, Anion Gap 8, BUN 12, Creatinine 0.82, Estim Creat Clear Calc 48.04, Est GFR (MDRD) Af Amer 87, Est GFR (MDRD) Non-Af 72, BUN/Creatinine Ratio 14.7, Glucose 126 H, Calcium 9.5 Radiography Diagnostic Testing: Radiology Impression Brain MRI 03/18/24 12:00 IMPRESSION: 1. No MRI evidence of acute or subacute ischemic infarct or acute intracranial abnormality 24 hours after IV thrombolytic administration. 2. Old lacunar cystic infarct in the left periventricular white matter and confluent chronic white matter ischemic changes in both cerebral hemispheres are unchanged. Electronically Signed: Josesito Diaz MD at 12:58 EDT , Hip/Pelvis X-Ray 03/19/24 11:45 IMPRESSION: Unremarkable x-ray examination of the pelvis and left hip. Electronically Signed: Tesfaye Jovel MD at 12:24 EDT , Meaningful Use Info Meaningful Use Meaningful Use Diagnoses (Choose all that apply): Ischemic CVA CVA Therapy Assessed for PT,OT and/or ST?: Yes Ischemic Stroke Antithrombotic order at d/c?: Yes Dx of Atrial fib/flutter?: No Statin Dosing Therapy Reference: STATIN DOSE THERAPY REFERENCE: * Patients > 75 years receive moderate or high dose statin therapy. * Patients 75 years or YOUNGER should receive HIGH intensity statin dose unless contraindicated. You will be required to document reason for non-treatment if statin daily dose does not meet guidelines. HIGH DOSE STATIN THERAPY DAILY Atorvastatin > than or = to 40 mg Rosuvastatin > than or = to 20 mg Amlodipine + Atorvastatin > than or = to 2.5/40 mg Ezetimibe + Simvastatin 10/80 mg Simvastatin 80mg Statins at discharge?: Yes Primary Dx Acute Ischemic CVA?: Yes Discharge Plan Admission Admit Date/Time: 03/17/24 12:51 Primary Reason for Your Visit: Stroke. Attending Provider: Santiago Vanegas Primary Care Provider: Ruthann Mcdowell NP Consulting Providers: Darien Morgan; Jose J Wing; Elyse Fierro; Karlene Shaw; Faye Luo; Ibrahima Gardner; Jannette Barahona; Uli Benson; Mikey Shea; Lizandro Hernandez; Tiffanie Valerio; Eitan Pulliam; Christine Lazcano; Ish Miranda; Sarah Watson; Lenny Castillo; Mary Hines; Jem Acosta; Peggy Jovel; Cara Oh; Alvaro Stephens Instructions Additional Instructions / Restrictions: BP to be gradually titrated down to keep SBP between 130 to 150 mmHg in the next 2 to 3 days. 30-day event monitoring manager approved by Dr. Rdoney obrien postal worker. Discharge Orders/Prescriptions Prescriptions: Continued sertraline 50 mg tablet 50 mg PO DAILY Rx Instructions: TAKE ONE 50MG TABLET AND ONE 25MG TABLET BY MOUTH TOGETHER ONCE DAILY FOR A TOTAL DAILY DOSE OF 75MG. cyclobenzaprine 10 mg tablet 10 mg PO TID PRN (Reason: MUSCLE SPASMS ) atorvastatin 40 mg Tablet 40 mg PO QHS 90 Days Qty: 90 1RF aspirin 81 mg Tablet,Chewable 81 mg PO BREAKFAST 90 Days Qty: 90 1RF Patient Comments: NEW RX FILLED TWO DAYS AGO (03/15/2024) HERE AT [facility]. NURSE AT [facility] STATED THIS HAS NOT BEEN STARTED YET. hydroxyzine pamoate 25 mg capsule 25 mg PO Q6H PRN (Reason: ANXIETY ) hydroxyzine pamoate 25 mg capsule 25 mg PO QPM loperamide 2 mg capsule 2 mg PO Q4H PRN (Reason: LOOSE STOOL ) sertraline 25 mg tablet 25 mg PO DAILY Rx Instructions: TAKE ONE 50MG TABLET AND ONE 25MG TABLET BY MOUTH TOGETHER ONCE DAILY FOR A TOTAL DAILY DOSE OF 75MG. trazodone 50 mg tablet 50 mg PO QHS amlodipine 10 MG tablet 10 mg PO DAILY 30 Days Qty: 0 0RF Rx Instructions: Hold for SBP less than 120 mmHg hydralazine 50 MG tablet 50 mg PO BID Qty: 30 0RF Rx Instructions: Hold for SBP less than 130 mmHg losartan 100 mg tablet 100 mg PO DAILY 30 Days Qty: 0 0RF Rx Instructions: Hold for SBP less than 120 mmHg anastrozole 1 mg tablet 1 mg PO DAILY Qty: 90 3RF Other Ambulatory Orders: 30 Day Event Recorder Preventi (Routine) Timeframe: 1 Month Facility: [facility] - Location: Cardiovascular Services Ordered By: Dr. Santiago Vanegas Referrals / Follow Up: Allan Thomas MD [Med Staff - Active Staff] - Within 1 Month Charly Akhtar MD [Non-Staff -Ordering Privileges] - Within 1 Month Ruthann Mcdowell NP, CENTRAL OFFICE EQUIPMENT INSTALLER-C [Primary Care Provider] - Disposition Disposition (needs filled in before D/C Order can be placed): [facility] Facility Charges/Coding Visit Charges Inpatient E&M: 94328 Disch Hosp >30min
--- NOTE | 2024-03-19 12:32 | CASEMGMT ---
Discharge Planning Therapy evals faxed to [facility] Attn: Deepa as well as a note that patient will return today. Fax confirmation rec'd. Marquita Melchor DC Planning Asst.
== END 2024-03-19 13:15 | DRG 62 ==
LOC: ED 12:42 → ICU 03-18 06:44
PROVIDERS: Admitting Provider Hospitalist; Emergency Provider Student in an Organized Health Care Education/Training Program; PCP Nurse Practitioner Primary Care; Visit Provider Internal Medicine
DX: I63.9 Cerebral infarction, unspecified (principal); N17.9 Acute kidney failure, unspecified; G81.91 Hemiplegia, unspecified affecting right dominant side; I67.1 Cerebral aneurysm, nonruptured; F32.A Depression, unspecified; I10 Essential (primary) hypertension; E78.00 Pure hypercholesterolemia, unspecified; E87.6 Hypokalemia; F41.0 Panic disorder [episodic paroxysmal anxiety]; Z79.1 Long term (current) use of non-steroidal anti-inflammatories (NSAID); Z85.3 Personal history of malignant neoplasm of breast; G47.00 Insomnia, unspecified; R29.728 NIHSS score 28
CPT/HCPCS: 51702; 70450; 70496; 70498; 70551; 71045; 73502; 80048; 80061; 83036; 83735; 84100; 84443; 84484; 85025; 85027; 85610; 85730; 92523; 92610; 93005; 93306; 94762; 97162; 97166; 97802; 99221; 99252; 99285; J3101; J7120; Q9967; A4216; G0378; G0463

== ENCOUNTER 2024-03-19 21:46 | Emergency (ER) | payer MEDICARE, OTHER, SELFPAY ==
[2024-03-19 21:47] VITALS: BP 197/85; PULSE 102; RESP 16; TEMP 36.9; O2SAT 100; O2SAT 98; BMI 24.5
--- NOTE | 2024-03-19 22:21 | CT_ITS ---
INDICATION: FALL EXAMINATION: CT CERVICAL SPINE - CT Spine Cervical W/O Contrast Injection TECHNIQUE: Helically acquired images were obtained of the cervical spine. 2D reformatted images were reviewed. The protocol utilizes one or more of the following dose reduction techniques: automated exposure control, adjustment of mA and/or kV according to patient size,and/or use of iterative reconstruction technique. IV Contrast dosage and agent: None. RADIATION DOSAGE (If Supplied By Facility): CTDIvol = ( 13.44 ) mGy, DLP = ( 281.18 ) mGycm COMPARISON: FINDINGS: ALIGNMENT: Minimal anterior subluxation of C7 on T1. Straightening of the normal curvature. MINERALIZATION: Normal. VERTEBRAL BODIES: No fracture or acute abnormality. DISC SPACES: Disc space narrowing with osteophytes most pronounced C4-C6. POSTERIOR ELEMENTS: Facet arthropathy at most levels. SPINAL CANAL: Mild decreased AP diameter secondary to posterior disc osteophytes, most pronounced at C4-5 and C5-6. PARASPINAL SOFT TISSUES: Unremarkable. Carotid arterial calcifications bilaterally. OTHER: Reticular changes in the lung apices with apical pleural thickening bilaterally likely chronic scarring. Small 0.5 cm nodule left lobe of thyroid gland, no specific follow-up needed. CT/Spine Cervical without Contras IMPRESSION: No evidence of fracture or traumatic subluxation. Minimal anterolisthesis at C7-T1 likely secondary to the degenerative changes of the facets Degenerative changes and multilevel central canal stenosis. If there are any neurologic findings, MRI may be helpful for further evaluation. Electronically Signed: Vivian Huntley MD at 23:21 EDT ,
--- NOTE | 2024-03-19 22:21 | RAD_ITS ---
INDICATION: Left rib pain EXAMINATION/TECHNIQUE: X-RAY - XR Ribs Unilateral W/ PA Chest Min 3 Views COMPARISON: Chest x-ray 03/17/2024 FINDINGS: SOFT TISSUES: No soft tissue swelling or gas. BONES: No displaced fracture. No sclerotic or destructive changes observed. VISUALIZED LUNGS: Clear. No pneumothorax. RAD/Ribs Uni Min 3V w/PA Chest IMPRESSION: No acute findings. Electronically Signed: Terrance Montez MD at 23:16 EDT ,
--- NOTE | 2024-03-19 22:21 | CT_ITS ---
INDICATION: FALL EXAMINATION: CT BRAIN - CT Head or Brain W/O Contrast Injection TECHNIQUE: Multiple axial images were obtained of the head without intravenous contrast. The protocol utilizes one or more of the following dose reduction techniques: automated exposure control, adjustment of mA and/or kV according to patient size,and/or use of iterative reconstruction technique. IV Contrast dosage and agent: None. RADIATION DOSAGE (If Supplied By Facility): CTDIvol = ( 44.99 ) mGy, DLP = ( 796.11 ) mGycm COMPARISON: CT head 03/14/2024 FINDINGS: BRAIN: No acute bleed. No edema. Focus of decreased attenuation in the left basal ganglia likely old lacunar infarct, unchanged compared with prior. Decreased attenuation in the periventricular white matter bilaterally. Beatty-white matter differentiation is maintained. Arterial calcifications. VENTRICLES AND SULCI: Not dilated. EXTRA-AXIAL: No hemorrhage, fluid collection, or mass. CALVARIUM / SKULL BASE: Unremarkable. FACE/SINUSES: Unremarkable.. SOFT TISSUES: Unremarkable. CT/Brain/Head without Contrast IMPRESSION: No acute abnormality. Chronic microvascular ischemic disease Electronically Signed: Vivian Huntley MD at 23:16 EDT ,
--- NOTE | 2024-03-19 22:28 | EDS_ITS ---
HPI History of Present Illness Chief Complaint: Fall Informant: patient, family and SNF Narrative Narrative: Patient is a 78-year-old female who was recently admitted to the hospital secondary to an acute CVA. She was discharged from the hospital today after her stroke and went to a long term. Reportedly is sometime this evening she fell and struck the left side of her head. The patient does not remember falling and the fall was unwitnessed. There is swelling to the left side of the head as well as a laceration in this area and with concern for underlying trauma/brain bleed she was sent back into the ER for evaluation. [facility] Medical History Encounter for education Breast cancer, left breast Seizure disorder Stroke Vaginal itching Ulcerative colitis Sleep apnea Hypercholesteremia MVP (mitral valve prolapse) Low back pain Left hip pain Insomnia IBS (irritable bowel syndrome) Hypokalemia HTN (hypertension) Panic attacks GERD (gastroesophageal reflux disease) Expressive aphasia Eczema Dermatitis Depression Dementia Chronic osteoarthritis Chronic neck pain Chest wall pain Blepharitis of right eye Back pain Atrophic vaginitis Arthritis Anxiety Abdominal pain Amnesia Home Medications ?Medication ?Instructions ?Recorded ?Last Taken ?Type sertraline 50 mg tablet 50 mg PO DAILY DEPRESSION 10/14/23 03/17/24 History anastrozole 1 mg tablet 1 mg PO DAILY BREAST CANCER #90 12/01/23 03/17/24 Rx TABLETS cyclobenzaprine 10 mg tablet 10 mg PO TID PRN MUSCLE SPASMS 03/14/24 03/14/24 History aspirin 81 mg chewable tablet 81 mg PO BREAKFAST 90 days #90 tabs 03/15/24 Unknown Rx atorvastatin 40 mg tablet 40 mg PO QHS CHOLESTEROL 90 days 03/15/24 03/16/24 Rx #90 tabs hydroxyzine pamoate 25 mg capsule 25 mg PO Q6H PRN ANXIETY 03/17/24 Unknown History hydroxyzine pamoate 25 mg capsule 25 mg PO QPM ANXIETY 03/17/24 03/16/24 History loperamide 2 mg capsule 2 mg PO Q4H PRN LOOSE STOOL 03/17/24 Unknown History sertraline 25 mg tablet 25 mg PO DAILY DEPRESSION 03/17/24 03/17/24 History trazodone 50 mg tablet 50 mg PO QHS DEPRESSION 03/17/24 03/16/24 History amlodipine 10 mg tablet 10 mg PO DAILY BLOOD PRESSURE 30 03/19/24 03/17/24 Rx days #0 tabs hydralazine 50 mg tablet 50 mg PO BID BLOOD PRESSURE #30 03/19/24 03/17/24 Rx tabs losartan 100 mg tablet 100 mg PO DAILY BLOOD PRESSURE 30 03/19/24 03/17/24 Rx days #0 tabs Allergy/AdvReac Type Severity Reaction Status Date / Time VIET Inhibitors Allergy Unknown Itching Verified 03/19/24 21:49 imipramine (From Tofranil) Allergy Unknown Vomiting Verified 03/19/24 21:49 naproxen (From Naprosyn) AdvReac Unknown PT UNSURE Verified 03/19/24 21:49 OF REACTION ondansetron (From Zofran) AdvReac Unknown Constipatio Verified 03/19/24 21:49 n zolpidem (From Ambien) AdvReac Unknown Other Verified 03/19/24 21:49 codeine AdvReac Other Verified 03/19/24 21:49 Family History Mother Cancer LUNG Sister Alzheimer disease Breast cancer Fibromyalgia Migraine CVA (cerebral vascular accident) Brother Alzheimer disease Cancer STOMACH Myocardial infarction Daughter Suicide Surgical History History of arthroscopic knee surgery History of appendectomy History of carpal tunnel release History of cholecystectomy History of lumbar fusion Social History Smoking Status: Never smoker alcohol intake: never substance use type: does not use ROS ROS ED Constitutional Constitutional ED: Denies chills or fever(s) Eyes Eyes: Denies blurry vision or change in vision ENT ENT ED: Denies sore throat Cardiovascular Cardiovascular: Denies chest pain, palpitations or racing heartbeat Respiratory/Chest Respiratory/Chest: Denies cough or dyspnea Gastrointestinal Gastrointestinal: Denies abdominal pain, diarrhea, nausea or vomiting Genitourinary Genitourinary ED: Denies dysuria Musculoskeletal Musculoskeletal: Denies back pain or neck pain Integumentary Reports other Details: Positive laceration Neurologic Neurologic: Denies headache(s) Hematologic/Lymphatic Hematologic/Lymphatic: Reports easy bleeding and easy bruising EXAM Physical Exam Const Vital Signs: 03/19/24 21:47 03/19/24 21:47 03/19/24 23:52 Temperature 98.4 F 97 F L Temperature Source Temporal Pulse Rate 102 H 104 H Respiratory Rate 16 18 Respiratory Effort Normal Non-Labored Respiratory Depth Normal Respiratory Pattern Normal Blood Pressure 197/85 H 172/71 H Blood Pressure Mean 122 104 Pulse Ox 98 100 95 Oxygen Delivery Method Room Air Room Air Positive well nourished and well developed General Appearance ED: well developed HEENT HEENT Narrative: Patient has a 4 x 6 hematoma to the left temporal/parietal portion of the scalp. In the center of this region is a 2.5 cm linear laceration that is subcutaneous layer deep with minimal ooze of blood and no foreign body. Otherwise no signs of depressed or basilar skull fracture No obvious tongue or cheek biting to suggest seizure activity Eyes PERRL and EOMs intact bilaterally Eyes Narrative: No hyphema noted Neck supple Neck Narrative: No bony deformity or step-off of the cervical spine no midline tenderness to palpation Chest Wall Chest Narrative: There is reproducible left anterior lateral chest wall pain on palpation rib regions 6-10 without obvious bony deformity or crepitance Resp normal respiratory effort and clear to auscultation bilaterally Resp Narrative: Breath sounds are diminished throughout but overall clear to auscultation w ithout signs of respiratory distress Cardio regular rate and regular rhythm GI normal to inspection, nondistended, normoactive bowel sounds, non-tender, non- distended and no masses Auscultation: normoactive bowel sounds Palpation: soft Back/Spine Back/Spine Narrative: No bony deformity or step-off of the thoracic or lumbar spine no midline tenderness to palpation Extremity Extremity Narrative: Pelvis is stable there is no external rotation or shortening of either extremity. There is pain on palpation along the left greater trochanter of the hip. Otherwise no obvious bony deformity or joint effusion noted Neuro oriented x3 and CN's II-XII intact bilaterally Neuro Narrative: GCS of 14 Patient is fatigued but will awake to voice and is appropriate with answering questions. There is no focal neurologic deficit noted Psych Psych Narrative: Patient has a depressed/irritated affect and is picking and choosing when to answer questions and follow instructions Skin Skin Narrative: Hematoma and laceration to the left parietal/temporal portion of the scalp as documented above MDM MDM MDM Narrative Medical decision making narrative: Patient arrived to the ER hypertensive but otherwise with stable vitals. She had an unwitnessed fall. Secondary to this we discussed potential cardiac or syncope workup but patient was just in the hospital for a CVA and had blood work done today. As she does have weakness from her recent CVA most likely reason for the fall is gait instability/muscle weakness. Therefore I will not check any type of laboratory studies at this time but will perform imaging to rule out skull fracture versus epidural or subdural hematoma cervical compression fracture rib fracture pneumothorax or pelvic fracture. Patient imaging studies revealed no acute signs of trauma and therefore her scalp laceration was closed as documented below and find that she is safe to return to the long term. Patient's left sided scalp wound was cleaned with chlorhexidine. It was anesth etized with 5 mL of 2% lidocaine with epinephrine and local fashion. The wound was copiously irrigated with normal saline. Then 7 gabriel were placed to bringing the wound together with good approximation. Patient tolerated procedure well without complication History & Record Review Discussion w/independent historian: Patient and Family Radiography Diagnostic Testing: Clinical Impression(s) from Imaging Studies Brain CT 03/19/24 22:21 IMPRESSION: No acute abnormality. Chronic microvascular ischemic disease Electronically Signed: Vivian Huntley MD at 23:16 EDT , Cervical Spine CT 03/19/24 22:21 IMPRESSION: No evidence of fracture or traumatic subluxation. Minimal anterolisthesis at C7-T1 likely secondary to the degenerative changes of the facets Degenerative changes and multilevel central canal stenosis. If there are any neurologic findings, MRI may be helpful for further evaluation. Electronically Signed: Vivian Huntley MD at 23:21 EDT , Ribs w/Chest X-Ray 03/19/24 22:21 IMPRESSION: No acute findings. Electronically Signed: Terrance Montez MD at 23:16 EDT , Hip/Pelvis X-Ray 03/19/24 22:35 IMPRESSION: No evidence of fracture. Electronically Signed: Vivian Huntley MD at 23:23 EDT Reading Location ID and State: [address] [place] [address] Tel , Service support , Left hip with 1 view pelvis x-ray as interpreted by the emergency medicine physician reveals age-related degenerative findings without acute fracture or dislocation Left rib x-ray with 1 view chest as interpreted by the emergency medicine physician reveals no acute rib fracture or pneumothorax or pleural effusion Discharge Plan Triage Chief Complaint: Fall ED Provider: Tyrone Coyle Dx/Rx/DC Orders Clinical Impression: Laceration of scalp, Contusion of rib on left side, Hypertension, History of cardioembolic cerebrovascular accident (CVA) Instructions: ED Laceration Scalp Stitches or Gabriel, ED Bruise, Rib Prescriptions: No Action sertraline 50 mg tablet 50 mg PO DAILY Rx Instructions: TAKE ONE 50MG TABLET AND ONE 25MG TABLET BY MOUTH TOGETHER ONCE DAILY FOR A TOTAL DAILY DOSE OF 75MG. cyclobenzaprine 10 mg tablet 10 mg PO TID PRN (Reason: MUSCLE SPASMS ) atorvastatin 40 mg Tablet 40 mg PO QHS 90 Days Qty: 90 1RF aspirin 81 mg Tablet,Chewable 81 mg PO BREAKFAST 90 Days Qty: 90 1RF Patient Comments: NEW RX FILLED TWO DAYS AGO (03/15/2024) HERE AT [facility]. NURSE AT [facility] STATED THIS HAS NOT BEEN STARTED YET. hydroxyzine pamoate 25 mg capsule 25 mg PO Q6H PRN (Reason: ANXIETY ) hydroxyzine pamoate 25 mg capsule 25 mg PO QPM loperamide 2 mg capsule 2 mg PO Q4H PRN (Reason: LOOSE STOOL ) sertraline 25 mg tablet 25 mg PO DAILY Rx Instructions: TAKE ONE 50MG TABLET AND ONE 25MG TABLET BY MOUTH TOGETHER ONCE DAILY FOR A TOTAL DAILY DOSE OF 75MG. trazodone 50 mg tablet 50 mg PO QHS amlodipine 10 MG tablet 10 mg PO DAILY 30 Days Qty: 0 0RF Rx Instructions: Hold for SBP less than 120 mmHg hydralazine 50 MG tablet 50 mg PO BID Qty: 30 0RF Rx Instructions: Hold for SBP less than 130 mmHg losartan 100 mg tablet 100 mg PO DAILY 30 Days Qty: 0 0RF Rx Instructions: Hold for SBP less than 120 mmHg anastrozole 1 mg tablet 1 mg PO DAILY Qty: 90 3RF Primary Care Provider: Ruthann Mcdowell NP Referrals: Ruthann Mcdowell NP, REHABILITATION THERAPY AIDE-C [Primary Care Provider] - Activity Restrictions/Additional Instructions: Please have your gabriel removed in 7-10 days and return to the ER if you have any further concerns Print Language: Citizen Of [place] Disposition Disposition: Home, Self Care Discharge Date/Time: 03/20/24 00:10
--- NOTE | 2024-03-19 22:35 | RAD_ITS ---
INDICATION: PAIN EXAMINATION/TECHNIQUE: X-RAY - XR Hip Unilateral with Pelvis when performed; 2-3 Views COMPARISON: Pelvis [x-rays earlier same date 03/19/2024. FINDINGS: AP pelvis, and 2 views left hip. No fracture demonstrated. The femoral heads are normal in contour. No dislocation at the hips. Surgical hardware in the lumbar spine. Degenerative changes at the lumbosacral junction. RAD/HIP, UNI W/ Pelvis 2-3 Views IMPRESSION: No evidence of fracture. Electronically Signed: Vivian Huntley MD at 23:23 EDT ,
[2024-03-19 23:52] VITALS: BP 172/71; PULSE 104; RESP 18; TEMP 36.1; O2SAT 95
== END 2024-03-20 00:10 | disposition home or self-care (01) ==
PROVIDERS: Emergency Provider Emergency Medicine; PCP Nurse Practitioner Primary Care; Visit Provider Emergency Medicine
DX: S01.01XA Laceration without foreign body of scalp, initial encounter (principal); S20.212A Contusion of left front wall of thorax, initial encounter; E78.00 Pure hypercholesterolemia, unspecified; Z86.73 Personal history of transient ischemic attack (TIA), and cerebral infarction without residual deficits; F32.A Depression, unspecified; I10 Essential (primary) hypertension; F41.9 Anxiety disorder, unspecified; Z79.899 Other long term (current) drug therapy; Z85.3 Personal history of malignant neoplasm of breast; L30.9 Dermatitis, unspecified; Z90.49 Acquired absence of other specified parts of digestive tract
CPT/HCPCS: 12001; 99282; 70450; 71101; 72125; 73502

== ENCOUNTER 2024-03-21 02:32 | Inpatient (IN) | payer MEDICARE, OTHER, SELFPAY ==
[2024-03-21] VITALS (10 sets, daily range): BP systolic 150–191; BP diastolic 58–88; PULSE 89–112; RESP 12–28; TEMP 36.3–38.2; O2SAT 94–99; BMI 24.1; BMI 23.1; BMI 25.7
--- NOTE | 2024-03-21 02:35 | RAD_ITS ---
INDICATION: Neuro deficit, acute, stroke suspected EXAMINATION/TECHNIQUE: X-RAY - XR Chest 1 View COMPARISON: 03/19/2024 chest radiograph Findings: Single frontal view of the chest. LUNG PARENCHYMA: No acute focal airspace disease or mass lesion. PLEURA: No pleural effusion. No pneumothorax. HEART/GREAT VESSELS: Cardiomediastinal silhouette is unremarkable. BONES: Osseous structures are unremarkable for age. Left axillary surgical clips. RAD/Chest 1 View IMPRESSION: Chest with no acute disease. Electronically Signed: Jose Armando Thomason MD at 5:05 EDT ,
--- NOTE | 2024-03-21 02:35 | EKG12_ITS ---
Test Reason : DYSRHYTHMIA Blood Pressure : / mmHG Vent. Rate : 097 BPM Atrial Rate : 097 BPM P-R Int : 128 ms QRS Dur : 084 ms QT Int : 366 ms P-R-T Axes : 009 005 036 degrees QTc Int : 464 ms Sinus rhythm with Premature atrial complexes Otherwise normal ECG Confirmed by FROYLAN LOMBARDO, CRISTIAN ([id number]), editor producer LISETTE ROMO ([id number]) on 03/22/2024 8:05:35 AM Referred By: Confirmed By:CRISTIAN GALEANO MD
--- NOTE | 2024-03-21 02:36 | CT_ITS ---
INDICATION: Neuro deficit, acute, stroke suspected EXAMINATION: CTA Head and Neck W/ Contrast Injection (and W/O Contrast Images if performed) TECHNIQUE: Noncontrast axial images were obtained of the brain. Subsequently, routine carotid CT angiogram protocol was performed with IV contrast. In addition, images were obtained of the [place]. Sagittal and coronal reconstructed images and 3D reconstructions were reviewed. Individualized dose optimization techniques were used for this CT. IV contrast dosage and agent: 100 mL of Isovue-370. COMPARISON: Noncontrast head CT from 03/19/2024 and CTA from 03/17/2024. FINDINGS: --CT BRAIN: BRAIN PARENCHYMA: No evidence of an acute infarct. No evidence of acute hemorrhage. No evidence of a mass. White matter changes consistent with moderate to severe chronic microvascular disease. Stable chronic left basal ganglia/dhaliwal radiata infarct. CSF SPACES: Moderate cerebral atrophy. CALVARIUM, SKULL BASE, PARANASAL SINUSES AND MASTOID AIR CELLS: No fracture. Mastoid air cells and visualized paranasal sinuses are unremarkable. ORBITS: The globes, extraocular muscles, optic nerves and retrobulbar fat are unremarkable. --CTA HEAD: No evidence of arterial flow limiting stenosis. No evidence of large vessel occlusion. No aneurysm. [place] anatomy is unremarkable. --CTA NECK: AORTIC ARCH AND BRANCHES: No significant stenosis of the visualized portions. RIGHT CCA: No significant stenosis. No dissection. RIGHT ICA: Atherosclerotic plaque at the proximal ICA with less than 50% stenosis. No dissection. LEFT CCA: No significant stenosis. No dissection. LEFT ICA: Atherosclerotic plaque at the proximal ICA with less than 50% stenosis. No dissection. RIGHT VERTEBRAL ARTERY: No significant stenosis. No dissection. LEFT VERTEBRAL ARTERY: No significant stenosis. No dissection. NECK SOFT TISSUES: Unremarkable. THYROID: Unremarkable. THORACIC INLET: Visualized lung apices are unremarkable. CT/CTA Head AND Neck W/ Contrast IMPRESSION: 1. No evidence of intracranial arterial flow-limiting stenosis, large vessel occlusion or aneurysm. 2. Atherosclerotic plaques in the proximal bilateral internal carotid arteries with less than 50% stenosis. No other evidence of flow-limiting stenosis or dissection of the bilateral carotid or vertebral arteries. 3. No acute intracranial abnormality. Electronically Signed: Alex Castro DO at 4:24 EDT ,
--- NOTE | 2024-03-21 02:39 | ED.VIS.STROK ---
HPI History of Present Illness Chief Complaint: Confusion Informant: EMS Narrative Narrative: Patient brought to the ER around 2:30 AM for right facial droop that assisted staff apparently noticed when they came on shift 3 hours ago or so. No report from assisted so details unknown. According to EMS, the last known well is unknown, they spoke to several staff members at the assisted and no one could give them any other information on timing or exact symptoms other than the fact that she had 2 other strokes in the past week for which she was seen here at this hospital. There is no CODE STATUS or advanced directive status sent with the patient; this area on her assisted paperwork is blank. She does have a prior diagnosis on her nursing and paperwork of aphasia. She also has a history of dementia that is advanced according to EMS. [facility] Medical History Encounter for education Breast cancer, left breast Seizure disorder Stroke Vaginal itching Ulcerative colitis Sleep apnea Hypercholesteremia MVP (mitral valve prolapse) Low back pain Left hip pain Insomnia IBS (irritable bowel syndrome) Hypokalemia HTN (hypertension) Panic attacks GERD (gastroesophageal reflux disease) Expressive aphasia Eczema Dermatitis Depression Dementia Chronic osteoarthritis Chronic neck pain Chest wall pain Blepharitis of right eye Back pain Atrophic vaginitis Arthritis Anxiety Abdominal pain Amnesia Home Medications ?Medication ?Instructions ?Recorded ?Last Taken ?Type sertraline 50 mg tablet 50 mg PO DAILY DEPRESSION 10/14/23 03/17/24 History anastrozole 1 mg tablet 1 mg PO DAILY BREAST CANCER #90 12/01/23 03/17/24 Rx TABLETS cyclobenzaprine 10 mg tablet 10 mg PO TID PRN MUSCLE SPASMS 03/14/24 03/14/24 History aspirin 81 mg chewable tablet 81 mg PO BREAKFAST 90 days #90 tabs 03/15/24 Unknown Rx atorvastatin 40 mg tablet 40 mg PO QHS CHOLESTEROL 90 days 03/15/24 03/16/24 Rx #90 tabs hydroxyzine pamoate 25 mg capsule 25 mg PO Q6H PRN ANXIETY 03/17/24 Unknown History hydroxyzine pamoate 25 mg capsule 25 mg PO QPM ANXIETY 03/17/24 03/16/24 History loperamide 2 mg capsule 2 mg PO Q4H PRN LOOSE STOOL 03/17/24 Unknown History sertraline 25 mg tablet 25 mg PO DAILY DEPRESSION 03/17/24 03/17/24 History trazodone 50 mg tablet 50 mg PO QHS DEPRESSION 03/17/24 03/16/24 History amlodipine 10 mg tablet 10 mg PO DAILY BLOOD PRESSURE 30 03/19/24 03/17/24 Rx days #0 tabs hydralazine 50 mg tablet 50 mg PO BID BLOOD PRESSURE #30 03/19/24 03/17/24 Rx tabs losartan 100 mg tablet 100 mg PO DAILY BLOOD PRESSURE 30 03/19/24 03/17/24 Rx days #0 tabs Allergy/AdvReac Type Severity Reaction Status Date / Time VIET Inhibitors Allergy Unknown Itching Verified 03/21/24 02:40 imipramine (From Tofranil) Allergy Unknown Vomiting Verified 03/21/24 02:40 naproxen (From Naprosyn) AdvReac Unknown PT UNSURE Verified 03/21/24 02:40 OF REACTION ondansetron (From Zofran) AdvReac Unknown Constipatio Verified 03/21/24 02:40 n zolpidem (From Ambien) AdvReac Unknown Other Verified 03/21/24 02:40 codeine AdvReac Other Verified 03/21/24 02:40 Family History Mother Cancer LUNG Sister Alzheimer disease Breast cancer Fibromyalgia Migraine CVA (cerebral vascular accident) Brother Alzheimer disease Cancer STOMACH Myocardial infarction Daughter Suicide Surgical History History of arthroscopic knee surgery History of appendectomy History of carpal tunnel release History of cholecystectomy History of lumbar fusion Social History housing: assisted Smoking Status: Never smoker alcohol intake: never substance use type: does not use ROS ROS ED Review of Systems ROS Unobtainable: due to mental status EXAM Physical Exam Const Vital Signs: 03/21/24 02:35 03/21/24 02:35 03/21/24 02:38 Temperature 97.7 F L Temperature Source Temporal Pulse Rate 97 94 Respiratory Rate 24 H 28 H Blood Pressure 172/82 H 172/82 H Blood Pressure Mean 112 112 Pulse Ox 96 98 Oxygen Delivery Method Room Air Room Air Room Air 03/21/24 03:05 03/21/24 03:30 03/21/24 04:00 Temperature Temperature Source Pulse Rate 95 100 112 H Respiratory Rate 24 H 24 H 19 H Blood Pressure 191/73 H 163/58 H 164/85 H Blood Pressure Mean 112 93 111 Pulse Ox 96 95 96 Oxygen Delivery Method Room Air Room Air Room Air 03/21/24 04:30 Temperature Temperature Source Pulse Rate 107 H Respiratory Rate 23 H Blood Pressure 186/88 H Blood Pressure Mean 120 Pulse Ox 97 Oxygen Delivery Method Room Air Positive well nourished and well developed General Appearance ED: well developed and NAD HEENT Reports moist mucous membranes normocephalic and atraumatic Eyes PERRL and EOMs intact bilaterally Neck full ROM and supple Resp normal respiratory effort and clear to auscultation bilaterally Cardio regular rate and regular rhythm GI non-tender and non-distended Auscultation: normoactive bowel sounds Palpation: soft Back/Spine no CVA tenderness Extremity normal to inspection General Extremety ED: Negative for edema, pulses abnormal or tenderness General Extremity: Negative for edema or pulses abnormal Neuro CN's II-XII intact bilaterally and no sensory deficits noted Neuro Narrative: see NIHSS Sensorium / Orientation: awake, alert and confused Motor Exam: strength abnormal Psych Attitude: agitated Skin no rashes or lesions noted and no wounds NIHSS NIHSS Initial: 1a Level of Consciousness: 0 1b LOC Questions (Score 2 if aphasic/stupor): 2 1c LOC Commands (Only score 1st attempt): 1 2 Best Gaze (If aphasic, use reflexive mvmts.): 0 3 Visual: 0 4 Facial Palsy: 2 5 Motor Arm Right (UN = amputation/fusion): 3 5 Motor Arm Left: 0 6 Motor Leg Right: 4 6 Motor Leg Left: 3 7 Limb ataxia (Only + if out of proportion): 0 8 Sensory (Aphasia/stupor=0 or 1, coma=2): 1 9 Best Language: 2 10 Dysarthria (mute, coma=2, intubated=UN): 0 11 Extinction and Inattention (only scored if +): 0 Total Score: 18 MDM MDM MDM Narrative Medical decision making narrative: Patient has lower right facial droop, she will not raise her eyebrow also not able to assess symmetry in her frontalis, but she does also have right upper and lower extremity weakness. Because of her mental status and aphasia, she has a high NIHSS. In reviewing recent hospital visits, it seems she initially had a TIA and then came back with more persistent right-sided weakness including right-sided facial droop and aphasia. She had an old left lacunar infarct, there was nothing acute seen on MRI and she had no LVO, she was followed by neurology, apparently was living at home about 2 months ago, was admitted to a assisted because of declining mental abilities and functional decline. Given all of this, we have no idea if she has an acute deficit different from when she was discharged from the hospital 2 days ago or not, and if she does we do not know her last known well, and for these reasons I am not calling a stroke alert but I will still perform CT and CT angiography of the head and neck. Upon lengthy review of several recent inpatient records, the last documented NIH was a nonfocal neurologic exam with an NIHSS of 2; this was the day of and before discharge 03/19 and 03/18, in the ED for this visit she had a very high NIHSS of about 28 and was given TNK. Hospitalist at prior admission documented discussion with POA daughter who desired to have the patient's CODE STATUS changed from full code to DNR CCA no intubation, which I made clear on our orders here. Here, CT/CTA images I reviewed and reports I agree with; negative for anything acute, old stroke seen. Given her high NIH now, and previously most recently documented low on age/nonlateralizing deficits, I feel she should be admitted for further evaluation. History & Record Review Additional record(s) reviewed:: Prior inpatient record Lab Data Attestation: I reviewed the patient's lab results. Labs: Laboratory Results - last 24 hr 03/21/24 02:27 WBC 11.7 H RBC 3.91 L Hgb 11.6 L Hct 35.0 L MCV 89.5 MCH 29.7 MCHC 33.1 RDW Std Deviation 41.5 RDW Coeff of Fabian 12.7 Plt Count 254 MPV 9.3 Immature Gran % (Auto) 0.300 Neut % (Auto) 82.1 H Lymph % (Auto) 6.5 L Walker % (Auto) 10.4 H Eos % (Auto) 0.3 Baso % (Auto) 0.4 Absolute Neuts (auto) 9.6 H Absolute Lymphs (auto) 0.76 L Nucleated RBC % 0 PT 13.3 INR 1.0 APTT 28.6 Sodium 140 Potassium 3.2 L Chloride 105 Carbon Dioxide 24.0 Anion Gap 11 BUN 20 H Creatinine 1.08 H Estim Creat Clear Calc 36.47 Est GFR (MDRD) Af Amer 63 Est GFR (MDRD) Non-Af 52 L BUN/Creatinine Ratio 18.5 Glucose 148 H Calcium 9.5 Troponin I High Sens 9 Radiography Diagnostic Testing: Clinical Impression(s) from Imaging Studies Head/Neck CTA 03/21/24 02:36 IMPRESSION: 1. No evidence of intracranial arterial flow-limiting stenosis, large vessel occlusion or aneurysm. 2. Atherosclerotic plaques in the proximal bilateral internal carotid arteries with less than 50% stenosis. No other evidence of flow-limiting stenosis or dissection of the bilateral carotid or vertebral arteries. 3. No acute intracranial abnormality. Electronically Signed: Alex Castro DO at 4:24 EDT , Chest x-ray 1 view on my interpretation shows no mediastinal widening or other acute abnormality. Rhythm Strip Rhythm Strip: Sinus Rhythm Rate: 95 Ectopy: PAC(s) EKG Initial EKG: Attestation: I personally reviewed and interpreted this EKG as follows: Interpretation: Sinus Rhythm and No Acute Injury Pattern Prior EKG tracings: available for review Prior: Unchanged Management Discussion w/another healthcare provider: Hospitalist Stroke Documentation Questions Stroke Team Activated: No (See above) Was Patient considered for Endovascular Intervention?: No-CTA negative, determined not to be an endovascular candidate IV Thrombolytic Administered: No (Timing unknown) Discharge Plan Dx/Rx/DC Orders Clinical Impression: Acute CVA (cerebrovascular accident) Disposition Disposition: Acute Care Hospital [facility]
[2024-03-21 02:46] LABS: Absolute Lymphocyte Count 0.76 X10^3/uL (0.83-4.51); Absolute Neutrophil Count 9.6 X10^3/uL (2.0-7.7); Basophil# 0.05 X10^3/uL; Basophil% 0.4 % (0-1); Eosinophil# 0.03 X10^3/uL; Eosinophils% 0.3 % (0-5); Hemoglobin 11.6 g/dL (12.0-15.0); Lymphocyte # 0.76 X10^3/ul (0.83-4.51); Lymphocyte % 6.5 % (19-41); Mean Corp Hgb Conc 33.1 g/dL (32-36); Mean Corpuscular Hgb 29.7 pg (27.0-32.0); Mean Corpuscular Volume 89.5 fL (81-99); Mean Platelet Vol. 9.3 fl (6.2-12.0); Monocyte# 1.22 X10^3/uL; Monocyte% 10.4 % (0-10); NRBC Flagged by Analyzer 0 % (0-5); Neutrophil # 9.64 X10^3/uL (2.7-7.7); Neutrophil % 82.1 % (47-70); Platelet Count 254 K/mm3 (150-450); RBC Distribution Width CV 12.7 % (11.6-14.6); RBC Distribution Width SD 41.5 fl (35.1-43.9); Red Blood Count 3.91 M/mm3 (4.2-5.4); White Blood Count 11.7 K/mm3 (4.4-11.0)
--- NOTE | 2024-03-21 02:49 | ED.RN ---
I ATTEMPTED TO CALL PATIENT CHARLES AZAMCHANDLER KELLY. THERE WAS NO ANSWER, THERE WAS A VOICEMAIL LEFT FOR THE DAUGHTER.
[2024-03-21 03:04] LABS: Prothrombin Time (Protime)PT. 13.3 SECONDS (11.7-14.9)
[2024-03-21 03:05] LABS: Partial Thromboplast Time 28.6 Seconds (24.1-36.2)
[2024-03-21 03:14] LABS: Anion Gap 11 (5-15); BUN 20 mg/dL (7-18); BUN/Creat Ratio 18.5 RATIO (10-20); Calcium,Total 9.5 mg/dL (8.5-10.1); Chloride 105 mmol/L (98-107); Creatinine, Serum 1.08 mg/dL (0.55-1.02); EST Glomerular Filtration Rate 52 mL/min (>60); Est Glom Filt Rate - Afr Amer 63 mL/min (>60); Estimated Creatinine Clearance 36.47 ml/min; Glucose 148 mg/dL (74-106); Potassium 3.2 mmol/L (3.5-5.1); Sodium Level 140 mmol/L (136-145); Troponin-I HS 9 pg/mL (3.0-54.0)
--- NOTE | 2024-03-21 04:51 | PCM.HP.STD ---
HPI - General General Date of Admission: 03/21/24 Date of Service: 03/21/24 Chief Complaint: Recurrent aphasia, right-sided weakness and reported right facial droop. HPI Narrative The patient is a 78 y/o F w/ PMHx: HTN, HLD, Hx L invasive lobular carcinoma breast cancer, Anxiety and Depression/Panic attacks, Hx CVA, recent serial presentations for concern of CVA, most recent admission 03/17/24-03/19/24 with treatment and evaluation with concern for CVA status post tenecteplase administration admitted to the ICU following tenecteplase with expressive aphasia, right-sided weakness and reported right facial droop with MRI of the brain with no acute evidence of any stroke with improvement and transition back to assisted living facility with presentation felt probably acute encephalopathy from dementia/depression with psychiatric manifestations hard to be cautious discharged with a 30-day event monitor in addition to acute kidney injury which resolved who now again re-presents to the [facility] ED on 03/21/24 with onset approximately 2:30 AM right facial droop at nursing facility when they went into evaluate with unclear last known well w/ ED evaluation upon arrival with aphasia, right-sided weakness and reported right facial droop. Most recent presentation 03/18/24 Brain MRI w/ old lacunar cystic infarct in the left periventricular white matter and confluent chronic white matter ischemic changes in both cerebral hemispheres are unchanged. Workup in the ED included T97.7, heart rate 97, BP 172/82, respiratory rate 24, 96% on room air, CBC with WC 11.7, hemoglobin 11.6, MCV 89.5, platelet 254 with left shift and lymphopenia, unremarkable coags, BMP with potassium 3.2, BUN/creatinine 20/1.08, GFR 52, glucose 148, troponin 9, chest x-ray with no acute cardiopulmonary findings, CTA head and neck with no evidence of any intracranial arterial flow-limiting stenosis with no large vessel occlusion or aneurysm, atherotic plaque in the proximal bilateral internal carotid arteries with less than 50% stenosis with no evidence of flow-limiting stenosis or dissection of the bilateral carotid or vertebral arteries with no acute intracranial findings, EKG with SR with. Upon most recent discharge patient with NIHSS 2 with aphasia reported and documented at that time only but difficult current presentation exam given agitation and difficulty obtaining accurate examination with NHISS 18 upon ED evaluation. NH stroke scale assessment in the ED per hospitalist physician conflicted as patient upset and agitated but she was able to lift and keep up her right side and her smile corrects and following discussions about safety of being admitted to further assess she became irritable and got out of bed able to ambulate and was grabbing at staff although voice continued to be aphasic which has been her baseline even at discharge most recently. ON LICENSE OF [facility] Medical History Encounter for education Breast cancer, left breast Seizure disorder Stroke Vaginal itching Ulcerative colitis Sleep apnea Hypercholesteremia MVP (mitral valve prolapse) Low back pain Left hip pain Insomnia IBS (irritable bowel syndrome) Hypokalemia HTN (hypertension) Panic attacks GERD (gastroesophageal reflux disease) Expressive aphasia Eczema Dermatitis Depression Dementia Chronic osteoarthritis Chronic neck pain Chest wall pain Blepharitis of right eye Back pain Atrophic vaginitis Arthritis Anxiety Abdominal pain Amnesia Home Medications ?Medication ?Instructions ?Recorded ?Last Taken ?Type sertraline 50 mg tablet 50 mg PO DAILY DEPRESSION 10/14/23 03/17/24 History anastrozole 1 mg tablet 1 mg PO DAILY BREAST CANCER #90 12/01/23 03/17/24 Rx TABLETS cyclobenzaprine 10 mg tablet 10 mg PO TID PRN MUSCLE SPASMS 03/14/24 03/14/24 History aspirin 81 mg chewable tablet 81 mg PO BREAKFAST 90 days #90 tabs 03/15/24 Unknown Rx atorvastatin 40 mg tablet 40 mg PO QHS CHOLESTEROL 90 days 03/15/24 03/16/24 Rx #90 tabs hydroxyzine pamoate 25 mg capsule 25 mg PO Q6H PRN ANXIETY 03/17/24 Unknown History hydroxyzine pamoate 25 mg capsule 25 mg PO QPM ANXIETY 03/17/24 03/16/24 History loperamide 2 mg capsule 2 mg PO Q4H PRN LOOSE STOOL 03/17/24 Unknown History sertraline 25 mg tablet 25 mg PO DAILY DEPRESSION 03/17/24 03/17/24 History trazodone 50 mg tablet 50 mg PO QHS DEPRESSION 03/17/24 03/16/24 History amlodipine 10 mg tablet 10 mg PO DAILY BLOOD PRESSURE 30 03/19/24 03/17/24 Rx days #0 tabs hydralazine 50 mg tablet 50 mg PO BID BLOOD PRESSURE #30 03/19/24 03/17/24 Rx tabs losartan 100 mg tablet 100 mg PO DAILY BLOOD PRESSURE 30 03/19/24 03/17/24 Rx days #0 tabs Allergy/AdvReac Type Severity Reaction Status Date / Time VIET Inhibitors Allergy Unknown Itching Verified 03/21/24 02:40 imipramine (From Tofranil) Allergy Unknown Vomiting Verified 03/21/24 02:40 naproxen (From Naprosyn) AdvReac Unknown PT UNSURE Verified 03/21/24 02:40 OF REACTION ondansetron (From Zofran) AdvReac Unknown Constipatio Verified 03/21/24 02:40 n zolpidem (From Ambien) AdvReac Unknown Other Verified 03/21/24 02:40 codeine AdvReac Other Verified 03/21/24 02:40 Family History Mother Cancer LUNG Sister Alzheimer disease Breast cancer Fibromyalgia Migraine CVA (cerebral vascular accident) Brother Alzheimer disease Cancer STOMACH Myocardial infarction Daughter Suicide Surgical History History of arthroscopic knee surgery History of appendectomy History of carpal tunnel release History of cholecystectomy History of lumbar fusion Social History (Updated 03/21/24 @ 04:[address] Tammy Clay MD) housing: skilled nursing Smoking Status: Never smoker alcohol intake: never substance use type: does not use ROS Review of Systems ROS Unobtainable: due to encephalopathy Vital Signs Vital Signs Vital Signs: 03/21/24 02:35 03/21/24 02:35 03/21/24 02:38 Temperature 97.7 F L Temperature Source Temporal Pulse Rate 97 94 Respiratory Rate 24 H 28 H Blood Pressure 172/82 H 172/82 H Blood Pressure Mean 112 112 Pulse Ox 96 98 Oxygen Delivery Method Room Air Room Air Room Air 03/21/24 03:05 03/21/24 03:30 03/21/24 04:00 Temperature Temperature Source Pulse Rate 95 100 112 H Respiratory Rate 24 H 24 H 19 H Blood Pressure 191/73 H 163/58 H 164/85 H Blood Pressure Mean 112 93 111 Pulse Ox 96 95 96 Oxygen Delivery Method Room Air Room Air Room Air 03/21/24 04:30 Temperature Temperature Source Pulse Rate 107 H Respiratory Rate 23 H Blood Pressure 186/88 H Blood Pressure Mean 120 Pulse Ox 97 Oxygen Delivery Method Room Air Weight Weight: 140 lb 10.479 oz Body Mass Index (BMI) 24.1 Physical Exam Narrative Physical Examination: General: Awake, alert, agitated, difficult to assess orientation, underlying cognitive impairment/dementia, initially laying in the ED bed but intermittently has been agitated during evaluation. Skin: Normal color, normal turgor, no icterus, no cyanosis, except occasional staged ecchymoses. HEENT: AT aside from recent fall with laceration intact, healing well/NC, EOMI, PERRLA, mildly dry MM, no carotid bruits or JVD noted, small corrects although difficult as patient having some issues following commands. Lungs: Mildly diminished, greater bases, appropriate effort, no rales, ronchi or wheezing. Heart: Mildly tachycardic with regular rhythm; no gallop, rub audible. Abdomen: Soft, NTTP, ND, distant normal BS, no appreciated HSM. Extremities: No cyanosis, clubbing, or edema. Neurological: Patient awake, alert, oriented as noted, agitated, cognitive function not baseline intact compared to prior but she has had decline over the last 2 months with cognitive impairment, concern for dementia; pupils equally reactive to light and accommodation, cranial nerves grossly normal aside from mild right-sided facial droop but does appear to correct when she correctly smiles and follows commands, moving all 4 extremities, difficult to assess sensation, difficult to have patient perform finger-nose and [id number] as she is agitated and has difficulty following simple commands, equivocal Babinski. Psychiatric: Affect appears agitated, irritable, does have underlying history of anxiety and depression. Results Lab / Micro Data 03/21/24 02:27 03/21/24 02:27 Labs: Laboratory Results - last 24 hr 03/21/24 02:27: WBC 11.7 H, RBC 3.91 L, Hgb 11.6 L, Hct 35.0 L, MCV 89.5, MCH 29.7, MCHC 33.1, RDW Std Deviation 41.5, RDW Coeff of Fabian 12.7, Plt Count 254, MPV 9.3, Immature Gran % (Auto) 0.300, Neut % (Auto) 82.1 H, Lymph % (Auto) 6.5 L, [place] % (Auto) 10.4 H, Eos % (Auto) 0.3, Baso % (Auto) 0.4, Absolute Neuts (auto) 9.6 H, Absolute Lymphs (auto) 0.76 L, Nucleated RBC % 0, PT 13.3, INR 1.0, APTT 28.6, Sodium 140, Potassium 3.2 L, Chloride 105, Carbon Dioxide 24.0, Anion Gap 11, BUN 20 H, Creatinine 1.08 H, Estim Creat Clear Calc 36.47, Est GFR (MDRD) Af Amer 63, Est GFR (MDRD) Non-Af 52 L, BUN/Creatinine Ratio 18.5, Glucose 148 H, Calcium 9.5, Troponin I High Sens 9 Rhythm Strip Rhythm Strip: Sinus Rhythm Rate: 95 Ectopy: PAC(s) Imaging Radiology Impression Head/Neck CTA 03/21/24 02:36 IMPRESSION: 1. No evidence of intracranial arterial flow-limiting stenosis, large vessel occlusion or aneurysm. 2. Atherosclerotic plaques in the proximal bilateral internal carotid arteries with less than 50% stenosis. No other evidence of flow-limiting stenosis or dissection of the bilateral carotid or vertebral arteries. 3. No acute intracranial abnormality. Electronically Signed: Alex Castro DO at 4:24 EDT , Assessment & Plan Assessment/Plan (1) Acute CVA (cerebrovascular accident): PLAN: Plan The patient is a 78 y/o F w/ PMHx: HTN, HLD, Hx L invasive lobular carcinoma breast cancer, Anxiety and Depression/Panic attacks, Hx CVA, recent serial presentations for concern of CVA, most recent admission 03/17/24-03/19/24 with treatment and evaluation with concern for CVA status post tenecteplase administration admitted to the ICU following tenecteplase with expressive aphasia, right-sided weakness and reported right facial droop with MRI of the brain with no acute evidence of any stroke with improvement and transition back to assisted living facility with presentation felt probably acute encephalopathy from dementia/depression with psychiatric manifestations hard to be cautious discharged with a 30-day event monitor in addition to acute kidney injury which resolved who now again re-presents to the [facility] ED on 03/21/24 with onset approximately 2:30 AM right facial droop at nursing facility when they went into evaluate with unclear last known well w/ ED evaluation upon arrival with aphasia, right-sided weakness and reported right facial droop. #1. Recurrent Acute Encephalopathy, right-sided facial droop, aphasia, right-sided hemiplegia concerning for possible CVA with history of previous CVA with documented findings on MRI imaging however difficult given recent presentation x 2 with MRI with no acute evidence of acute stroke, given recurrent symptoms concerning for possible seizure versus intracranial not identified findings on MRI as both MRIs recently were done without contrast with underlying breast CA history: Will admit to PCU, will obtain MRI Brain with and without contrast, will obtain EEG, will obtain ongoing neurology consultation, defer repeat echocardiogram as performed 03/14/2024 with noted mild concentric LVH, EF 65%, mild to TVI, aortic sclerosis with no stenosis, mild JOIE, bubble contrast study negative, PT/OT/Speech/Nutrition evaluation per protocol. Given recurrent symptoms will allow permissive HTN, maintain on asa, statin. Maintain on aspiration and fall precautions. Recent TSH, FLP obtained and not marked appearing, most recent hemoglobin A1c 03/14/2024 5.9% consistent with prediabetes. Will defer repeating all these labs as recently performed. Mag pending. Will continue neurology consultation. #2. Hypokalemia: Admission K+ 3.2, magnesium level requested, supplementation given, repeat level in AM. #3. Recent diagnosis prediabetes: Recent stroke presentation with 03/14/2024 hemoglobin A1c 5.9%, will maintain on ADA diet with Accu-Cheks with insulin sliding scale. #4. Known focal aneurysmal dilatation distal right ICA: Noted on CTA head and neck during prior previous presentation reportedly measuring 7 mm in diameter, similar on most recent presentation with neurology noting no acute inpatient needs with planned outpatient neurological and vascular follow-up. #5. Hypertension: Will maintain permissive hypertension pending repeat stroke workup as noted with. Agents per stroke protocol. #6. Hyperlipidemia: We will continue patient home statin therapy, defer repeat lipid panel given recent serial presentations. #7. Depression anxiety/insomnia/Panic attacks: We will continue patient home sertraline, hydroxyzine as well as trazodone, of note felt possibly contributory to patient's transient encephalopathy as noted last time with extensive workup with negative MRI of note. #8. Chronic Kidney Disease Stage unclear stage, possibly 2 versus 3 unclear subtype: Admission BUN/Cr 20/1.08, GFR 52, baseline renal function 0.8-1.0, GFR has ranged 50-80, most recently 03/19/2024 GFR 72, repeat BMP in AM. #9. History of left invasive lobular carcinoma breast cancer: Following with Dr. Dr. Riley, diagnosed with invasive lobular carcinoma of left breast, ER/MO positive in 03/2023, Status post partial mastectomy in 04/2023, consider remission, continued on anastrozole. #10. Chronic normocytic anemia: Admission hemoglobin 11.6, MCV 89.5, baseline hemoglobin 11-12, stable, continue to trend. #11. DVT prophylaxis: Lovenox. #12. CODE STATUS: Patient's daughter is her decision-maker and from recent presentation has been transitioned to DNR CCA no intubation per facility paperwork. Charges/Coding Visit Charges Inpatient E&M: 68972 Init Hosp L3
[2024-03-21 05:32] LABS: Magnesium 1.6 mg/dL (1.6-2.6)
[2024-03-21] MEDS: 0.9% Normal Saline (1000mL) 1,000 ML 100 ML IV (05:44)
--- NOTE | 2024-03-21 09:17 | CON.PCM.NE_ITS ---
Assessment and Plan: Stroke Assessment/Plan VIJI AMANDA is a 78 F with a history of VIJI AMANDA is a 78 F with a history of seizure disorder, TIA, CVA, HTN, GERD, dementia that has been progressive, HEIDI, anxiety/depression, panic attacks presents a 78 with worsening confusion, aphasia, and right-sided facial droop, right sided weakness concerning for stroke. she has presented with similar spells and fluctuation. Her speech did not return back to baseline. CT brain without contrast and CTA head/neck appeared stable from previous scans from 3 days ago. Neurological examination shows she is encephalopathic, difficulty naming family members, difficulty with commands, naming objects, aphasia, mild right facial droop. She moves all extremities. Neuroimaging shows CT brain without contrast and CTA head/neck appeared stable. Folate and TSH okay. B12 level pending. Given her recurrent ongoing symptoms less likely suggestive of stroke. Will need to r/o seizures, other causes of neurological dysfunction. Plan 1. Continue ASA 2. HTN: Aim normotension 3. 30 Day cardiac event monitor upon discharge if the secondary w/up is negative 4. Recommend 30 min EEG 5. MRI with contrast pending (h/o breast cancer) 5. PT,OT, evaluation 6. W/up for cognitive dysfunction Vitamin B12 level pending. Thanks for consult. Spent 40 minutes in evaluation of this patient. HPI Consult Data Date of Consult: 03/21/24 HPI Narrative HPI Narrative: VIJI AMANDA, is a 78 F who we are seeing in consultation today for advice on the management of stroke and related patient care. She is a 78 F with TIA, CVA, HTN, GERD, dementia, HEIDI, anxiety/depression, panic attacks who presents with worsening confusion, aphasia, and right-sided facial droop, right sided weakness concerning for stroke. She has memory dysfunction since the last 3 years and lives in an assisted living facility for the last 2 months. Since the last 1 week she has presented to the ER three times with aphasia, right facial droop and right sided weakness. Her recent admission was 03/17-03/19 when she was administered TNK. MRI negative for stroke. Suspected her symptoms from stroke vs encephalopathy from dementia in the presence of MICHELLE. These symptoms improved but she had residual aphasia. She presents to the ER with recurrent right facial droop, aphasia, confusion and her NIHSS in ER was high due to encephalopathy. CT brain without contrast and CTA head/neck appeared stable [facility] Medical History Encounter for education Breast cancer, left breast Seizure disorder Stroke Vaginal itching Ulcerative colitis Sleep apnea Hypercholesteremia MVP (mitral valve prolapse) Low back pain Left hip pain Insomnia IBS (irritable bowel syndrome) Hypokalemia HTN (hypertension) Panic attacks GERD (gastroesophageal reflux disease) Expressive aphasia Eczema Dermatitis Depression Dementia Chronic osteoarthritis Chronic neck pain Chest wall pain Blepharitis of right eye Back pain Atrophic vaginitis Arthritis Anxiety Abdominal pain Amnesia Home Medications ?Medication ?Instructions ?Recorded ?Last Taken ?Type sertraline 50 mg tablet 50 mg PO DAILY DEPRESSION 10/14/23 03/17/24 History anastrozole 1 mg tablet 1 mg PO DAILY BREAST CANCER #90 12/01/23 03/17/24 Rx TABLETS cyclobenzaprine 10 mg tablet 10 mg PO TID PRN MUSCLE SPASMS 03/14/24 03/14/24 History aspirin 81 mg chewable tablet 81 mg PO BREAKFAST 90 days #90 tabs 03/15/24 Unknown Rx atorvastatin 40 mg tablet 40 mg PO QHS CHOLESTEROL 90 days 03/15/24 03/16/24 Rx #90 tabs hydroxyzine pamoate 25 mg capsule 25 mg PO Q6H PRN ANXIETY 03/17/24 Unknown History hydroxyzine pamoate 25 mg capsule 25 mg PO QPM ANXIETY 03/17/24 03/16/24 History loperamide 2 mg capsule 2 mg PO Q4H PRN LOOSE STOOL 03/17/24 Unknown History sertraline 25 mg tablet 25 mg PO DAILY DEPRESSION 03/17/24 03/17/24 History trazodone 50 mg tablet 50 mg PO QHS DEPRESSION 03/17/24 03/16/24 History amlodipine 10 mg tablet 10 mg PO DAILY BLOOD PRESSURE 30 03/19/24 03/17/24 Rx days #0 tabs hydralazine 50 mg tablet 50 mg PO BID BLOOD PRESSURE #30 03/19/24 03/17/24 Rx tabs losartan 100 mg tablet 100 mg PO DAILY BLOOD PRESSURE 30 03/19/24 03/17/24 Rx days #0 tabs Allergy/AdvReac Type Severity Reaction Status Date / Time VIET Inhibitors Allergy Unknown Itching Verified 03/21/24 02:40 imipramine (From Tofranil) Allergy Unknown Vomiting Verified 03/21/24 02:40 naproxen (From Naprosyn) AdvReac Unknown PT UNSURE Verified 03/21/24 02:40 OF REACTION ondansetron (From Zofran) AdvReac Unknown Constipatio Verified 03/21/24 02:40 n zolpidem (From Ambien) AdvReac Unknown Other Verified 03/21/24 02:40 codeine AdvReac Other Verified 03/21/24 02:40 Family History Mother Cancer LUNG Sister Alzheimer disease Breast cancer Fibromyalgia Migraine CVA (cerebral vascular accident) Brother Alzheimer disease Cancer STOMACH Myocardial infarction Daughter Suicide Surgical History History of arthroscopic knee surgery History of appendectomy History of carpal tunnel release History of cholecystectomy History of lumbar fusion Social History (Updated 03/21/24 @ 04:[address] Tammy Clay MD) housing: [facility] Smoking Status: Never smoker alcohol intake: never substance use type: does not use Vital Signs Vital Signs Vital Signs: 03/21/24 02:35 03/21/24 02:35 03/21/24 02:38 Temperature 97.7 F L Temperature Source Temporal Pulse Rate 97 94 Respiratory Rate 24 H 28 H Blood Pressure 172/82 H 172/82 H Blood Pressure Mean 112 112 Blood Pressure Source Blood Pressure Position Blood Pressure Location Pulse Ox 96 98 Oxygen Delivery Method Room Air Room Air Room Air 03/21/24 03:05 03/21/24 03:30 03/21/24 04:00 Temperature Temperature Source Pulse Rate 95 100 112 H Respiratory Rate 24 H 24 H 19 H Blood Pressure 191/73 H 163/58 H 164/85 H Blood Pressure Mean 112 93 111 Blood Pressure Source Blood Pressure Position Blood Pressure Location Pulse Ox 96 95 96 Oxygen Delivery Method Room Air Room Air Room Air 03/21/24 04:30 03/21/24 05:13 03/21/24 05:58 Temperature 98.5 F 100.7 F H Temperature Source Oral Pulse Rate 107 H 109 H 103 H Respiratory Rate 23 H 23 H 18 Blood Pressure 186/88 H 157/76 H 181/77 H Blood Pressure Mean 120 103 111 Blood Pressure Source Monitor Blood Pressure Position Semi-Fowlers Blood Pressure Location Right Arm Pulse Ox 97 94 99 Oxygen Delivery Method Room Air Room Air 03/21/24 08:17 03/21/24 08:59 Temperature 99.4 F H Temperature Source Axillary Pulse Rate 89 Respiratory Rate 14 Blood Pressure 150/70 H Blood Pressure Mean 96 Blood Pressure Source Monitor Blood Pressure Position Left Lateral Blood Pressure Location Right Arm Pulse Ox 95 Oxygen Delivery Method Room Air Room Air Weight Weight: 61.3 kg Body Mass Index (BMI) 23.1 EEG Results Procedure Details EEG Procedure Details: VIJI AMANDA is a 78 year old F with a past medical history of , who presents for evaluation of Electroencephalogram on DATE at TIME NIHSS NIHSS Nursing Documentation NIHSS Nursing Documentation: NIHSS: Ischemic Stroke/TIA Start: 03/21/24 05:24 Text: For PCU Patients: NIH and Neuro Check every 4 Status: Active hours, PRN and with change in RN caregiver. Freq: [id number] Protocol: Activity Type Activity Date Activity User E-sign Co-sign Detail Recorded Client Recorded Date Recorded By Document 03/21/24 05:58 MB desktop 03/21/24 06:06 MB 03/21/24 05:58 NIH Stroke Scale [NIHSS] A score of 0 is normal or asymptomatic . Total possible score is 42. Inpatient: RN or Physician to activate a stroke alert for onset of new stroke symptoms or with NIHSS increase >/= 3 points. Following change in neurological status, NIHSS will be performed per physician order or more frequently PRN. -1a. Level of Consciousness Alert; keenly responsive -1b. LOC Questions Answers one question correctly. -1c. LOC Commands Performs both tasks correctly . -2. Best Gaze Normal -3. Visual No visual loss -4. Facial Palsy Minor paralysis (flattened nasolabial fold , asymmetry on smiling) -5a. Left Arm No drift; arm holds 90 (or 45 ) degrees for full 10 seconds -5b. Right Arm Some effort against gravity ; -6a. Left Leg No drift; leg holds 30-degree position for full 5 seconds -6b. Right Leg No effort against gravity ; leg falls to bed immediately -7. Limb Ataxia Absent -8. Sensory Normal; no sensory loss -9. Best Language Severe aphasia; -10. Dysarthria Mild-to- moderate dysarthria; -11. Extinction and Inattention No abnormality -Total 10 Query Text:A score of 0 is normal or asymptomatic. Total possible score is 42 . ED: Notify Physician for NIHSS increase by > / = 3 points. Inpatient: RN or Physician to activate a stroke alert for NIHSS increase of > / = 3 points. Coma Scale [Assess] -Eye Opening Spontaneous -Motor Obeys Commands -Verbal Oriented [Total] -Coma Scale Total 15 NIHSS 1a. Level of Consciousness: Alert; keenly responsive 1b. LOC Questions: Answers one question correctly. 1c. LOC Commands: Performs one task correctly. 2. Best Gaze: Normal 3. Visual: No visual loss 4. Facial Palsy: Minor paralysis (flattened nasolabial fold, asymmetry on smiling) 5a. Left Arm: No drift; arm holds 90 (or 45) degrees for full 10 seconds 5b. Right Arm: No drift; arm holds 90 (or 45) degrees for full 10 seconds 6a. Left Leg: No drift; leg holds 30-degree position for full 5 seconds 6b. Right Leg: No drift; leg holds 30-degree position for full 5 seconds 7. Limb Ataxia: Absent 8. Sensory: Normal; no sensory loss 9. Best Language: Severe aphasia; 10. Dysarthria: [id number] dysarthria; 11. Extinction and Inattention: No abnormality Total: 6 Physical Exam Const alert Orientation / Consciousness: disoriented Eyes EOMs intact bilaterally Resp normal respiratory effort Neuro Neuro Narrative: Awake, poorly cooperative, requires repeated stimulation to examine Tells her daughters name, difficulty telling other family members name Difficulty telling month Difficulty naming objects ? Right facial asymmetry Moves all extremities antigravity Difficulty to assess sensation and coordination Lab / Micro Data 03/21/24 02:27 03/21/24 02:27 Labs: Laboratory Results - last 24 hr 03/21/24 02:27: WBC 11.7 H, RBC 3.91 L, Hgb 11.6 L, Hct 35.0 L, MCV 89.5, MCH 29.7, MCHC 33.1, RDW Std Deviation 41.5, RDW Coeff of Fabian 12.7, Plt Count 254, MPV 9.3, Immature Gran % (Auto) 0.300, Neut % (Auto) 82.1 H, Lymph % (Auto) 6.5 L, [place] % (Auto) 10.4 H, Eos % (Auto) 0.3, Baso % (Auto) 0.4, Absolute Neuts (auto) 9.6 H, Absolute Lymphs (auto) 0.76 L, Nucleated RBC % 0, PT 13.3, INR 1.0, APTT 28.6, Sodium 140, Potassium 3.2 L, Chloride 105, Carbon Dioxide 24.0, Anion Gap 11, BUN 20 H, Creatinine 1.08 H, Estim Creat Clear Calc 36.47, Est GFR (MDRD) Af Amer 63, Est GFR (MDRD) Non-Af 52 L, BUN/Creatinine Ratio 18.5, G lucose 148 H, Calcium 9.5, Magnesium 1.6, Troponin I High Sens 9, Folate 16.60 Rhythm Strip Rhythm Strip: Sinus Rhythm Rate: 95 Ectopy: PAC(s) Imaging Radiology Impression Chest X-Ray 03/21/24 02:35 IMPRESSION: Chest with no acute disease. Electronically Signed: Jose Armando Thomason MD at 5:05 EDT , Head/Neck CTA 03/21/24 02:36 IMPRESSION: 1. No evidence of intracranial arterial flow-limiting stenosis, large vessel occlusion or aneurysm. 2. Atherosclerotic plaques in the proximal bilateral internal carotid arteries with less than 50% stenosis. No other evidence of flow-limiting stenosis or dissection of the bilateral carotid or vertebral arteries. 3. No acute intracranial abnormality. Electronically Signed: Alex Castro DO at 4:24 EDT , Active Medications Active Medications Active Medications: Current Medications Generic Name Dose Route Start Last Admin Trade Name Freq PRN Reason Stop Dose Admin Acetaminophen 650 mg 03/21/24 05:24 Acetaminophen 325 Mg Tablet PO Q4H PRN PRN Fever, pain 1-10/10 Al Hydroxide/Mg Hydroxide 30 ml 03/21/24 05:24 Mag Hydrox/Al Hydrox/Simeth 30 Ml Udc PO Q6H PRN PRN Gastric Burning Albuterol Sulfate 2.5 mg 03/21/24 05:24 Albuterol 2.5 Mg/3 Ml Vial.Neb. INHALATION Q2H PRN PRN Dyspnea, wheezing Anastrozole 1 mg 03/21/24 10:00 Anastrozole 1 Mg Tablet PO DAILY [facility] Aspirin 81 mg 03/21/24 08:00 Aspirin 81 Mg Tab.Chew PO BREAKFAST [facility] Atorvastatin Calcium 40 mg 03/21/24 22:00 Atorvastatin Calcium 40 Mg Tablet PO QHS [facility] Enoxaparin Sodium 40 mg 03/21/24 10:00 Enoxaparin 40 Mg/0.4 Ml Syringe SC DAILY [facility] Glucagon 1 mg 03/21/24 05:24 Glucagon 1 Mg/Ml Syringe IM X1 PRN HYPOGLYCEMIA Protocol Guaifenesin 20 ml 03/21/24 05:24 Guaifenesin 10 Ml Udc (200mg/10ml) PO Q4H PRN PRN COUGH Hydralazine HCl 5 mg 03/21/24 05:24 Hydralazine 20 Mg/Ml Vial IV 03/22/24 05:24 Q30M PRN maintain BP parameters with HR <60 Hydroxyzine Pamoate 25 mg 03/21/24 05:24 Hydroxyzine [place] 25 Mg Capsule PO Q6H PRN ANXIETY Hydroxyzine Pamoate 25 mg 03/21/24 21:00 Hydroxyzine [place] 25 Mg Capsule PO QPM [facility] Sodium Chloride 1,000 mls @ 100 mls/hr 03/21/24 05:24 03/21/24 05:44 IV 03/21/24 15:23 100 mls/hr .Q10H [facility] Administration Dextrose 250 mls @ 999 mls/hr 03/21/24 05:24 Dextrose 10%-Water IV .Q16M PRN HYPOGLYCEMIA Protocol Insulin Human Lispro 0 unit 03/21/24 07:00 Insulin Lispro 100 Unit/Ml Insuln.Pen SC ACHS [facility] Protocol Iopamidol 0 ml 03/21/24 02:45 03/21/24 06:14 Contrast Allergy Safety Check IV Not Given X1 [facility] Iopamidol 0 ml 03/21/24 05:24 03/21/24 06:14 Contrast Allergy Safety Check IV Not Given X1 [facility] Melatonin 3 mg 03/21/24 05:24 Melatonin 3 Mg Tablet PO QHS PRN PRN INSOMNIA Ondansetron HCl 4 mg 03/21/24 05:24 Ondansetron 4 Mg/2 Ml Vial IV Q8H PRN PRN NAUSEA/VOMITING Prochlorperazine Edisylate 5 mg 03/21/24 05:24 Prochlorperazine 10 Mg/2 Ml Vial IV Q4H PRN PRN Breakthrough Nausea/Vomiting Senna/Docusate Sodium 2 tablet 03/21/24 05:24 Senna/Docusate Sodium 1 Tablet PO BID PRN PRN Constipation Sertraline HCl 50 mg 03/21/24 10:00 Sertraline 50 Mg Tablet PO DAILY [facility] Sertraline HCl 25 mg 03/21/24 10:00 Sertraline 50 Mg Tablet PO DAILY [facility] Trazodone HCl 50 mg 03/21/24 22:00 Trazodone 50 Mg Tablet PO QHS [facility]
[2024-03-21] MEDS: hydrOXYzine PAM 25 MG Capsule PO (09:36)
[2024-03-21 09:40] LABS: Bedside Glucose 138 mg/dL (74-106)
[2024-03-21] MEDS: Potassium Chloride Oral Tablet 20 MEQ 40 MEQ PO (11:01)
[2024-03-21] MEDS: Aspirin 81 MG TAB.CHEW PO (11:01)
[2024-03-21] MEDS: Sertraline 50 MG Tablet 25 MG PO (12:05)
[2024-03-21] MEDS: Sertraline 50 MG Tablet PO (12:05)
[2024-03-21] MEDS: Anastrozole 1 MG TABLET PO (12:05)
[2024-03-21] MEDS: Insulin Lispro 100 UNIT/ML INSULN.PEN SC (12:05)
[2024-03-21] MEDS: Enoxaparin 40 MG/0.4 ML Syringe SC (12:05)
[2024-03-21 12:34] LABS: Bedside Glucose 173 mg/dL (74-106)
[2024-03-21] MEDS: Haloperidol Lactate 5 MG/ML Vial 2 MG IM (14:27)
[2024-03-21] MEDS: QUEtiapine 25 MG Tablet PO (18:34)
--- NOTE | 2024-03-21 22:54 | NURSING ---
Pt confused,noncompliant/resistive to care. Pt refused to take any medications, keep tele monitor and get blood sugar check. Attempted multiple times, pt continues to refuse. made aware.
[2024-03-22] VITALS (8 sets, daily range): BP systolic 154–188; BP diastolic 62–131; PULSE 77–91; RESP 11–16; TEMP 36.3–36.9; O2SAT 93–99; BMI 25.7; BMI 22.9
[2024-03-22 06:41] LABS: Absolute Lymphocyte Count 1.21 X10^3/uL (0.83-4.51); Absolute Neutrophil Count 6.6 X10^3/uL (2.0-7.7); Basophil# 0.05 X10^3/uL; Basophil% 0.5 % (0-1); Eosinophil# 0.07 X10^3/uL; Eosinophils% 0.8 % (0-5); Hematocrit 33.7 % (37-47); Hemoglobin 10.9 g/dL (12.0-15.0); Lymphocyte # 1.21 X10^3/ul (0.83-4.51); Lymphocyte % 13.2 % (19-41); Mean Corp Hgb Conc 32.3 g/dL (32-36); Mean Corpuscular Hgb 29.2 pg (27.0-32.0); Mean Corpuscular Volume 90.3 fL (81-99); Mean Platelet Vol. 9.9 fl (6.2-12.0); Monocyte# 1.24 X10^3/uL; Monocyte% 13.5 % (0-10); NRBC Flagged by Analyzer 0 % (0-5); Neutrophil # 6.59 X10^3/uL (2.7-7.7); Neutrophil % 71.6 % (47-70); Platelet Count 258 K/mm3 (150-450); RBC Distribution Width CV 12.7 % (11.6-14.6); RBC Distribution Width SD 42.4 fl (35.1-43.9); Red Blood Count 3.73 M/mm3 (4.2-5.4); White Blood Count 9.2 K/mm3 (4.4-11.0)
[2024-03-22 07:17] LABS: ALB/GLOB Ratio 0.6 RATIO (0.9-2.4); AST(SGOT) 25 U/L (15-37); Alanine Aminotransfer ALT/SGPT 23 U/L (13-56); Albumin, Serum 2.9 g/dL (3.2-5.0); Alkaline Phosphatase 73 U/L (45-117); Anion Gap 6 (5-15); BUN 16 mg/dL (7-18); BUN/Creat Ratio 16.4 RATIO (10-20); Calcium,Total 9.3 mg/dL (8.5-10.1); Chloride 108 mmol/L (98-107); Creatinine, Serum 0.98 mg/dL (0.55-1.02); EST Glomerular Filtration Rate 58 mL/min (>60); Est Glom Filt Rate - Afr Amer 71 mL/min (>60); Globulin 4.5 g/dL (2.2-4.2); Glucose 120 mg/dL (74-106); Potassium 3.3 mmol/L (3.5-5.1); Protein, Total 7.4 g/dL (6.4-8.2); Sodium Level 140 mmol/L (136-145)
[2024-03-22 08:49] LABS: Vitamin B12 249 pg/mL (211-911)
[2024-03-22] MEDS: LORazepam 2 MG/ML Syringe IV (09:07)
--- NOTE | 2024-03-22 09:36 | CASEMGMT ---
Discharge Planning Updates faxed to [facility] Attn; Deepa Rosas. Fax confirmation rec'd. Marquita Melchor DC Planning Asst.
--- NOTE | 2024-03-22 10:00 | MRI_ITS ---
We are attempting to reach an attending provider to discuss findings. An addendum with communication details will be sent when the communication is complete. STUDY: MRI BRAIN WITH AND WITHOUT CONTRAST REASON FOR EXAM: Female, 78 years old. CVA, BREAST CA HX -- RT FACIAL DROOP, RT WEAKNESS,REPEAT EXAM ATTEMPTED 03/21/24- IMAGES INCLUDED; PREV MRI 03/18/24; 03/15/24 TECHNIQUE: Standardized multiplanar fat and water weighted pulse sequences were obtained. IV 13ml clariscan was administered for the contrast portion of the examination. COMPARISON: MRI of the brain dated March 21, 2024. Head CT dated March 19, 2024. MRI of the brain dated March 18, 2024 FINDINGS: There is interval development of small acute infarcts at the anterior peripheral and posterior aspect of the left thalamic lobe. No additional acute infarcts are present. There are no enhancing lesions of the brain parenchyma. Redemonstration of cystic volume loss due to an old lacunar infarct of the left periventricular white matter and caudate nucleus junction. There is moderate cerebral atrophy with widening of the extra-axial spaces and ventricular dilatation. There are multiple white matter hyperintensities, distributed throughout the deep white matter tracts of the cerebral hemispheres, consistent with moderate chronic white matter ischemic changes. Normal T2* images of the brain without demonstrated susceptibility artifact. There is no demonstrated hemosiderin stain. Normal bilateral basal ganglia. Normal thalami. There is no extra-axial fluid accumulation. Normal flow voids within the major intracranial circulation suggesting patency by spin echo criteria. Normal venous enhancement. There is no enhancing intra-axial or extra-axial abnormality. Normal sella turcica, pituitary gland, infundibular stalk, optic chiasm and hypothalamus. Normal tectal plate and pineal gland. Normal midbrain, zaira and medulla. Normal cerebellum. Normal basal cisterns. Normal bilateral temporal bones. Normal bilateral internal auditory canals. No demonstrated orbital abnormality, within the constraints of a routine brain study. Normal visualized paranasal sinuses. Normal calvarium and skull base. Normal visualized soft tissue structures. Normal visualized upper cervical spine. MRI/Brain W/WO Contrast IMPRESSION: 2 new small acute infarcts of the left thalamic lobe 1. There is interval development of small acute infarcts at the anterior peripheral and posterior aspect of the left thalamic lobe. No additional acute infarcts are present. 2. There are no enhancing lesions of the brain parenchyma. 3. Redemonstration of cystic volume loss due to an old lacunar infarct of the left periventricular white matter and caudate nucleus junction. Electronically Signed: Robbie John MD at 11:38 EDT ,
--- NOTE | 2024-03-22 10:24 | PCM.PN.HOSP ---
Subjective Subjective Continue to have significant behaviors last evening, she was given a dose of Haldol and an oral dose of Seroquel currently resting Objective Data Objective Data Vital Signs: Vital Signs Temp Pulse Resp BP Pulse Ox O2 Del Method O2 Flow Rate 98.5 F 91 16 185/68 H 93 Nasal Cannula 2 03/22/24 09:17 03/22/24 10:17 03/22/24 10:17 03/22/24 10:07 03/22/24 10:17 03/22/24 10:17 03/22/24 10:17 Oxygen Flow Rate (L/min) 2 Oxygen Delivery Method Nasal Cannula Weight: 133 lb 13.129 oz Body Mass Index (BMI) 22.9 Intake & Output: Intake and Output for Last 24 Hours 03/21/24 03/22/24 03/23/24 03:59 03:59 03:59 Intake Total 0 / 0 623.33 / 623.33 Balance 0 / 0 623.33 / 623.33 Lab / Micro Data 03/22/24 05:51 03/22/24 05:51 Labs: Laboratory Results - last 24 hr 03/21/24 05:35: Vitamin B12 249 03/21/24 12:03: POC Glucose 173 H 03/22/24 05:51: WBC 9.2, RBC 3.73 L, Hgb 10.9 L, Hct 33.7 L, MCV 90.3, MCH 29.2, MCHC 32.3, RDW Std Deviation 42.4, RDW Coeff of Fabian 12.7, Plt Count 258, MPV 9.9, Immature Gran % (Auto) 0.400, Neut % (Auto) 71.6 H, Lymph % (Auto) 13.2 L, [place] % (Auto) 13.5 H, Eos % (Auto) 0.8, Baso % (Auto) 0.5, Absolute Neuts (auto) 6.6, Absolute Lymphs (auto) 1.21, Nucleated RBC % 0, Sodium 140, Potassium 3.3 L, Chloride 108 H, Carbon Dioxide 26.0, Anion Gap 6, BUN 16, Creatinine 0.98, Estim Creat Clear Calc 40.20, Est GFR (MDRD) Af Amer 71, Est GFR (MDRD) Non-Af 58 L, BUN/Creatinine Ratio 16.4, Glucose 120 H, Calcium 9.3, Total Bilirubin 1.50 H, AST 25, ALT 23, Alkaline Phosphatase 73, Total Protein 7.4, Albumin 2.9 L, Globulin 4.5 H, Albumin/Globulin Ratio 0.6 L Rhythm Strip Rhythm Strip: Sinus Rhythm Rate: 95 Ectopy: PAC(s) Physical Exam Narrative General: Alert, confused and disoriented, combative HEENT: Atraumatic, PERRLA, EOMI, Normocephalic Oral: Moist Mucosa Neck: Supple, No JVD Lungs: Diminished, Normal air movement, No rhonchi, No wheeze, No rales Cardiovascular: Regular rate, Regular Rhythm, Normal S1, Normal S2, No murmurs Abdomen: Soft, Non Tender, Non-Distended, No Hepato-splenomegaly Extremities: No edema, Capillary Refill Less than 3 Seconds Skin: No rashes, No breakdown Musculoskeletal: No Tenderness to Palpation of Joints or Extremities Neurological: Moves all extremities but cannot follow exam Psych/Mental Status: Visual hallucinations Assessment & Plan Assessment/Plan (1) Acute CVA (cerebrovascular accident): PLAN: Plan 1. Recurrent acute encephalopathy with right-sided facial droop and aphasia with right-sided hemiaplasia/dementia/depression ? All of these neurological signs appear to have resolved except for the encephalopathy ? She did have a leukocytosis yesterday however could not get a urine sample ? Will start her on empiric Rocephin as her daughter had noticed that she had been having increasing urinary frequency for the last week ? She cannot sit still for an MRI ? Continue with twice daily Seroquel to try to help with behaviors, if she becomes too sedated may need to transition to Risperdal ? PT/OT ? Will not tolerate an EEG at this time ? Had a 20-minute conversation with the daughter on advance care planning ? Continue with her home Zoloft ? Previous CTA of the head and neck demonstrated an internal carotid artery aneurysm given her dementia unlikely to be a great candidate for surgical intervention 2. Essential HTN/HLD ? Continue with her home blood pressure medications ? Will monitor make adjustments as necessary ? Continue with Lipitor 3. History of left invasive lobular carcinoma ? Continue with anastrozole ? Diagnosis was an ER/TN positive and 03/2023 and she underwent a partial mastectomy in April of that year DVT: Lovenox Charges/Coding Multi Select Codes Visit Charges Visit Charges: 65035 Subs Hosp L2 Hospitalists' Procedures Procedures: 29456 Advncd Care Plan 30 Min
[2024-03-22 11:11] LABS: Mucous, Urine 0 SEEN /hpf (<or=2+)
[2024-03-22 11:12] LABS: Color, Urine Yellow (Yellow); Glucose, Dipstick Normal (Normal); Ketone-Dipstick 15 mg/dl (Negative); Leukocyte Esterase-Dipstick 100 /ul (Negative); Nitrite-Dipstick Negative (Negative); Occult Blood-Urine 150 /ul (Negative); Protein-Dipstick 100 mg/dl (Negative); Urine Clarity Cloudy (Clear); Urine Urobilinogen 4 mg/dl (Normal)
[2024-03-22 11:13] LABS: Urine Bilirubin Dipstick 1 mg/dL (Negative)
[2024-03-22 11:18] LABS: Bacteria 4+ /hpf (None Seen); Red Blood Cells-Urine 0-5 SEEN /hpf (0-5); Squamous Epithelial Cells - UA 0-5 SEEN /hpf (5-10); White Blood Cells 25-50 SEEN /hpf (0-5)
[2024-03-22] MEDS: QUEtiapine 25 MG Tablet PO (11:53)
[2024-03-22] MEDS: Ceftriaxone 1 GM/50 ML BAG IV (11:59)
--- NOTE | 2024-03-22 12:49 | CON.PCM.NE_ITS ---
Assessment and Plan: Neuro Assessment/Plan VIJI AMANDA is a 78 yof with history of seizure disorder, TIA, CVA, HTN, GERD, dementia, HEIDI, anxiety/depression, and panic attacks who presents with worsening aphasia and RS facial droop, after presenting twice previously with similar episodes with MRI negative for stroke. MRI this episode was similarly negative for stroke and our telestroke team asked that teleneurology take over. With concern for seizure, EEG was ordered, but this has not yet been completed due to patient intolerance. She is not having strokes and I do not believe these constitute TIAs. She has risk factors for seizure including cortical atrophy/gliosis, though it is difficult to rule out a behavioral component in her aphasia and any acute encephalopathy is certainly overlaid on a progressive dementia. She does warrant EEG, and at this juncture I recommend placing her on Keppra for empiric treatment after EEG is complete (a negative EEg would not rule out seizure). Her dementia must be evaluated and managed outpatient, as the hospital setting clouds any evaluation. Diagnosis: seizure-like episode At high risk for seizure Plan: routine EEG start Keppra 500 mg BID outpatient dementia evaluation and management I personally attended this patient and spent a total time of 32 minutes evaluating this patient, from 12:30 to 1:02, including clinical assessment, review of chart, medical history imaging, and determining appropriate treatment and workup. Lenny Castillo MD [employer] Straight[employer] [facility] Teleneurology HPI Consult Data Date of Consult: 03/22/24 HPI Narrative HPI Narrative: VIJI AMANDA, is a 78 F with history of seizure disorder, TIA, CVA, HTN, GERD, dementia, HEIDI, anxiety/depression, and panic attacks who presents with worsening aphasia and RS facial droop, after presenting twice previously with similar episodes with MRI negative for stroke. MRI this episode was similarly negative and our telestroke team asked that teleneurology take over. With concern for seizure, EEG was ordered, but this has not yet been completed due to patient intolerance. Patient can add no history today as she is verbal but disoriented except to name and able to follow commands only with repeated urging. [facility] Medical History Encounter for education Breast cancer, left breast Seizure disorder Stroke Vaginal itching Ulcerative colitis Sleep apnea Hypercholesteremia MVP (mitral valve prolapse) Low back pain Left hip pain Insomnia IBS (irritable bowel syndrome) Hypokalemia HTN (hypertension) Panic attacks GERD (gastroesophageal reflux disease) Expressive aphasia Eczema Dermatitis Depression Dementia Chronic osteoarthritis Chronic neck pain Chest wall pain Blepharitis of right eye Back pain Atrophic vaginitis Arthritis Anxiety Abdominal pain Amnesia Home Medications ?Medication ?Instructions ?Recorded ?Last Taken ?Type sertraline 50 mg tablet 50 mg PO DAILY DEPRESSION 10/14/23 03/17/24 History anastrozole 1 mg tablet 1 mg PO DAILY BREAST CANCER #90 12/01/23 03/17/24 Rx TABLETS cyclobenzaprine 10 mg tablet 10 mg PO TID PRN MUSCLE SPASMS 03/14/24 03/14/24 History aspirin 81 mg chewable tablet 81 mg PO BREAKFAST 90 days #90 tabs 03/15/24 Unknown Rx atorvastatin 40 mg tablet 40 mg PO QHS CHOLESTEROL 90 days 03/15/24 03/16/24 Rx #90 tabs hydroxyzine pamoate 25 mg capsule 25 mg PO Q6H PRN ANXIETY 03/17/24 Unknown History hydroxyzine pamoate 25 mg capsule 25 mg PO QPM ANXIETY 03/17/24 03/16/24 History loperamide 2 mg capsule 2 mg PO Q4H PRN LOOSE STOOL 03/17/24 Unknown History sertraline 25 mg tablet 25 mg PO DAILY DEPRESSION 03/17/24 03/17/24 History trazodone 50 mg tablet 50 mg PO QHS DEPRESSION 03/17/24 03/16/24 History amlodipine 10 mg tablet 10 mg PO DAILY BLOOD PRESSURE 30 03/19/24 03/17/24 Rx days #0 tabs hydralazine 50 mg tablet 50 mg PO BID BLOOD PRESSURE #30 03/19/24 03/17/24 Rx tabs losartan 100 mg tablet 100 mg PO DAILY BLOOD PRESSURE 30 03/19/24 03/17/24 Rx days #0 tabs Allergy/AdvReac Type Severity Reaction Status Date / Time VIET Inhibitors Allergy Unknown Itching Verified 03/21/24 02:40 imipramine (From Tofranil) Allergy Unknown Vomiting Verified 03/21/24 02:40 naproxen (From Naprosyn) AdvReac Unknown PT UNSURE Verified 03/21/24 02:40 OF REACTION ondansetron (From Zofran) AdvReac Unknown Constipatio Verified 03/21/24 02:40 n zolpidem (From Ambien) AdvReac Unknown Other Verified 03/21/24 02:40 codeine AdvReac Other Verified 03/21/24 02:40 Family History Mother Cancer LUNG Sister Alzheimer disease Breast cancer Fibromyalgia Migraine CVA (cerebral vascular accident) Brother Alzheimer disease Cancer STOMACH Myocardial infarction Daughter Suicide Surgical History History of arthroscopic knee surgery History of appendectomy History of carpal tunnel release History of cholecystectomy History of lumbar fusion Social History (Updated 03/21/24 @ 04:[address] Tammy Clay MD) housing: shelter Smoking Status: Unknown if ever smoked alcohol intake: never substance use type: does not use Vital Signs Vital Signs Vital Signs: 03/21/24 15:58 03/21/24 21:37 03/22/24 01:30 Temperature 98.7 F 97.3 F L 97.7 F L Temperature Source Axillary Temporal Temporal Pulse Rate 93 89 84 Respiratory Rate 12 16 15 Blood Pressure 156/60 H 157/66 H 169/131 H Blood Pressure Mean 92 96 143 Blood Pressure Source Monitor Monitor Monitor Blood Pressure Position Left Lateral Semi-Fowlers Semi-Fowlers Blood Pressure Location Right Arm Left Arm Left Arm Pulse Ox 97 96 95 Oxygen Delivery Method Room Air Room Air Room Air Oxygen Flow Rate (L/min) 03/22/24 05:30 03/22/24 09:17 03/22/24 10:07 Temperature 97.5 F L 98.5 F Temperature Source Temporal Temporal Pulse Rate 86 87 90 Respiratory Rate 16 12 16 Blood Pressure 154/78 H 188/84 H 185/68 H Blood Pressure Mean 103 118 107 Blood Pressure Source Monitor Monitor Monitor Blood Pressure Position Semi-Fowlers Sitting Supine Blood Pressure Location Right Arm Right Arm Right Arm Pulse Ox 99 97 94 Oxygen Delivery Method Room Air Room Air Room Air Oxygen Flow Rate (L/min) 03/22/24 10:17 03/22/24 10:28 03/22/24 10:38 Temperature Temperature Source Pulse Rate 91 82 83 Respiratory Rate 16 16 16 Blood Pressure 156/62 H 159/72 H Blood Pressure Mean 93 101 Blood Pressure Source Monitor Monitor Blood Pressure Position Supine Supine Blood Pressure Location Right Arm Right Arm Pulse Ox 93 94 93 Oxygen Delivery Method Nasal Cannula Room Air Room Air Oxygen Flow Rate (L/min) 2 Weight Weight: 60.7 kg Body Mass Index (BMI) 22.9 EEG Results Procedure Details EEG Procedure Details: VIJI AMANDA is a 78 year old F with a past medical history of , who presents for evaluation of Electroencephalogram on DATE at TIME NIHSS NIHSS Nursing Documentation NIHSS Nursing Documentation: NIHSS: Ischemic Stroke/TIA Start: 03/21/24 05:24 Text: For PCU Patients: NIH and Neuro Check every 4 Status: Active hours, PRN and with change in RN caregiver. Freq: [id number] Protocol: Activity Type Activity Date Activity User E-sign Co-sign Detail Recorded Client Recorded Date Recorded By Document 03/22/24 05:31 DIANELYS desktop 03/22/24 05:32 DIANELYS 03/22/24 05:31 NIH Stroke Scale [NIHSS] A score of 0 is normal or asymptomatic . Total possible score is 42. Inpatient: RN or Physician to activate a stroke alert for onset of new stroke symptoms or with NIHSS increase >/= 3 points. Following change in neurological status, NIHSS will be performed per physician order or more frequently PRN. -1a. Level of Consciousness Alert; keenly responsive -1b. LOC Questions Answers neither question correctly. -1c. LOC Commands Performs neither task correctly. -2. Best Gaze Normal -3. Visual No visual loss -4. Facial Palsy Minor paralysis (flattened nasolabial fold , asymmetry on smiling) -5a. Left Arm No drift; arm holds 90 (or 45 ) degrees for full 10 seconds -5b. Right Arm Drift; arm drifts downward but doesn?t hit the bed -6a. Left Leg No drift; leg holds 30-degree position for full 5 seconds -6b. Right Leg Some effort against gravity ; -7. Limb Ataxia Absent -8. Sensory Mild-to- moderate sensory loss; -9. Best Language Mild-to- moderate aphasia; -10. Dysarthria Normal -11. Extinction and Inattention No abnormality -Total 10 Query Text:A score of 0 is normal or asymptomatic. Total possible score is 42 . ED: Notify Physician for NIHSS increase by > / = 3 points. Inpatient: RN or Physician to activate a stroke alert for NIHSS increase of > / = 3 points. Coma Scale [Assess] -Eye Opening Spontaneous -Motor Withdraws to Pain -Verbal Confused [Total] -Coma Scale Total 12 Physical Exam Narrative Oriented to self with much urging. Says she is on the couch. Cannot guess at day. EOMI, no facial paralysis, no dysarthria, hearing intact to voice. With considerable urging is able to move all extremities - unclear whether she can follow lateralizing commands, and full ROM/strength cannot be tested. No obvious tremor or dyskinesia. Lab / Micro Data 03/22/24 05:51 03/22/24 05:51 Labs: Laboratory Results - last 24 hr 03/21/24 05:35: Vitamin B12 249 03/22/24 05:51: WBC 9.2, RBC 3.73 L, Hgb 10.9 L, Hct 33.7 L, MCV 90.3, MCH 29.2, MCHC 32.3, RDW Std Deviation 42.4, RDW Coeff of Fabian 12.7, Plt Count 258, MPV 9.9, Immature Gran % (Auto) 0.400, Neut % (Auto) 71.6 H, Lymph % (Auto) 13.2 L, [place] % (Auto) 13.5 H, Eos % (Auto) 0.8, Baso % (Auto) 0.5, Absolute Neuts (auto) 6.6, Absolute Lymphs (auto) 1.21, Nucleated RBC % 0, Sodium 140, Potassium 3.3 L, Chloride 108 H, Carbon Dioxide 26.0, Anion Gap 6, BUN 16, Creatinine 0.98, Estim Creat Clear Calc 40.20, Est GFR (MDRD) Af Amer 71, Est GFR (MDRD) Non-Af 58 L, BUN/Creatinine Ratio 16.4, Glucose 120 H, Calcium 9.3, Total Bilirubin 1.50 H, AST 25, ALT 23, Alkaline Phosphatase 73, Total Protein 7.4, Albumin 2.9 L, Globulin 4.5 H, Albumin/Globulin Ratio 0.6 L 03/22/24 11:00: Urine Color Yellow, Urine Clarity Cloudy, Urine pH 6.0, Ur Specific [place] 1.020, Urine Protein 100 H, Urine Glucose (UA) Normal, Urine Ketones 15 H, Urine Occult Blood 150 H, Urine Nitrite Negative, Urine Bilirubin 1 H, Urine Urobilinogen 4 H, Ur Leukocyte Esterase 100 H, Urine RBC 0-5 SEEN, Urine WBC 25-50 SEEN, Ur Squamous Epith Cells 0-5 SEEN, Urine Bacteria 4+, Urine Mucus 0 SEEN Rhythm Strip Rhythm Strip: Sinus Rhythm Rate: 95 Ectopy: PAC(s) Imaging Radiology Impression Brain MRI 03/22/24 10:00 IMPRESSION: 2 new small acute infarcts of the left thalamic lobe 1. There is interval development of small acute infarcts at the anterior peripheral and posterior aspect of the left thalamic lobe. No additional acute infarcts are present. 2. There are no enhancing lesions of the brain parenchyma. 3. Redemonstration of cystic volume loss due to an old lacunar infarct of the left periventricular white matter and caudate nucleus junction. Electronically Signed: Robbie John MD at 11:38 EDT , ADDENDUM: 03/22/24 1208 IMPRESSION: 2 new small acute infarcts of the left thalamic lobe 1. There is interval development of small acute infarcts at the anterior peripheral and posterior aspect of the left thalamic lobe. No additional acute infarcts are present. 2. There are no enhancing lesions of the brain parenchyma. 3. Redemonstration of cystic volume loss due to an old lacunar infarct of the left periventricular white matter and caudate nucleus junction. N.B. : The above Results were Read Back by Robbie John MD to Elif Hernandez RN, and understanding confirmed on 03/22/2024 12:01:10 (ET). Electronically Signed: Robbie John MD at 11:38 EDT , Active Medications Active Medications Active Medications: Current Medications Generic Name Dose Route Start Last Admin Trade Name Freq PRN Reason Stop Dose Admin Acetaminophen 650 mg 03/21/24 05:24 Acetaminophen 325 Mg Tablet PO Q4H PRN PRN Fever, pain 1-07/01 Al Hydroxide/Mg Hydroxide 30 ml 03/21/24 05:24 Mag Hydrox/Al Hydrox/Simeth 30 Ml Udc PO Q6H PRN PRN Gastric Burning Albuterol Sulfate 2.5 mg 03/21/24 05:24 Albuterol 2.5 Mg/3 Ml Vial.Neb. INHALATION Q2H PRN PRN Dyspnea, wheezing Anastrozole 1 mg 03/21/24 10:00 03/22/24 10:10 Anastrozole 1 Mg Tablet PO Not Given DAILY [facility] Aspirin 81 mg 03/21/24 08:00 03/22/24 09:19 Aspirin 81 Mg Tab.Chew PO Not Given BREAKFAST [facility] Atorvastatin Calcium 40 mg 03/21/24 22:00 03/21/24 22:51 Atorvastatin Calcium 40 Mg Tablet PO Not Given QHS [facility] Enoxaparin Sodium 40 mg 03/21/24 10:00 03/22/24 10:10 Enoxaparin 40 Mg/0.4 Ml Syringe SC Not Given DAILY [facility] Glucagon 1 mg 03/21/24 05:24 Glucagon 1 Mg/Ml Syringe IM X1 PRN HYPOGLYCEMIA Protocol Guaifenesin 20 ml 03/21/24 05:24 Guaifenesin 10 Ml Udc (200mg/10ml) PO Q4H PRN PRN COUGH Hydroxyzine Pamoate 25 mg 03/21/24 05:24 03/21/24 09:36 Hydroxyzine [place] 25 Mg Capsule PO 25 mg Q6H PRN Administration ANXIETY Hydroxyzine Pamoate 25 mg 03/21/24 21:00 03/21/24 22:50 Hydroxyzine [place] 25 Mg Capsule PO Not Given QPM [facility] Dextrose 250 mls @ 999 mls/hr 03/21/24 05:24 Dextrose 10%-Water IV .Q16M PRN HYPOGLYCEMIA Protocol Ceftriaxone Sodium 1 gm in 50 mls @ 100 mls/hr 03/22/24 10:25 03/22/24 12:46 Rocephin IV Infused Q24 [facility] Infusion Insulin Human Lispro 0 unit 03/21/24 07:00 03/22/24 12:16 Insulin Lispro 100 Unit/Ml Insuln.Pen SC Not Given ACHS [facility] Protocol Lorazepam 0.5 - 1 mg 03/21/24 21:00 03/22/24 09:07 Lorazepam 2 Mg/Ml Syringe IV 0.5 mg X1 PRN Administration agitation with MRI Melatonin 3 mg 03/21/24 05:24 Melatonin 3 Mg Tablet PO QHS PRN PRN INSOMNIA Nutritional Formula (Lactose Free) 120 ml 03/21/24 17:00 03/22/24 12:16 Ensure Plus High Protein 120 Ml Liquid PO Not Given TIDCM [facility] Ondansetron HCl 4 mg 03/21/24 05:24 Ondansetron 4 Mg/2 Ml Vial IV Q8H PRN PRN NAUSEA/VOMITING Prochlorperazine Edisylate 5 mg 03/21/24 05:24 Prochlorperazine 10 Mg/2 Ml Vial IV Q4H PRN PRN Breakthrough Nausea/Vomiting Quetiapine Fumarate 25 mg 03/22/24 10:00 03/22/24 11:53 Quetiapine 25 Mg Tablet PO 25 mg BID [facility] Administration Protocol Senna/Docusate Sodium 2 tablet 03/21/24 05:24 Senna/Docusate Sodium 1 Tablet PO BID PRN PRN Constipation Sertraline HCl 50 mg 03/21/24 10:00 03/22/24 10:10 Sertraline 50 Mg Tablet PO Not Given DAILY [facility] Sertraline HCl 25 mg 03/21/24 10:00 03/22/24 10:11 Sertraline 50 Mg Tablet PO Not Given DAILY [facility] Trazodone HCl 50 mg 03/21/24 22:00 03/21/24 22:50 Trazodone 50 Mg Tablet PO Not Given QHS [facility]
--- NOTE | 2024-03-22 13:51 | CASEMGMT ---
Spoke with patients daughter to complete TARIQ form. TARIQ form explained to daughter who voiced understanding and verbally acknowled form. Original form placed in pt?s chart and copy provided to patient. Marquita Melchor, Discharge Planning Asst
[2024-03-22 16:16] LABS: Bedside Glucose 113 mg/dL (74-106)
--- NOTE | 2024-03-22 22:21 | NURSING ---
pt confused, very agitated, and resisting care. This RN attempted to perform NIHSS assessment, evening medication, and routine VS, but pt is becoming combative to staff. MD made aware. Pt's peripheral IV disconnected from IV pump and IV access wrapped in rebecca wrap. Pt in bed awake, adjusted in bed w/ 2 bearingizer, no further concerns at this time.
[2024-03-23] MEDS: hydrOXYzine 50 MG/ML Vial 100 MG IM (00:12)
[2024-03-23 00:58] VITALS: BP 167/81; PULSE 91; RESP 18; TEMP 36.7; O2SAT 95
[2024-03-23 01:17] LABS: Bedside Glucose 125 mg/dL (74-106)
[2024-03-23 01:29] VITALS: BMI 22.9
[2024-03-23 01:36] VITALS: BMI 22.9
[2024-03-23] MEDS: Acetaminophen 325 MG Tablet 650 MG PO (04:31)
[2024-03-23 05:16] VITALS: BP 157/69; PULSE 90; RESP 18; TEMP 36.7; O2SAT 97
[2024-03-23 05:26] VITALS: BMI 23.4
[2024-03-23 06:55] LABS: Bedside Glucose 107 mg/dL (74-106)
[2024-03-23 07:09] VITALS: O2SAT 96
[2024-03-23 07:51] LABS: Absolute Lymphocyte Count 1.07 X10^3/uL (0.83-4.51); Basophil# 0.06 X10^3/uL; Basophil% 0.8 % (0-1); Eosinophil# 0.14 X10^3/uL; Hematocrit 35.6 % (37-47); Hemoglobin 11.5 g/dL (12.0-15.0); Lymphocyte # 1.07 X10^3/ul (0.83-4.51); Mean Corp Hgb Conc 32.3 g/dL (32-36); Mean Corpuscular Hgb 29.4 pg (27.0-32.0); Mean Platelet Vol. 9.5 fl (6.2-12.0); Monocyte# 0.86 X10^3/uL; NRBC Flagged by Analyzer 0 % (0-5); Neutrophil # 4.99 X10^3/uL (2.7-7.7); Neutrophil % 69.9 % (47-70); Platelet Count 300 K/mm3 (150-450); RBC Distribution Width CV 12.4 % (11.6-14.6); RBC Distribution Width SD 41.1 fl (35.1-43.9); Red Blood Count 3.91 M/mm3 (4.2-5.4); White Blood Count 7.1 K/mm3 (4.4-11.0)
[2024-03-23 08:07] LABS: Anion Gap 8 (5-15); BUN 11 mg/dL (7-18); BUN/Creat Ratio 13.8 RATIO (10-20); Chloride 105 mmol/L (98-107); EST Glomerular Filtration Rate 74 mL/min (>60); Est Glom Filt Rate - Afr Amer 89 mL/min (>60); Estimated Creatinine Clearance 49.24 ml/min; Glucose 113 mg/dL (74-106); Potassium 3.1 mmol/L (3.5-5.1); Sodium Level 139 mmol/L (136-145)
[2024-03-23] MEDS: Anastrozole 1 MG TABLET PO (09:14)
[2024-03-23] MEDS: levETIRAcetam 500 MG Tablet PO ×2 (09:14→22:09)
[2024-03-23] MEDS: Enoxaparin 40 MG/0.4 ML Syringe SC (09:14)
[2024-03-23] MEDS: QUEtiapine 25 MG Tablet PO ×2 (09:15→17:51)
[2024-03-23] MEDS: Aspirin 81 MG TAB.CHEW PO (09:15)
[2024-03-23] MEDS: Sertraline 50 MG Tablet 25 MG PO (09:16)
[2024-03-23] MEDS: Sertraline 50 MG Tablet PO (09:16)
[2024-03-23] MEDS: Ceftriaxone 1 GM/50 ML BAG IV (09:47)
--- NOTE | 2024-03-23 10:42 | CASEMGMT ---
JASON received a voice mail from Deepa at [employer] requesting a return call. JASON asked Marquita to fax updates to [facility]. JASON also called Deepa back and left her a voice mail letting her know patient did have a Stroke and is also being treated for a UTI. JASON let Deepa know Marquita was sending updates. Eliana Houston COMMUNICATIONS PROGRAMMER [employer]
--- NOTE | 2024-03-23 10:53 | PN.HOSP_ITS ---
Subjective Subjective Had an episode of owning yesterday and had to get a shot of IM hydroxyzine will adjust Seroquel dosing Objective Data Objective Data Vital Signs: Vital Signs Temp Pulse Resp BP Pulse Ox O2 Del Method O2 Flow Rate 98.0 F 90 18 157/69 H 97 Room Air 2 03/23/24 05:16 03/23/24 05:16 03/23/24 05:16 03/23/24 05:16 03/23/24 05:16 03/23/24 05:16 03/22/24 10:17 FiO2 95 03/22/24 13:48 Oxygen Flow Rate (L/min) 2 Oxygen Delivery Method Room Air Weight: 136 lb 10.986 oz Body Mass Index (BMI) 23.4 Intake & Output: Intake and Output for Last 24 Hours 03/22/24 03/23/24 03/24/24 03:59 03:59 03:59 Intake Total 623.33 / 623.33 270 / 270 170 / 170 Balance 623.33 / 623.33 270 / 270 170 / 170 Lab / Micro Data 03/23/24 07:19 03/23/24 07:19 Labs: Laboratory Results - last 24 hr 03/22/24 11:00: Urine Color Yellow, Urine Clarity Cloudy, Urine pH 6.0, Ur Specific [place] 1.020, Urine Protein 100 H, Urine Glucose (UA) Normal, Urine Ketones 15 H, Urine Occult Blood 150 H, Urine Nitrite Negative, Urine Bilirubin 1 H, Urine Urobilinogen 4 H, Ur Leukocyte Esterase 100 H, Urine RBC 0-5 SEEN, Urine WBC 25-50 SEEN, Ur Squamous Epith Cells 0-5 SEEN, Urine Bacteria 4+, Urine Mucus 0 SEEN 03/22/24 15:21: POC Glucose 113 H 03/23/24 00:53: POC Glucose 125 H 03/23/24 06:17: POC Glucose 107 H 03/23/24 07:19: WBC 7.1, RBC 3.91 L, Hgb 11.5 L, Hct 35.6 L, MCV 91.0, MCH 29.4, MCHC 32.3, RDW Std Deviation 41.1, RDW Coeff of Fabian 12.4, Plt Count 300, MPV 9.5, Immature Gran % (Auto) 0.300, Neut % (Auto) 69.9, Lymph % (Auto) 15.0 L, M grupo % (Auto) 12.0 H, Eos % (Auto) 2.0, Baso % (Auto) 0.8, Absolute Neuts (auto) 5.0, Absolute Lymphs (auto) 1.07, Nucleated RBC % 0, Sodium 139, Potassium 3.1 L , Chloride 105, Carbon Dioxide 26.0, Anion Gap 8, BUN 11, Creatinine 0.80, Estim Creat Clear Calc 49.24, Est GFR (MDRD) Af Amer 89, Est GFR (MDRD) Non-Af 74, BUN/Creatinine Ratio 13.8, Glucose 113 H, Calcium 9.0 Radiography Diagnostic Testing: Radiology Impression Brain MRI 03/22/24 10:00 IMPRESSION: 2 new small acute infarcts of the left thalamic lobe 1. There is interval development of small acute infarcts at the anterior peripheral and posterior aspect of the left thalamic lobe. No additional acute infarcts are present. 2. There are no enhancing lesions of the brain parenchyma. 3. Redemonstration of cystic volume loss due to an old lacunar infarct of the left periventricular white matter and caudate nucleus junction. Electronically Signed: Robbie John MD at 11:38 EDT , ADDENDUM: 03/22/24 1208 IMPRESSION: 2 new small acute infarcts of the left thalamic lobe 1. There is interval development of small acute infarcts at the anterior peripheral and posterior aspect of the left thalamic lobe. No additional acute infarcts are present. 2. There are no enhancing lesions of the brain parenchyma. 3. Redemonstration of cystic volume loss due to an old lacunar infarct of the left periventricular white matter and caudate nucleus junction. N.B. : The above Results were Read Back by Robbie John MD to Elif Hernandez RN, and understanding confirmed on 03/22/2024 12:01:10 (ET). Electronically Signed: Robbie John MD at 11:38 EDT , Rhythm Strip Rhythm Strip: Sinus Rhythm Rate: 95 Ectopy: PAC(s) Physical Exam Narrative General: Alert, confused and disoriented, no acute distress HEENT: Atraumatic, PERRLA, EOMI, Normocephalic Oral: Moist Mucosa Neck: Supple, No JVD Lungs: Diminished, Normal air movement, No rhonchi, No wheeze, No rales Cardiovascular: Regular rate, Regular Rhythm, Normal S1, Normal S2, No murmurs Abdomen: Soft, Non Tender, Non-Distended, No Hepato-splenomegaly Extremities: No edema, Capillary Refill Less than 3 Seconds Skin: No rashes, No breakdown Musculoskeletal: No Tenderness to Palpation of Joints or Extremities Neurological: Moves all extremities but cannot follow exam Psych/Mental Status: Visual hallucinations Assessment & Plan Assessment/Plan (1) Acute CVA (cerebrovascular accident): PLAN: Plan 1. Recurrent acute encephalopathy with right-sided facial droop and aphasia with right-sided hemiaplasia with possible stroke left thalamus with UTI and possible seizures/dementia/depression ? All of these neurological signs appear to have resolved except for the encephalopathy ? Urine sample consistent with UTI, culture pending. Continue with Rocephin ? MRI did demonstrate a left thalamic stroke from radiology read however in discussion with neurology they were not 100% convinced that there was strokes ? PT/OT ? Will not tolerate an EEG at this time, will reattempt in the next 24 to 48 hours ? Continue with her home Zoloft ? Previous CTA of the head and neck demonstrated an internal carotid artery aneurysm given her dementia unlikely to be a great candidate for surgical intervention 2. Essential HTN/HLD ? Continue with her home blood pressure medications ? Will monitor make adjustments as necessary ? Continue with Lipitor 3. History of left invasive lobular carcinoma ? Continue with anastrozole ? Diagnosis was an ER/IL positive and 03/2023 and she underwent a partial mastectomy in April of that year DVT: Lovenox Charges/Coding Visit Charges Inpatient E&M: 44818 Subs Hosp L2
[2024-03-23 11:00] VITALS: BP 140/74; PULSE 95; RESP 15; TEMP 36.1; O2SAT 97
[2024-03-23 11:16] LABS: Magnesium 1.6 mg/dL (1.6-2.6); Phosphorus 2.7 mg/dL (2.5-4.9)
[2024-03-23] MEDS: Ondansetron 4 MG/2 ML Vial IV (11:19)
[2024-03-23 11:39] LABS: Bedside Glucose 98 mg/dL (74-106)
[2024-03-23] MEDS: Potassium Chloride Oral Tablet 20 MEQ 60 MEQ PO (12:43)
--- NOTE | 2024-03-23 15:16 | STROKE.PNOTE ---
Objective Data Objective Data Vital Signs: Vital Signs Temp Pulse Resp BP Pulse Ox O2 Del Method O2 Flow Rate 96.9 F L 95 15 140/74 H 97 Room Air 2 03/23/24 11:00 03/23/24 11:00 03/23/24 11:00 03/23/24 11:00 03/23/24 11:00 03/23/24 11:00 03/22/24 10:17 FiO2 95 03/22/24 13:48 Oxygen Flow Rate (L/min) 2 Oxygen Delivery Method Room Air Weight: 62 kg Body Mass Index (BMI) 23.4 Intake & Output: Intake and Output for Last 24 Hours 03/21/24 03/22/24 03/23/24 23:59 23:59 23:59 Intake Total 623.33 / 623.33 270 / 270 410 / 410 Balance 623.33 / 623.33 270 / 270 410 / 410 Lab / Micro Data 03/23/24 07:19 03/23/24 07:19 Labs: Laboratory Results - last 24 hr 03/22/24 15:21: POC Glucose 113 H 03/23/24 00:53: POC Glucose 125 H 03/23/24 06:17: POC Glucose 107 H 03/23/24 07:19: WBC 7.1, RBC 3.91 L, Hgb 11.5 L, Hct 35.6 L, MCV 91.0, MCH 29.4, MCHC 32.3, RDW Std Deviation 41.1, RDW Coeff of Fabian 12.4, Plt Count 300, MPV 9.5, Immature Gran % (Auto) 0.300, Neut % (Auto) 69.9, Lymph % (Auto) 15.0 L, Sebastian % (Auto) 12.0 H, Eos % (Auto) 2.0, Baso % (Auto) 0.8, Absolute Neuts (auto) 5.0, Absolute Lymphs (auto) 1.07, Nucleated RBC % 0, Sodium 139, Potassium 3.1 L, Chloride 105, Carbon Dioxide 26.0, Anion Gap 8, BUN 11, Creatinine 0.80, Estim Creat Clear Calc 49.24, Est GFR (MDRD) Af Amer 89, Est GFR (MDRD) Non-Af 74, BUN/Creatinine Ratio 13.8, Glucose 113 H, Calcium 9.0, Phosphorus 2.7, Magnesium 1.6 03/23/24 11:00: POC Glucose 98 Rhythm Strip Rhythm Strip: Sinus Rhythm Rate: 95 Ectopy: PAC(s) Physical Exam Neuro Neuro Narrative: Neurological examination: Mental status: The patient is sleepy, does not speak or follow commands. No speech. Cranial nerves: Face appears symmetric. No speech. Motor: HANLEY x 4. Arms are able to anti-gravity,bilateral legs shows some effort but drift down bilaterally. Cerebellar: No gross dysmetria. Subject: Neurology Subjective RN reports patient MS fluctuates, she will speak at time, she was combative and more awake overnight, she moves all 4 extremities. She is eating. EEG was attempted but could not be done because patient was not cooperative. Assessment and Plan: Stroke Assessment/Plan VIJI AMANDA is a 78 year old F with history of dementia, HTN, prior stroke, and seizure disorder who presents with recurrent episodes of MS changes. She was hospitalizted at [place] 03/14/03/15 -03/15/24 with an NIHSS 13, CT brain negative, CTA small right ICA aneurysm, MRI brain DWI negative, TTE EF 65%, she was discharged with diagnosis of TIA to her assisted living. She then was re-hospitalized 03/17/24-03/19/24 with similar episode. She was given IV TNK on 03/17/24 1113a. MRI brain negative. She was discharged back to her assisted living with an NIHSS-2. She presented again to [facility] ER with right facial droop and MS changes. NIHSS 18. CT brain negative. CTA head/neck negative. She was admitted. UTI+ started on rocephin. 03/22/24 MRI brain DWI shows a small left thalamic hyperintensity that is not clearly dark on ADC, suggestive of a small subacute infarct, which is new since prior MRI brain done 03/18/24. Gen neuro saw her 03/22/24 and recommend EEG and keppra. She is on lipitor 40, Asa. ASSESSMENT/PLAN: Possible small acute left thalamic ischemic stroke 1) Continue daily anti-platelet medication (Asa) and vascular risk factor modification. on lipitor. 2) Recommend EEG for MS. Continue keppra.
--- NOTE | 2024-03-23 15:34 | CASEMGMT ---
Discharge Planning Updates faxed to [facility] Attn; Deepa Rosas. Fax confirmation rec'd. Marquita Melchor DC Planning Asst.
[2024-03-23] MEDS: proCHLORPERazine 10 MG/2 ML Vial 5 MG IV (16:17)
[2024-03-23] MEDS: Haloperidol Lactate 5 MG/ML Vial 2 MG IM (16:37)
[2024-03-23 22:07] VITALS: BP 165/73; PULSE 92; RESP 14; TEMP 36.2; O2SAT 91
[2024-03-23] MEDS: traZODone 50 MG Tablet PO (22:09)
[2024-03-23] MEDS: Atorvastatin Calcium 40 MG Tablet PO (22:09)
[2024-03-23 22:48] LABS: Bedside Glucose 108 mg/dL (74-106)
[2024-03-23 22:53] VITALS: BMI 23.4
[2024-03-24 00:20] VITALS: BP 164/64; PULSE 84; RESP 18; TEMP 36.4; O2SAT 95
[2024-03-24 02:53] VITALS: BP 188/88; PULSE 91; RESP 18; TEMP 36.8; O2SAT 95
[2024-03-24 04:42] VITALS: BMI 23.1
[2024-03-24 07:20] LABS: Bedside Glucose 116 mg/dL (74-106)
[2024-03-24 08:57] VITALS: BP 163/86; PULSE 103; RESP 17; TEMP 36.5; O2SAT 96
[2024-03-24] MEDS: Anastrozole 1 MG TABLET PO (09:00)
[2024-03-24] MEDS: Sertraline 50 MG Tablet PO (09:01)
[2024-03-24] MEDS: Sertraline 50 MG Tablet 25 MG PO (09:01)
[2024-03-24] MEDS: levETIRAcetam 500 MG Tablet PO (09:02)
[2024-03-24] MEDS: Aspirin 81 MG TAB.CHEW PO (09:02)
[2024-03-24] MEDS: QUEtiapine 25 MG Tablet PO ×2 (09:02→17:04)
[2024-03-24] MEDS: Enoxaparin 40 MG/0.4 ML Syringe SC (09:04)
[2024-03-24] MEDS: Ceftriaxone 1 GM/50 ML BAG IV (09:25)
[2024-03-24] MEDS: 0.9% Saline Lock 10 ML Syringe IV ×2 (09:25→16:17)
--- NOTE | 2024-03-24 11:08 | PCM.PN.HOSP ---
Subjective Subjective Continues to be confused with intermittent episodes of aggression Objective Data Objective Data Vital Signs: Vital Signs Temp Pulse Resp BP Pulse Ox O2 Del Method O2 Flow Rate 97.7 F L 103 H 17 163/86 H 96 Room Air 2 03/24/24 08:57 03/24/24 08:57 03/24/24 08:57 03/24/24 08:57 03/24/24 08:57 03/24/24 09:09 03/22/24 10:17 FiO2 95 03/22/24 13:48 Oxygen Flow Rate (L/min) 2 Oxygen Delivery Method Room Air Weight: 134 lb 14.766 oz Body Mass Index (BMI) 23.1 Intake & Output: Intake and Output for Last 24 Hours 03/23/24 03/24/24 03/25/24 03:59 03:59 03:59 Intake Total 270 / 270 410 / 410 50 / 50 Balance 270 / 270 410 / 410 50 / 50 Lab / Micro Data 03/23/24 07:19 03/23/24 07:19 Labs: Laboratory Results - last 24 hr 03/23/24 07:19: Phosphorus 2.7, Magnesium 1.6 03/23/24 11:00: POC Glucose 98 03/23/24 22:13: POC Glucose 108 H 03/24/24 06:58: POC Glucose 116 H Micro: Microbiology 03/22/24 11:00 Urine, Catheterized Urine Culture - 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 Gram negative ritesh Rhythm Strip Rhythm Strip: Sinus Rhythm Rate: 95 Ectopy: PAC(s) Physical Exam Narrative General: Alert, confused and disoriented, combative today HEENT: [place] in the left scalp under her hair, PERRLA, EOMI, Normocephalic Oral: Moist Mucosa Neck: Supple, No JVD Lungs: Diminished, Normal air movement, No rhonchi, No wheeze, No rales Cardiovascular: Regular rate, Regular Rhythm, Normal S1, Normal S2, No murmurs Abdomen: Soft, Non Tender, Non-Distended, No Hepato-splenomegaly Extremities: No edema, Capillary Refill Less than 3 Seconds Skin: No rashes, No breakdown Musculoskeletal: No Tenderness to Palpation of Joints or Extremities Neurological: Moves all extremities but cannot follow exam Psych/Mental Status: Visual hallucinations Assessment & Plan Assessment/Plan (1) Acute CVA (cerebrovascular accident): PLAN: Plan 1. Recurrent acute encephalopathy with right-sided facial droop and aphasia with right-sided hemiaplasia with possible stroke left thalamus with UTI and possible seizures/dementia/depression ? All of these neurological signs appear to have resolved except for the encephalopathy ? Urine sample consistent with UTI, there appear to be 2 different gram-negative rods. Continue with Rocephin ? MRI did demonstrate a left thalamic stroke from radiology read however in discussion with neurology they were not 100% convinced that there was strokes ? PT/OT ? Will not tolerate an EEG at this time, will reattempt in the next 24 to 48 hours ? Continue with her home Zoloft ? Previous CTA of the head and neck demonstrated an internal carotid artery aneurysm given her dementia unlikely to be a great candidate for surgical intervention ? Will plan for an event monitor on discharge 2. Essential HTN/HLD ? Continue with her home blood pressure medications ? Will monitor make adjustments as necessary ? Continue with Lipitor and aspirin 3. History of left invasive lobular carcinoma ? Continue with anastrozole ? Diagnosis was an ER/ND positive and 03/2023 and she underwent a partial mastectomy in April of that year DVT: Lovenox Charges/Coding Visit Charges Inpatient E&M: 83224 Subs Hosp L2
[2024-03-24 11:16] VITALS: BMI 23.1
--- NOTE | 2024-03-24 11:18 | PN.NEURO_ITS ---
Objective Data Objective Data Vital Signs: Vital Signs Temp Pulse Resp BP Pulse Ox O2 Del Method O2 Flow Rate 97.7 F L 103 H 17 163/86 H 96 Room Air 2 03/24/24 08:57 03/24/24 08:57 03/24/24 08:57 03/24/24 08:57 03/24/24 08:57 03/24/24 09:09 03/22/24 10:17 FiO2 95 03/22/24 13:48 Oxygen Flow Rate (L/min) 2 Oxygen Delivery Method Room Air Weight: 61.2 kg Body Mass Index (BMI) 23.1 Intake & Output: Intake and Output for Last 24 Hours 03/22/24 03/23/24 03/24/24 23:59 23:59 23:59 Intake Total 270 / 270 410 / 410 50 / 50 Balance 270 / 270 410 / 410 50 / 50 Lab / Micro Data 03/23/24 07:19 03/23/24 07:19 Labs: Laboratory Results - last 24 hr 03/23/24 11:00: POC Glucose 98 03/23/24 22:13: POC Glucose 108 H 03/24/24 06:58: POC Glucose 116 H Micro: Microbiology 03/22/24 11:00 Urine, Catheterized Urine Culture - Preliminary GNR lactose freight car loader Gram negative ritesh Rhythm Strip Rhythm Strip: Sinus Rhythm Rate: 95 Ectopy: PAC(s) Physical Exam Neuro Neuro Narrative: Neurological examination: Mental status: The patient is sleepy, does not speak or follow commands. No speech. Cranial nerves: Face appears symmetric. No speech. Motor: HANLEY x 4. Arms are able to anti-gravity,bilateral legs shows some effort but drift down bilaterally. Cerebellar: No gross dysmetria. Subject: Neurology Subjective RN reports patient remains uncooperative, occasionally speaks, does not follow commands, but moves all 4 extremities strongly. They were unable to do EEG because of cooperation. Patient is on seroquel which RN doesnt feel seems to make much impact. EEG Results Procedure Details EEG Procedure Details: Assessment and Plan: Stroke Assessment/Plan Assessment/Plan VIJI AMANDA is a 78 year old F with history of dementia, HTN, prior stroke, and seizure disorder who presents with recurrent episodes of MS changes. She was hospitalizted at [place] 03/14/03/15 -03/15/24 with an NIHSS 13, CT brain negative, CTA small right ICA aneurysm, MRI brain DWI negative, TTE EF 65%, she was discharged with diagnosis of TIA to her assisted living. She then was re- hospitalized 03/17/24-03/19/24 with similar episode. She was given IV TNK on 03/17/24 1113a. MRI brain negative. She was discharged back to her assisted living with an NIHSS-2. She presented again to [facility] ER with right facial droop and MS changes. NIHSS 18. CT brain negative. CTA head/neck negative. She was admitted. UTI+ started on rocephin. 03/22/24 MRI brain DWI shows a small left thalamic hyperintensity that is not clearly dark on ADC, suggestive of a small subacute infarct, which is new since prior MRI brain done 03/18/24. Gen neuro saw her 03/22/24 and recommend EEG and keppra. She is on lipitor 40, Asa. ASSESSMENT/PLAN: Possible small acute left thalamic ischemic stroke 1) Continue daily anti-platelet medication (Asa) and vascular risk factor modification. on lipitor. 2) Recommend EEG for MS when able. Continue keppra. 3) Follow-up in outpatient neurology clinic. I will sign off. Please call back with further stroke related questions.
[2024-03-24 11:52] LABS: Bedside Glucose 109 mg/dL (74-106)
[2024-03-24 15:23] VITALS: BP 160/94; PULSE 106; RESP 17; TEMP 36.4; O2SAT 98
[2024-03-24 20:51] VITALS: BP 180/79; PULSE 90; RESP 14; TEMP 36.4; O2SAT 99
[2024-03-24 23:03] LABS: Bedside Glucose 119 mg/dL (74-106)
[2024-03-24 23:09] VITALS: BP 131/87; PULSE 82; RESP 18; TEMP 36.4; O2SAT 95
[2024-03-24 23:35] VITALS: BMI 23.1
[2024-03-25] MEDS: levETIRAcetam 500 MG Tablet PO ×3 (01:27→21:57)
[2024-03-25 03:09] VITALS: BMI 23.0
[2024-03-25] MEDS: Acetaminophen 325 MG Tablet 650 MG PO (06:06)
[2024-03-25 06:17] VITALS: BP 168/89; PULSE 94; RESP 18; TEMP 36.8; O2SAT 97
[2024-03-25 06:50] LABS: Bedside Glucose 116 mg/dL (74-106)
[2024-03-25 07:09] LABS: Absolute Lymphocyte Count 1.06 X10^3/uL (0.83-4.51); Basophil# 0.07 X10^3/uL; Basophil% 1.2 % (0-1); Eosinophil# 0.17 X10^3/uL; Eosinophils% 2.8 % (0-5); Hematocrit 35.5 % (37-47); Hemoglobin 11.7 g/dL (12.0-15.0); Lymphocyte # 1.06 X10^3/ul (0.83-4.51); Lymphocyte % 17.5 % (19-41); Mean Corpuscular Hgb 29.5 pg (27.0-32.0); Mean Corpuscular Volume 89.6 fL (81-99); Mean Platelet Vol. 9.1 fl (6.2-12.0); Monocyte# 0.75 X10^3/uL; Monocyte% 12.4 % (0-10); NRBC Flagged by Analyzer 0 % (0-5); Neutrophil # 3.98 X10^3/uL (2.7-7.7); Neutrophil % 65.6 % (47-70); Platelet Count 366 K/mm3 (150-450); RBC Distribution Width CV 11.9 % (11.6-14.6); RBC Distribution Width SD 38.4 fl (35.1-43.9); Red Blood Count 3.96 M/mm3 (4.2-5.4); White Blood Count 6.1 K/mm3 (4.4-11.0)
[2024-03-25 08:04] LABS: Anion Gap 8 (5-15); BUN 13 mg/dL (7-18); BUN/Creat Ratio 16.4 RATIO (10-20); Calcium,Total 9.3 mg/dL (8.5-10.1); Chloride 105 mmol/L (98-107); Creatinine, Serum 0.79 mg/dL (0.55-1.02); EST Glomerular Filtration Rate 74 mL/min (>60); Est Glom Filt Rate - Afr Amer 90 mL/min (>60); Estimated Creatinine Clearance 49.24 ml/min; Glucose 120 mg/dL (74-106); Potassium 3.5 mmol/L (3.5-5.1); Sodium Level 139 mmol/L (136-145)
[2024-03-25 08:11] VITALS: BP 167/64; PULSE 96; RESP 18; TEMP 35.9; O2SAT 97
[2024-03-25 08:38] VITALS: BMI 23.0
[2024-03-25] MEDS: QUEtiapine 25 MG Tablet PO (09:08)
[2024-03-25] MEDS: Aspirin 81 MG TAB.CHEW PO (09:09)
[2024-03-25] MEDS: Anastrozole 1 MG TABLET PO (09:10)
[2024-03-25] MEDS: Ceftriaxone 1 GM/50 ML BAG IV (09:16)
[2024-03-25] MEDS: 0.9% Saline Lock 10 ML Syringe IV (09:18)
--- NOTE | 2024-03-25 09:38 | PCM.PN.HOSP ---
Subjective Subjective Continues to be agitated Objective Data Objective Data Vital Signs: Vital Signs Temp Pulse Resp BP Pulse Ox O2 Del Method O2 Flow Rate 96.7 F L 96 18 167/64 H 97 Room Air 2 03/25/24 08:11 03/25/24 08:11 03/25/24 08:11 03/25/24 08:11 03/25/24 08:11 03/25/24 08:16 03/22/24 10:17 FiO2 95 03/22/24 13:48 Oxygen Flow Rate (L/min) 2 Oxygen Delivery Method Room Air Weight: 134 lb 4.184 oz Body Mass Index (BMI) 23.0 Intake & Output: Intake and Output for Last 24 Hours 03/24/24 03/25/24 03/26/24 03:59 03:59 03:59 Intake Total 410 / 410 50 / 50 Balance 410 / 410 50 / 50 Lab / Micro Data 03/25/24 06:41 03/25/24 06:41 Labs: Laboratory Results - last 24 hr 03/24/24 11:33: POC Glucose 109 H 03/24/24 20:56: POC Glucose 119 H 03/25/24 06:13: POC Glucose 116 H 03/25/24 06:41: WBC 6.1, RBC 3.96 L, Hgb 11.7 L, Hct 35.5 L, MCV 89.6, MCH 29.5, MCHC 33.0, RDW Std Deviation 38.4, RDW Coeff of Fabian 11.9, Plt Count 366, MPV 9.1, Immature Gran % (Auto) 0.500, Neut % (Auto) 65.6, Lymph % (Auto) 17.5 L, [place] % (Auto) 12.4 H, Eos % (Auto) 2.8, Baso % (Auto) 1.2 H, Absolute Neuts (auto) 4.0, Absolute Lymphs (auto) 1.06, Nucleated RBC % 0, Sodium 139, Potassium 3.5, Chloride 105, Carbon Dioxide 26.0, Anion Gap 8, BUN 13, Creatinine 0.79, Estim Creat Clear Calc 49.24, Est GFR (MDRD) Af Amer 90, Est GFR (MDRD) Non-Af 74, BUN/Creatinine Ratio 16.4, Glucose 120 H, Calcium 9.3 Micro: Microbiology 03/22/24 11:00 Urine, Catheterized Urine Culture - Final Klebsiella pneumoniae sp pneum Escherichia coli Rhythm Strip Rhythm Strip: Sinus Rhythm Rate: 95 Ectopy: PAC(s) Physical Exam Narrative General: Alert, confused and disoriented, combative today HEENT: [place] in the left scalp under her hair, PERRLA, EOMI, Normocephalic Oral: Moist Mucosa Neck: Supple, No JVD Lungs: Diminished, Normal air movement, No rhonchi, No wheeze, No rales Cardiovascular: Regular rate, Regular Rhythm, Normal S1, Normal S2, No murmurs Abdomen: Soft, Non Tender, Non-Distended, No Hepato-splenomegaly Extremities: No edema, Capillary Refill Less than 3 Seconds Skin: No rashes, No breakdown Musculoskeletal: No Tenderness to Palpation of Joints or Extremities Neurological: Moves all extremities but cannot follow exam Psych/Mental Status: Visual hallucinations Assessment & Plan Assessment/Plan (1) Acute CVA (cerebrovascular accident): PLAN: Plan 1. Recurrent acute encephalopathy with right-sided facial droop and aphasia with right-sided hemiaplasia with possible stroke left thalamus with UTI due to E. coli and Klebsiella and possible seizures/dementia/depression ? All of these neurological signs appear to have resolved except for the encephalopathy ? Both Klebsiella and E. coli are sensitive to Rocephin, will continue for another couple of days as I do not feel that she would consistently take oral antibiotics ? MRI did demonstrate a left thalamic stroke from radiology read however in discussion with neurology they were not 100% convinced that there was strokes ? PT/OT ? Will increase her Seroquel to 50 mg twice daily ? Will not tolerate an EEG at this time ? Continue with her home Zoloft ? Previous CTA of the head and neck demonstrated an internal carotid artery aneurysm given her dementia unlikely to be a great candidate for surgical intervention ? Will plan for an event monitor on discharge 2. Essential HTN/HLD ? Continue with her home blood pressure medications ? Will monitor make adjustments as necessary ? Continue with Lipitor and aspirin 3. History of left invasive lobular carcinoma ? Continue with anastrozole ? Diagnosis was an ER/CO positive and 03/2023 and she underwent a partial mastectomy in April of that year DVT: Lovenox Charges/Coding Visit Charges Inpatient E&M: 21891 Subs Hosp L2
[2024-03-25 10:54] VITALS: BP 146/70; PULSE 86; RESP 16; TEMP 36.1; O2SAT 95
[2024-03-25] MEDS: Enoxaparin 40 MG/0.4 ML Syringe SC (10:59)
[2024-03-25 14:00] VITALS: BP 168/88; PULSE 93; RESP 16; TEMP 36.1; O2SAT 98
[2024-03-25] MEDS: Haloperidol Lactate 5 MG/ML Vial 2 MG IM (16:35)
--- NOTE | 2024-03-25 17:32 | NURSING ---
1725 Attempting to get vitals at this time. Pt is very agitated/combative with stimulation. Will attempt again later.
[2024-03-25] MEDS: QUEtiapine 25 MG Tablet 50 MG PO (17:45)
[2024-03-25 21:55] VITALS: BP 158/101; PULSE 103; RESP 18; TEMP 36.3; O2SAT 98
[2024-03-25] MEDS: traZODone 50 MG Tablet PO (21:56)
[2024-03-26] MEDS: MELATONIN 3 MG TABLET PO (00:18)
[2024-03-26 00:37] VITALS: BMI 23.0
[2024-03-26 02:55] VITALS: BP 152/92; PULSE 92; RESP 18; TEMP 36.3; O2SAT 99
[2024-03-26 03:23] VITALS: BMI 23.0
[2024-03-26] MEDS: Sertraline 50 MG Tablet PO (09:06)
[2024-03-26] MEDS: Sertraline 50 MG Tablet 25 MG PO (09:06)
[2024-03-26] MEDS: QUEtiapine 25 MG Tablet 50 MG PO ×2 (09:06→17:11)
[2024-03-26 09:07] VITALS: PULSE 110; RESP 17; TEMP 36.4; O2SAT 98
[2024-03-26] MEDS: Ceftriaxone 1 GM/50 ML BAG IV (09:17)
[2024-03-26] MEDS: 0.9% Saline Lock 10 ML Syringe IV (09:19)
[2024-03-26] MEDS: Enoxaparin 40 MG/0.4 ML Syringe SC (09:20)
--- NOTE | 2024-03-26 09:50 | CASEMGMT ---
Social Work PHQ-9 not completed as pt is not able to answer the questions at this time. LURDES Saenz
--- NOTE | 2024-03-26 10:18 | PCM.PN.HOSP ---
Subjective Subjective No change, still confused and combative Objective Data Objective Data Vital Signs: Vital Signs Temp Pulse Resp BP Pulse Ox O2 Del Method O2 Flow Rate 97.6 F L 110 H 17 152/92 H 98 Room Air 2 03/26/24 09:07 03/26/24 09:07 03/26/24 09:07 03/26/24 02:55 03/26/24 09:07 03/26/24 09:07 03/22/24 10:17 FiO2 95 03/22/24 13:48 Oxygen Flow Rate (L/min) 2 Oxygen Delivery Method Room Air Weight: 134 lb 0.657 oz Body Mass Index (BMI) 23.0 Intake & Output: Intake and Output for Last 24 Hours 03/25/24 03/26/24 03/27/24 03:59 03:59 03:59 Intake Total 50 / 50 200 / 200 50 / 50 Balance 50 / 50 200 / 200 50 / 50 Lab / Micro Data 03/25/24 06:41 03/25/24 06:41 Micro: Microbiology 03/22/24 11:00 Urine, Catheterized Urine Culture - Final Klebsiella pneumoniae sp pneum Escherichia coli Rhythm Strip Rhythm Strip: Sinus Rhythm Rate: 95 Ectopy: PAC(s) Physical Exam Narrative General: Alert, confused and disoriented, combative today HEENT: Gabriel in the left scalp under her hair, PERRLA, EOMI, Normocephalic Oral: Moist Mucosa Neck: Supple, No JVD Lungs: Diminished, Normal air movement, No rhonchi, No wheeze, No rales Cardiovascular: Regular rate, Regular Rhythm, Normal S1, Normal S2, No murmurs Abdomen: Soft, Non Tender, Non-Distended, No Hepato-splenomegaly Extremities: No edema, Capillary Refill Less than 3 Seconds Skin: No rashes, No breakdown Musculoskeletal: No Tenderness to Palpation of Joints or Extremities Neurological: Moves all extremities but cannot follow exam Psych/Mental Status: Visual hallucinations Assessment & Plan Assessment/Plan (1) Acute CVA (cerebrovascular accident): PLAN: Plan 1. Recurrent acute encephalopathy with right-sided facial droop and aphasia with right-sided hemiaplasia with possible stroke left thalamus with UTI due to E. coli and Klebsiella and possible seizures/dementia/depression ? All of these neurological signs appear to have resolved except for the encephalopathy ? Both Klebsiella and E. coli are sensitive to Rocephin, will continue for another couple of days as I do not feel that she would consistently take oral antibiotics ? MRI did demonstrate a left thalamic stroke from radiology read however in discussion with neurology they were not 100% convinced that there was strokes ? PT/OT ? Will increase her Seroquel to 50 mg twice daily ? Will not tolerate an EEG at this time ? Continue with her home Zoloft ? Previous CTA of the head and neck demonstrated an internal carotid artery aneurysm given her dementia unlikely to be a great candidate for surgical intervention ? Will plan for an event monitor on discharge 2. Essential HTN/HLD ? Continue with her home blood pressure medications ? Will monitor make adjustments as necessary ? Continue with Lipitor and aspirin 3. History of left invasive lobular carcinoma ? Continue with anastrozole ? Diagnosis was an ER/UT positive and 03/2023 and she underwent a partial mastectomy in April of that year DVT: Lovenox Charges/Coding Visit Charges Inpatient E&M: 33731 Subs Hosp L1
[2024-03-26 12:05] VITALS: BMI 23.0
--- NOTE | 2024-03-26 12:30 | CASEMGMT ---
Destination Sign Repairer- JASON called daughter, Una, to discuss preference for d/c. Una expressed that [facility] has stated that they can care for pt with heightened behaviors; pt daughter is hesitant. Pt daughter discussed the options for if pt returns to [facility] and they are unable to accommodate care needs; SW provided education on options. At this time, preference is to try return to [facility]. Pt daughter will check-in prior to Friday to see if she needs to bring clothes in. JASON advised DCA to send updates to [facility]. WANDER Hernandez
--- NOTE | 2024-03-26 13:12 | CASEMGMT ---
Addendum entered by Marquita Melchor 03/26/24 13:49: Fax confirmation rec'd. Marquita Melchor DC Planning Asst. Original Note: Discharge Planning Updates faxed to [facility]. Per Aurea, patient can return to [facility] and they are able to manage new behaviors. SW updated. Marquita Melchor DC Planning Asst.
[2024-03-26 15:17] VITALS: BP 160/90; PULSE 101; RESP 16; TEMP 36.7; O2SAT 97
[2024-03-26] MEDS: Atorvastatin Calcium 40 MG Tablet PO (20:35)
[2024-03-26] MEDS: levETIRAcetam 500 MG Tablet PO (20:35)
[2024-03-26] MEDS: traZODone 50 MG Tablet PO (20:35)
[2024-03-26 21:15] VITALS: BP 162/92; PULSE 108; RESP 16; TEMP 36.2; O2SAT 98
[2024-03-26 23:20] VITALS: BMI 23.0
[2024-03-27 03:00] VITALS: BP 154/106; PULSE 111; RESP 17; TEMP 36.2; O2SAT 97
[2024-03-27 05:35] VITALS: BMI 21.8
[2024-03-27] MEDS: 0.9% Saline Lock 10 ML Syringe IV ×2 (08:24→18:13)
[2024-03-27] MEDS: Ceftriaxone 1 GM/50 ML BAG IV (08:30)
[2024-03-27] MEDS: QUEtiapine 25 MG Tablet 50 MG PO ×2 (08:48→17:40)
--- NOTE | 2024-03-27 10:21 | PCM.PN.HOSP ---
Subjective Subjective Remains agitated and delirious Objective Data Objective Data Vital Signs: Vital Signs Temp Pulse Resp BP Pulse Ox O2 Del Method O2 Flow Rate 97.2 F L 111 H 17 154/106 H 97 Room Air 2 03/27/24 03:00 03/27/24 03:00 03/27/24 03:00 03/27/24 03:00 03/27/24 03:00 03/27/24 07:40 03/22/24 10:17 FiO2 95 03/22/24 13:48 Oxygen Flow Rate (L/min) 2 Oxygen Delivery Method Room Air Weight: 126 lb 15.78 oz Body Mass Index (BMI) 21.8 Intake & Output: Intake and Output for Last 24 Hours 03/26/24 03/27/24 03/28/24 03:59 03:59 03:59 Intake Total 200 / 200 270 / 270 50 / 50 Output Total 0 / 0 Balance 200 / 200 270 / 270 50 / 50 Lab / Micro Data 03/25/24 06:41 03/25/24 06:41 Micro: Microbiology 03/22/24 11:00 Urine, Catheterized Urine Culture - Final Klebsiella pneumoniae sp pneum Escherichia coli Rhythm Strip Rhythm Strip: Sinus Rhythm Rate: 95 Ectopy: PAC(s) Physical Exam Narrative General: Alert, confused and disoriented, combative today HEENT: [place] in the left scalp under her hair, PERRLA, EOMI, Normocephalic Oral: Moist Mucosa Neck: Supple, No JVD Lungs: Diminished, Normal air movement, No rhonchi, No wheeze, No rales Cardiovascular: Regular rate, Regular Rhythm, Normal S1, Normal S2, No murmurs Abdomen: Soft, Non Tender, Non-Distended, No Hepato-splenomegaly Extremities: No edema, Capillary Refill Less than 3 Seconds Skin: No rashes, No breakdown Musculoskeletal: No Tenderness to Palpation of Joints or Extremities Neurological: Moves all extremities but cannot follow exam Psych/Mental Status: Visual hallucinations Assessment & Plan Assessment/Plan (1) Acute CVA (cerebrovascular accident): PLAN: Plan 1. Recurrent acute encephalopathy with right-sided facial droop and aphasia with right-sided hemiaplasia with stroke left thalamus with UTI due to E. coli and Klebsiella and possible seizures/dementia/depression ? All of these neurological signs appear to have resolved except for the encephalopathy ? Both Klebsiella and E. coli are sensitive to Rocephin, will continue for another couple of days as I do not feel that she would consistently take oral antibiotics ? MRI did demonstrate a left thalamic stroke ? PT/OT ? Will increase her Seroquel to 50 mg twice daily ? Will not tolerate an EEG at this time ? Continue with her home Zoloft ? Previous CTA of the head and neck demonstrated an internal carotid artery aneurysm given her dementia unlikely to be a great candidate for surgical intervention ? Will plan for an event monitor on discharge 2. Essential HTN/HLD ? Continue with her home blood pressure medications ? Will monitor make adjustments as necessary ? Continue with Lipitor and aspirin 3. History of left invasive lobular carcinoma ? Continue with anastrozole ? Diagnosis was an ER/GA positive and 03/2023 and she underwent a partial mastectomy in April of that year DVT: Lovenox Charges/Coding Visit Charges Inpatient E&M: 14553 Subs Hosp L1
[2024-03-27 12:00] VITALS: BP 153/80; PULSE 114; RESP 18; TEMP 36.6; O2SAT 99
[2024-03-27 13:13] VITALS: BMI 21.8
[2024-03-27] MEDS: LORazepam 2 MG/ML Syringe IV (18:13)
[2024-03-27 19:35] VITALS: RESP 16; O2SAT 97
[2024-03-27 19:45] VITALS: BP 173/84; PULSE 106; RESP 16; TEMP 36.3; O2SAT 97
[2024-03-27] MEDS: Atorvastatin Calcium 40 MG Tablet PO (21:04)
[2024-03-27] MEDS: levETIRAcetam 500 MG Tablet PO (21:04)
[2024-03-27] MEDS: traZODone 50 MG Tablet PO (21:04)
[2024-03-28 02:46] VITALS: BP 144/103; PULSE 96; RESP 16; TEMP 36.3; O2SAT 96
[2024-03-28 02:54] VITALS: BMI 21.8
[2024-03-28 03:10] VITALS: BMI 22.0
[2024-03-28 05:50] LABS: Absolute Lymphocyte Count 1.19 X10^3/uL (0.83-4.51); Absolute Neutrophil Count 5.8 X10^3/uL (2.0-7.7); Basophil% 1.2 % (0-1); Eosinophil# 0.12 X10^3/uL; Eosinophils% 1.5 % (0-5); Hematocrit 39.9 % (37-47); Hemoglobin 12.8 g/dL (12.0-15.0); Lymphocyte # 1.19 X10^3/ul (0.83-4.51); Lymphocyte % 14.5 % (19-41); Mean Corp Hgb Conc 32.1 g/dL (32-36); Mean Corpuscular Volume 90.3 fL (81-99); Monocyte# 0.97 X10^3/uL; Monocyte% 11.8 % (0-10); NRBC Flagged by Analyzer 0 % (0-5); Neutrophil # 5.81 X10^3/uL (2.7-7.7); Neutrophil % 70.5 % (47-70); Platelet Count 441 K/mm3 (150-450); RBC Distribution Width CV 12.3 % (11.6-14.6); Red Blood Count 4.42 M/mm3 (4.2-5.4); White Blood Count 8.2 K/mm3 (4.4-11.0)
[2024-03-28 06:21] LABS: Ammonia < 10.0 umol/L (11-32)
[2024-03-28 06:22] LABS: ALB/GLOB Ratio 0.7 RATIO (0.9-2.4); AST(SGOT) 36 U/L (15-37); Alanine Aminotransfer ALT/SGPT 37 U/L (13-56); Albumin, Serum 3.2 g/dL (3.2-5.0); Alkaline Phosphatase 79 U/L (45-117); Anion Gap 10 (5-15); BUN 22 mg/dL (7-18); BUN/Creat Ratio 18.8 RATIO (10-20); Calcium,Total 9.9 mg/dL (8.5-10.1); Chloride 107 mmol/L (98-107); Creatinine, Serum 1.17 mg/dL (0.55-1.02); EST Glomerular Filtration Rate 47 mL/min (>60); Est Glom Filt Rate - Afr Amer 57 mL/min (>60); Estimated Creatinine Clearance 33.67 ml/min; Globulin 4.6 g/dL (2.2-4.2); Glucose 129 mg/dL (74-106); Magnesium 1.8 mg/dL (1.6-2.6); Phosphorus 3.6 mg/dL (2.5-4.9); Potassium 3.3 mmol/L (3.5-5.1); Protein, Total 7.8 g/dL (6.4-8.2); Sodium Level 143 mmol/L (136-145)
[2024-03-28] MEDS: QUEtiapine 25 MG Tablet 50 MG PO ×2 (07:27→16:54)
[2024-03-28] MEDS: Aspirin 81 MG TAB.CHEW PO (07:33)
[2024-03-28] MEDS: Sertraline 50 MG Tablet PO (07:33)
[2024-03-28] MEDS: Sertraline 50 MG Tablet 25 MG PO (07:33)
[2024-03-28] MEDS: Anastrozole 1 MG TABLET PO (07:34)
[2024-03-28] MEDS: levETIRAcetam 500 MG Tablet PO ×2 (07:34→21:47)
[2024-03-28] MEDS: Cyanocobalamin (B12) 1,000 MCG/ML Vial 1000 MCG IM (07:42)
[2024-03-28] MEDS: Enoxaparin 40 MG/0.4 ML Syringe SC (07:45)
[2024-03-28 08:05] VITALS: BP 138/98; PULSE 112; RESP 18; TEMP 36.1; O2SAT 97
[2024-03-28 09:40] VITALS: BMI 22.0
[2024-03-28] MEDS: Ceftriaxone 1 GM/50 ML BAG IV (09:43)
[2024-03-28] MEDS: 0.9% Saline Lock 10 ML Syringe IV (09:43)
--- NOTE | 2024-03-28 10:31 | PN.HOSP_ITS ---
Subjective Subjective Remains combative, had to be given Ativan last evening Objective Data Objective Data Vital Signs: Vital Signs Temp Pulse Resp BP Pulse Ox O2 Del Method O2 Flow Rate 97 F L 112 H 18 138/98 H 97 Room Air 2 03/28/24 08:05 03/28/24 08:05 03/28/24 08:05 03/28/24 08:05 03/28/24 08:05 03/28/24 08:05 03/22/24 10:17 FiO2 95 03/22/24 13:48 Oxygen Flow Rate (L/min) 2 Oxygen Delivery Method Room Air Weight: 128 lb 4.944 oz Body Mass Index (BMI) 22.0 Intake & Output: Intake and Output for Last 24 Hours 03/27/24 03/28/24 03/29/24 03:59 03:59 03:59 Intake Total 270 / 270 65 / 65 50 / 50 Output Total 0 / 0 Balance 270 / 270 65 / 65 50 / 50 Lab / Micro Data 03/28/24 05:20 03/28/24 05:20 Labs: Laboratory Results - last 24 hr 03/28/24 05:20: WBC 8.2, RBC 4.42, Hgb 12.8, Hct 39.9, MCV 90.3, MCH 29.0, MCHC 32.1, RDW Std Deviation 40.0, RDW Coeff of Fabian 12.3, Plt Count 441, MPV 9.0, Immature Gran % (Auto) 0.500, Neut % (Auto) 70.5 H, Lymph % (Auto) 14.5 L, [place] % (Auto) 11.8 H, Eos % (Auto) 1.5, Baso % (Auto) 1.2 H, Absolute Neuts (auto) 5.8, Absolute Lymphs (auto) 1.19, Nucleated RBC % 0, Sodium 143, Potassium 3.3 L , Chloride 107, Carbon Dioxide 26.0, Anion Gap 10, BUN 22 H, Creatinine 1.17 H, Estim Creat Clear Calc 33.67, Est GFR (MDRD) Af Amer 57 L, Est GFR (MDRD) Non-Af 47 L, BUN/Creatinine Ratio 18.8, Glucose 129 H, Calcium 9.9, Phosphorus 3.6, Magnesium 1.8, Total Bilirubin 0.80, AST 36, ALT 37, Alkaline Phosphatase 79, A mmonia < 10.0 L, Total Protein 7.8, Albumin 3.2, Globulin 4.6 H, A lbumin/Globulin Ratio 0.7 L Micro: Microbiology 03/22/24 11:00 Urine, Catheterized Urine Culture - Final Klebsiella pneumoniae sp pneum Escherichia coli Rhythm Strip Rhythm Strip: Sinus Rhythm Rate: 95 Ectopy: PAC(s) Physical Exam Narrative General: Alert, confused and disoriented, combative today HEENT: [place] in the left scalp under her hair, PERRLA, EOMI, Normocephalic Oral: Moist Mucosa Neck: Supple, No JVD Lungs: Diminished, Normal air movement, No rhonchi, No wheeze, No rales Cardiovascular: Regular rate, Regular Rhythm, Normal S1, Normal S2, No murmurs Abdomen: Soft, Non Tender, Non-Distended, No Hepato-splenomegaly Extremities: No edema, Capillary Refill Less than 3 Seconds Skin: No rashes, No breakdown Musculoskeletal: No Tenderness to Palpation of Joints or Extremities Neurological: Moves all extremities but cannot follow exam Psych/Mental Status: Visual hallucinations Assessment & Plan Assessment/Plan (1) Acute CVA (cerebrovascular accident): PLAN: Plan 1. Recurrent acute encephalopathy with right-sided facial droop and aphasia with right-sided hemiaplasia with stroke left thalamus with UTI due to E. coli and Klebsiella and possible seizures/dementia/depression ? All of these neurological signs appear to have resolved except for the encephalopathy ? Both Klebsiella and E. coli are sensitive to Rocephin, will continue for another couple of days as I do not feel that she would consistently take oral antibiotics ? MRI did demonstrate a left thalamic stroke ? PT/OT ? Continue with Seroquel at 50 mg p.o. twice daily ? Will not tolerate an EEG at this time ? Her vitamin B12 is borderline so we will start her on B12 injections, ammonia and liver functions were normal ? Continue with her home Zoloft ? Previous CTA of the head and neck demonstrated an internal carotid artery aneurysm given her dementia unlikely to be a great candidate for surgical intervention ? Will plan for an event monitor on discharge 2. Essential HTN/HLD ? Continue with her home blood pressure medications ? Will monitor make adjustments as necessary ? Continue with Lipitor and aspirin 3. History of left invasive lobular carcinoma ? Continue with anastrozole ? Diagnosis was an ER/CA positive and 03/2023 and she underwent a partial mastectomy in April of that year DVT: [place] Charges/Coding Visit Charges Inpatient E&M: 35589 Subs Hosp L2
[2024-03-28 11:26] VITALS: BP 149/60; PULSE 102; RESP 16; TEMP 36.1; O2SAT 98
[2024-03-28 14:40] VITALS: BP 140/71; PULSE 104; RESP 16; TEMP 36.5; O2SAT 94
[2024-03-28 19:45] VITALS: BP 157/78; PULSE 97; RESP 18; TEMP 36.6; O2SAT 98
[2024-03-28] MEDS: Atorvastatin Calcium 40 MG Tablet PO (21:47)
[2024-03-28] MEDS: traZODone 50 MG Tablet PO (21:47)
[2024-03-28] MEDS: MELATONIN 3 MG TABLET PO (21:54)
[2024-03-29 00:34] VITALS: BMI 22.0
[2024-03-29 04:18] VITALS: BP 171/63; PULSE 100; RESP 18; TEMP 36.6; O2SAT 98
[2024-03-29 04:54] VITALS: BMI 22.0
[2024-03-29 05:41] LABS: Absolute Lymphocyte Count 0.97 X10^3/uL (0.83-4.51); Absolute Neutrophil Count 6.8 X10^3/uL (2.0-7.7); Basophil# 0.11 X10^3/uL; Basophil% 1.2 % (0-1); Eosinophil# 0.15 X10^3/uL; Eosinophils% 1.7 % (0-5); Hematocrit 40.7 % (37-47); Hemoglobin 13.1 g/dL (12.0-15.0); Lymphocyte # 0.97 X10^3/ul (0.83-4.51); Lymphocyte % 10.8 % (19-41); Mean Corp Hgb Conc 32.2 g/dL (32-36); Mean Corpuscular Hgb 29.2 pg (27.0-32.0); Mean Corpuscular Volume 90.6 fL (81-99); Mean Platelet Vol. 9.1 fl (6.2-12.0); Monocyte# 0.84 X10^3/uL; Monocyte% 9.4 % (0-10); NRBC Flagged by Analyzer 0 % (0-5); Neutrophil # 6.83 X10^3/uL (2.7-7.7); Neutrophil % 76.3 % (47-70); Platelet Count 481 K/mm3 (150-450); RBC Distribution Width CV 12.4 % (11.6-14.6); RBC Distribution Width SD 40.7 fl (35.1-43.9); Red Blood Count 4.49 M/mm3 (4.2-5.4)
[2024-03-29 06:13] LABS: Anion Gap 8 (5-15); BUN 25 mg/dL (7-18); BUN/Creat Ratio 26.1 RATIO (10-20); Calcium,Total 9.7 mg/dL (8.5-10.1); Chloride 109 mmol/L (98-107); Creatinine, Serum 0.96 mg/dL (0.55-1.02); EST Glomerular Filtration Rate 60 mL/min (>60); Est Glom Filt Rate - Afr Amer 72 mL/min (>60); Estimated Creatinine Clearance 41.03 ml/min; Glucose 137 mg/dL (74-106); Potassium 3.2 mmol/L (3.5-5.1); Sodium Level 145 mmol/L (136-145)
[2024-03-29 06:32] VITALS: BMI 21.4
--- NOTE | 2024-03-29 09:31 | CASEMGMT ---
Patient is not doing well with therapy. JASON asked Marquita d/c planning aide to send updates to [facility] to make sure they are able to manage patient. JASON also called patient's daughter Una and let her know patient is really weak and JASON is not sure if patient will be able to get in and out of a car. JASON also let Una know that JASON is confirming with [facility] that they are able to manage patient. Una will bring in clothes for patient. JASON will likely set up transport for patient. Plan: d/c back to [facility] as long as [facility] feels they can manage patient. Eliana Houston RUBBER TIRE CURER HENNY
--- NOTE | 2024-03-29 09:40 | CASEMGMT ---
Addendum entered by Marquita Melchor 03/29/24 10:09: Fax confirmation rec'd. Marquita Melchor DC Planning Asst. Original Note: Discharge Planning Updates faxed to [facility], Attn; Deepa Rosas. Noted that patient will likely dc today and to reach out to Eliana with any concerns. Marquita Melchor DC Planning Asst.
--- NOTE | 2024-03-29 09:40 | PCM.DC.SUM ---
Providers Date of Admission: 03/22/24 Date of Discharge: 03/29/24 Primary Care Physician: SRI Iverson Consultations 03/21/24 05:24 Consult: Tele-Neurology Routine Consulting Provider: [facility] Reason for Consult: Acute Ischemic Stroke/TIA EMERGENT Consult: No MD Notified: Yes Date Notified: 03/21/24 Time Notified: 06:00 Method of Notification: Answering Service Nursing Unit Staff Notify [facility] of Tele-Neurology Consult: Yes Reason For Visit: ? CVA Diagnosis Discharge Diagnosis (1) Acute CVA (cerebrovascular accident): Status: Acute Code(s): I63.9 - Cerebral infarction, unspecified Medications at Discharge Home Medications sertraline 50 mg tablet 50 mg PO DAILY DEPRESSION 10/14/23 anastrozole 1 mg tablet 1 mg PO DAILY BREAST CANCER #90 TABLETS 12/01/23 cyclobenzaprine 10 mg tablet 10 mg PO TID PRN MUSCLE SPASMS 03/14/24 aspirin 81 mg chewable tablet 81 mg PO BREAKFAST 90 days #90 tabs 03/15/24 atorvastatin 40 mg tablet 40 mg PO QHS CHOLESTEROL 90 days #90 tabs 03/15/24 loperamide 2 mg capsule 2 mg PO Q4H PRN LOOSE STOOL 03/17/24 sertraline 25 mg tablet 25 mg PO DAILY DEPRESSION 03/17/24 trazodone 50 mg tablet 50 mg PO QHS DEPRESSION 03/17/24 amlodipine 10 mg tablet 10 mg PO DAILY BLOOD PRESSURE 30 days #0 tabs 03/19/24 hydralazine 50 mg tablet 50 mg PO BID BLOOD PRESSURE #30 tabs 03/19/24 losartan 100 mg tablet 100 mg PO DAILY BLOOD PRESSURE 30 days #0 tabs 03/19/24 cefdinir 300 mg capsule 300 mg PO BID #10 caps 03/29/24 food supplemt, lactose-reduced 0.08 gram-1.5 kcal/mL oral liquid (Ensure Plus High Protein) 120 ml PO TIDCM #0 mL 03/29/24 levetiracetam 500 mg tablet 500 mg PO BID 30 days #60 tabs 03/29/24 potassium chloride 20 mEq tablet,extended release(part/cryst) 20 meq PO BIDCM #20 tabs 03/29/24 quetiapine 25 mg tablet 50 mg (2 x 25 mg) PO 1000,1800 #60 tabs 03/29/24 Hospital Course Summary of Care Provided Minutes Spent on Discharge: 35 Hospital Course: Patient is a 78-year-old lady with multiple comorbidities admitted with recurrent aphasia right-sided weakness and reported facial droop and assessment of acute CVA was made patient did receive TNK and admitted to the intensive care unit. 1. Acute CVA ? Patient presented with aphasia and right-sided weakness and reported facial droop. Patient did receive TNK admitted to the intensive care unit. MRI performed did show left thalamic stroke. Was also seen in consultation by teleneuro recommendation was made for patient to undergo EEG however she did not tolerate it. Patient was empirically placed on Keppra. Patient did receive PT/OT as well as speech therapy evaluation and treatment 2. Acute cystitis ? Grew E. coli and Klebsiella managed with ceftriaxone prescription written for cefdinir on discharge 3. Acute encephalopathy ? Secondary to above patient was placed on Remeron at night as was on hydroxyzine discontinued 4. Fall with scalp laceration ? Patient had sutures placed removed prior to discharge 5. Hypokalemia ? Corrected per protocol 6. History of left invasive breast lobular carcinoma ? Status post partial mastectomy patient is currently on anastrozole. Remains in remission 7. Anemia - Secondary to chronic disorder monitoring H&H and transfuse if patient becomes symptomatic or hemoglobin falls below 7 8. Dyslipidemia -Patient is on statin therapy, continued at home dose 9. Hypertension - Blood pressure controlled, home medications continued with dose adjustment as needed 10. Depression with anxiety ? Home meds continued 11. DVT prophylaxis ? Lovenox Physical Exam Narrative GENERAL: cooperative HEENT: normocephalic, geo in the left scalp EYES; Anicteric, Normal Conjunctiva NECK; supple, normal thyroid, RESPIRATORY: Diminished to auscultation CARDIOVASCULAR: Regular S1 S2, GI: soft, normoactive bowel sounds, : No Renal angle tenderness; EXTREMITIES: No edema, no clubbing, NEURO: Awake; no lateralizing signs. SKIN: No Rash PSYCH; Flat affect Weight / BMI Weight Weight: 56.7 kg Body Mass Index (BMI) 21.4 ABG / Lab / Microbiology Data 03/29/24 04:40 03/29/24 04:40 Laboratory: Laboratory Results - last 24 hr 03/29/24 04:40: WBC 9.0, RBC 4.49, Hgb 13.1, Hct 40.7, MCV 90.6, MCH 29.2, MCHC 32.2, RDW Std Deviation 40.7, RDW Coeff of Fabian 12.4, Plt Count 481 H, MPV 9.1, Immature Gran % (Auto) 0.600, Neut % (Auto) 76.3 H, Lymph % (Auto) 10.8 L, [place] % (Auto) 9.4, Eos % (Auto) 1.7, Baso % (Auto) 1.2 H, Absolute Neuts (auto) 6.8, Absolute Lymphs (auto) 0.97, Nucleated RBC % 0, Sodium 145, Potassium 3.2 L, Chloride 109 H, Carbon Dioxide 28.0, Anion Gap 8, BUN 25 H, Creatinine 0.96, Estim Creat Clear Calc 41.03, Est GFR (MDRD) Af Amer 72, Est GFR (MDRD) Non-Af 60, BUN/Creatinine Ratio 26.1 H, Glucose 137 H, Calcium 9.7 Microbiology: Microbiology 03/22/24 11:00 Urine, Catheterized Urine Culture - Final Klebsiella pneumoniae sp pneum Escherichia coli D/C Instructions Discharge Diet: Low fat / Low cholesterol Discharge Activity: Return to Normal Activity Call your doctor if you observe: Fever of 101 or Higher, Shortness of breath, Fainting spells and Chest pain Meaningful Use Info Meaningful Use Meaningful Use Diagnoses (Choose all that apply): Ischemic CVA CVA Therapy Assessed for PT,OT and/or ST?: Yes Ischemic Stroke Antithrombotic order at d/c?: Yes Dx of Atrial fib/flutter?: No Statin Dosing Therapy Reference: STATIN DOSE THERAPY REFERENCE: * Patients > 75 years receive moderate or high dose statin therapy. * Patients 75 years or YOUNGER should receive HIGH intensity statin dose unless contraindicated. You will be required to document reason for non-treatment if statin daily dose does not meet guidelines. HIGH DOSE STATIN THERAPY DAILY Atorvastatin > than or = to 40 mg Rosuvastatin > than or = to 20 mg Amlodipine + Atorvastatin > than or = to 2.5/40 mg Ezetimibe + Simvastatin 10/80 mg Simvastatin 80mg Statins at discharge?: Yes Primary Dx Acute Ischemic CVA?: Yes IV thrombolytic ordered during stay?: Yes Discharge Plan Admission Admit Date/Time: 03/22/24 13:52 Attending Provider: West Dobson Primary Care Provider: Ruthann Mcdowell NP Consulting Providers: Jose J Wing; Faye Luo; Diana Simmons; Porter Schulte; Lizandro Hernandez; Lee Capellan; BEBETO MORENO; Tiffanie Valerio; Christine Lazcano; Warren Scott; Latonya Barnes; Darien Morgan; Elyse Fierro; Karlene Shaw; Ibrahima Gardner; Jannette Barahona; Uli Benson; Mikey Shea; Eitan Pulliam; Ish Miranda; Shirleycolette Hbobs; Lenny Castillo; Mary Hines; Jem Acosta; Peggy Jovel; Cara Oh; Tammy Clay; Jefferson Dawkins Discharge Orders/Prescriptions Prescriptions: New quetiapine 25 mg Tablet 50 mg PO 1000,1800 Qty: 60 0RF levetiracetam 500 mg Tablet 500 mg PO BID 30 Days Qty: 60 0RF potassium chloride 20 mEq Tablet,Er Particles/Crystals 20 meq PO BIDCM Qty: 20 0RF Ensure Plus High Protein 0.08 gram-1.5 kcal/mL Liquid 120 ml PO TIDCM Qty: 0 0RF cefdinir 300 mg capsule 300 mg PO BID Qty: 10 0RF Continued sertraline 50 mg tablet 50 mg PO DAILY Rx Instructions: TAKE ONE 50MG TABLET AND ONE 25MG TABLET BY MOUTH TOGETHER ONCE DAILY FOR A TOTAL DAILY DOSE OF 75MG. cyclobenzaprine 10 mg tablet 10 mg PO TID PRN (Reason: MUSCLE SPASMS ) atorvastatin 40 mg Tablet 40 mg PO QHS 90 Days Qty: 90 1RF aspirin 81 mg Tablet,Chewable 81 mg PO BREAKFAST 90 Days Qty: 90 1RF loperamide 2 mg capsule 2 mg PO Q4H PRN (Reason: LOOSE STOOL ) sertraline 25 mg tablet 25 mg PO DAILY Rx Instructions: TAKE ONE 50MG TABLET AND ONE 25MG TABLET BY MOUTH TOGETHER ONCE DAILY FOR A TOTAL DAILY DOSE OF 75MG. trazodone 50 mg tablet 50 mg PO QHS amlodipine 10 MG tablet 10 mg PO DAILY 30 Days Qty: 0 0RF Rx Instructions: Hold for SBP less than 120 mmHg hydralazine 50 MG tablet 50 mg PO BID Qty: 30 0RF Rx Instructions: Hold for SBP less than 130 mmHg losartan 100 mg tablet 100 mg PO DAILY 30 Days Qty: 0 0RF Rx Instructions: Hold for SBP less than 120 mmHg anastrozole 1 mg tablet 1 mg PO DAILY Qty: 90 3RF Discontinued hydroxyzine pamoate 25 mg capsule 25 mg PO Q6H PRN (Reason: ANXIETY ) hydroxyzine pamoate 25 mg capsule 25 mg PO QPM Other Ambulatory Orders: 30 Day Event Recorder Preventi (Urgent) Timeframe: 1 Day Facility: [facility] [place] - Location: Cardiovascular Services Ordered By: Dr. West Dobson Referrals / Follow Up: Ruthann Mcdowell NP, CONDUCTOR/BRAKEMAN-C [Primary Care Provider] - Within 1 Week Disposition Disposition (needs filled in before D/C Order can be placed): NonSkilled NH/Intermed Care Charges/Coding Visit Charges Inpatient E&M: 75154 Disch Hosp >30min
[2024-03-29] MEDS: 0.9% Saline Lock 10 ML Syringe IV (09:56)
[2024-03-29] MEDS: Acetaminophen 325 MG Tablet 650 MG PO (09:56)
[2024-03-29] MEDS: Anastrozole 1 MG TABLET PO (09:57)
[2024-03-29] MEDS: Potassium Chloride Oral Tablet 20 MEQ 40 MEQ PO (09:57)
[2024-03-29] MEDS: levETIRAcetam 500 MG Tablet PO (09:58)
[2024-03-29] MEDS: Aspirin 81 MG TAB.CHEW PO (09:58)
[2024-03-29] MEDS: Enoxaparin 40 MG/0.4 ML Syringe SC (09:59)
[2024-03-29] MEDS: Sertraline 50 MG Tablet PO (09:59)
[2024-03-29] MEDS: QUEtiapine 25 MG Tablet 50 MG PO (09:59)
[2024-03-29 10:00] VITALS: BP 167/99; PULSE 104; RESP 18; TEMP 36; O2SAT 100
[2024-03-29] MEDS: Sertraline 50 MG Tablet 25 MG PO (10:00)
[2024-03-29 10:05] VITALS: BP 154/75; PULSE 99; RESP 17; TEMP 36.6; O2SAT 100
--- NOTE | 2024-03-29 10:54 | NURSING ---
03/29/24@1050- removed a total of 7 geo from left scalp laceration from 03/19. pt tolerated well with minimal bleeding noted to anterior wound. after geo were removed the wound was cleaned with chg and bacitracin applied to wound bed. bleeding controlled at this time. will continue to monitor.
--- NOTE | 2024-03-29 10:55 | CASEMGMT ---
Deepa from [facility] came to [facility]. Deepa spoke with patient's daughter Una and Una would like patient to have Hospice at [facility]. SW called Una and she confirmed this plan. JASON let Una know SW will make a referral and someone will call her to set up a meeting time. Una was in agreement with this plan. Eliana INMAN
--- NOTE | 2024-03-29 11:05 | CASEMGMT ---
SW spoke with physician and he is agreeable to Hospice referral. SW called [facility] with referral and also faxed information. Eliana Houston GAS PLANT TECHNICIAN HENNY
--- NOTE | 2024-03-29 11:11 | PHA.DC.MR.R ---
Pharmacy [place] Med Reconciliation Pharmacy Service has performed discharge medication reconciliation for this patient. D/C to [facility]. The patient's discharge medication list was reviewed for discrepancies and discrepancies were resolved. Medications at Discharge Home Medications sertraline 50 mg tablet 50 mg PO DAILY DEPRESSION 10/14/23 anastrozole 1 mg tablet 1 mg PO DAILY BREAST CANCER #90 TABLETS 12/01/23 cyclobenzaprine 10 mg tablet 10 mg PO TID PRN MUSCLE SPASMS 03/14/24 aspirin 81 mg chewable tablet 81 mg PO BREAKFAST heart health 90 days #90 tabs 03/15/24 atorvastatin 40 mg tablet 40 mg PO QHS CHOLESTEROL 90 days #90 tabs 03/15/24 loperamide 2 mg capsule 2 mg PO Q4H PRN LOOSE STOOL 03/17/24 sertraline 25 mg tablet 25 mg PO DAILY DEPRESSION 03/17/24 trazodone 50 mg tablet 50 mg PO QHS DEPRESSION 03/17/24 amlodipine 10 mg tablet 10 mg PO DAILY BLOOD PRESSURE 30 days #0 tabs 03/19/24 hydralazine 50 mg tablet 50 mg PO BID BLOOD PRESSURE #30 tabs 03/19/24 losartan 100 mg tablet 100 mg PO DAILY BLOOD PRESSURE 30 days #0 tabs 03/19/24 cefdinir 300 mg capsule 300 mg PO BID #10 caps 03/29/24 food supplemt, lactose-reduced 0.08 gram-1.5 kcal/mL oral liquid (Ensure Plus High Protein) 120 ml PO TIDCM #0 mL 03/29/24 levetiracetam 500 mg tablet 500 mg PO BID 30 days #60 tabs 03/29/24 potassium chloride 20 mEq tablet,extended release(part/cryst) 20 meq PO BIDCM #20 tabs 03/29/24 quetiapine 25 mg tablet 50 mg (2 x 25 mg) PO 1000,1800 #60 tabs 03/29/24
--- NOTE | 2024-03-29 15:03 | CASEMGMT ---
Lori from Hospice is at [facility] meeting with patient's daughter. Per Lori family would like patient to go to the inpatient Hospice unit. Lori is working on this. Once it is known for sure patient is going to the inpatient uni will notify [facility]. Eliana Houston SOFTBALL PLAYER HENNY
--- NOTE | 2024-03-29 15:32 | CASEMGMT ---
Addendum entered by Eliana Houston 03/29/24 15:35: Lori from Hospice said they will contact [facility] to notify them patient is going to the inpatient unit. Eliana INMAN Original Note: Patient will be going to the inpatient Hospice unit today. Eliana INMAN
[2024-03-29 16:00] VITALS: BP 154/75; PULSE 99; RESP 17; TEMP 36.6; O2SAT 100
== END 2024-03-29 17:41 | disposition hospice, inpatient (51) | DRG 61 ==
LOC: ED 03:27 → PCU 05:10
PROVIDERS: Family Medicine; Admitting Provider Family Medicine; Emergency Provider Emergency Medicine; PCP Nurse Practitioner Primary Care; Visit Provider Internal Medicine
DX: I63.9 Cerebral infarction, unspecified (principal); G93.41 Metabolic encephalopathy; I69.951 Hemiplegia and hemiparesis following unspecified cerebrovascular disease affecting right dominant side; N30.00 Acute cystitis without hematuria; I67.1 Cerebral aneurysm, nonruptured; R47.01 Aphasia; D64.9 Anemia, unspecified; S01.01XA Laceration without foreign body of scalp, initial encounter; F03.90 Unspecified dementia, unspecified severity, without behavioral disturbance, psychotic disturbance, mood disturbance, and anxiety; G40.909 Epilepsy, unspecified, not intractable, without status epilepticus; I12.9 Hypertensive chronic kidney disease with stage 1 through stage 4 chronic kidney disease, or unspecified chronic kidney disease; E78.00 Pure hypercholesterolemia, unspecified; E87.6 Hypokalemia; F41.8 Other specified anxiety disorders; N18.2 Chronic kidney disease, stage 2 (mild); S20.212A Contusion of left front wall of thorax, initial encounter; L30.9 Dermatitis, unspecified; W19.XXXA Unspecified fall, initial encounter; B96.1 Klebsiella pneumoniae [K. pneumoniae] as the cause of diseases classified elsewhere; G47.00 Insomnia, unspecified; Z79.1 Long term (current) use of non-steroidal anti-inflammatories (NSAID); F41.0 Panic disorder [episodic paroxysmal anxiety]; B96.20 Unspecified Escherichia coli [E. coli] as the cause of diseases classified elsewhere; Z85.3 Personal history of malignant neoplasm of breast; Z98.1 Arthrodesis status; Z90.49 Acquired absence of other specified parts of digestive tract; Z79.82 Long term (current) use of aspirin; R29.718 NIHSS score 18; Z79.899 Other long term (current) drug therapy
CPT/HCPCS: 36415; 70450; 70496; 70498; 70553; 71045; 71101; 72125; 73502; 80048; 80053; 81001; 82140; 82607; 82746; 82962; 83735; 84100; 84484; 85025; 85610; 85730; 87077; 87086; 87088; 87186; 92526; 92610; 93005; 94668; 97162; 97166; 97530; 97535; 97802; 99252; 99282; 99285; A9575; J7030; Q9967; A4216; G0463; J2405; J3420